=== PATIENT | male | born 1940 | race Caucasian/White ===

== ENCOUNTER 2016-10-20 23:23 | Inpatient (IN) | payer OTHER ==
[2016-10-20] MEDS ORDERED: SODIUM CHLORIDE 1,000 ML IV STA (23:54)
[2016-10-20] MEDS ORDERED: PANTOPRAZOLE SODIUM 40 MG in SODIUM CHLORIDE 100 ML IVPB ONE (23:54)
--- NOTE | 2016-10-21 00:16 | PDOC ---
History of Present Illness - General History Source: EMS, Family, Alf Records Exam Limitations: Clinical Condition, Dementia - History of Present Illness Initial Comments: 10/21/16 01:06 The patient is a 76 year old male, with a significant past medical history of anemia (requiring prior blood transfusions), diabetes, coronary artery disease s /p CABG/stent, Parkinsons disease and dementia, who presents to the emergency department via EMS from [facility] for evaluation. jail records report that the patient had one episode of bright red bloody hematemesis just prior to presentation. The patients family is at the bedside. The patients reports that she visits the patient daily. She reports that the patient was at his baseline state of health yesterday. History is provided entirely by the patients family and skilled nursing records due to the patients baseline dementia. As per family, the patient was recently admitted to a hospital in [place], where he received blood transfusions. While the patient was recently admitted, an endoscopy was attempted but was deferred given the patient 's general clinical condition. Currently in the ED, the patient is endorsing some abdominal discomfort but is unable to provide specifics secondary to the dementia. Allergies: None reported. Past Surgical History: CABG, Stent. Social History: Non smoker. Denies alcohol or drug use. PCP: Dr. Flood <Ashley Harris - Last Filed: 10/21/16 01:57> - General History Source: EMS, Family Exam Limitations: Clinical Condition <Figueroa Tamez - Last Filed: 10/25/16 08:29> - General Chief Complaint: Coffee Ground Emesis Stated Complaint: GI BLEED Time Seen by Provider: 10/20/16 23:37 Past History <Ashley Harris - Last Filed: 10/21/16 01:57> <Figueroa Tamez - Last Filed: 10/25/16 08:29> - Past Medical History Allergies/Adverse Reactions: Allergies Allergy/AdvReac Type Severity Reaction Status Date / Time No Known Allergies Allergy Verified 10/20/16 23:54 Review of Systems - Review of Systems Able to Perform ROS?: No Comments:: 10/21/16 00:46 Unable to perform ROS secondary to the patients baseline dementia. <Ashley Harris - Last Filed: 10/21/16 01:57> *Physical Exam - Vital Signs Last Vital Signs Temp Pulse Resp BP Pulse Ox 92 H 16 79/62 100 10/20/16 23:54 10/20/16 23:54 10/20/16 23:54 10/20/16 23:54 - Physical Exam Comments: 10/21/16 01:57 GENERAL: Awake, alert, ill appearing. HEAD: No signs of trauma. EYES: PERRLA, EOMI, sclera anicteric, conjunctiva clear. ENT: Auricles normal inspection, hearing grossly normal, nares patent, oropharynx clear without exudates. Moist mucosa. NECK: Normal ROM, supple, no lymphadenopathy, JVD, or masses. LUNGS: Tachypneic. Breath sounds equal, clear to auscultation bilaterally. No wheezes, and no crackles. HEART: Regular rate and rhythm, normal S1 and S2, no murmurs, rubs or gallops. ABDOMEN: Epigastric tenderness, diffuse abdominal discomfort. Soft, normoactive bowel sounds. No guarding, no rebound. No masses. EXTREMITIES: Normal range of motion, no edema. No clubbing or cyanosis. No cords , erythema, or tenderness. NEUROLOGICAL: Cranial nerves II through XII intact. Normal speech, gait deferred. SKIN: Pallor appearance. Dry, normal turgor, no rashes or lesions noted. <Ashley Harris - Last Filed: 10/21/16 01:57> ED Treatment Course - LABORATORY CBC & Chemistry Diagram: 10/21/16 00:25 10/21/16 00:25 <Ashley Harris - Last Filed: 10/21/16 01:57> - LABORATORY CBC & Chemistry Diagram: 10/25/16 05:30 10/25/16 05:30 - RADIOLOGY Radiology Studies Ordered: Category Date Time Status CHEST X-RAY PORTABLE* [RAD] Stat Radiology 10/20/16 23:54 Ordered <Figueroa Tamez - Last Filed: 10/25/16 08:29> Medical Decision Making - Critical Care Time Total Critical Care Time (minutes): 35 Critical Care Statement: The care of this patient involved high complexity decision making to prevent further life threatening deterioration of the patient 's condition and/or to evalute & treat vital organ system(s) failure or risk of failure. - Medical Decision Making 10/21/16 01:57 Connected and case discussed with Dr. Adan at 01:30. <Ashley Harris - Last Filed: 10/21/16 01:57> - Medical Decision Making 10/21/16 00:24 A portion of this note was documented by scribe services under my direction. I have reviewed the details of the note, within reason, and agree with the documentation with the following case summary and management plan written by me. Patient treated in the ED. Nursing notes are reviewed and incorporated into the medical decision-making. Vital signs reviewed. Peripheral IV access obtained by the nurse, laboratory studies are drawn and sent, reviewed and interpreted by myself. Vital Signs Temp Pulse Resp BP Pulse Ox 92 H 16 79/62 100 10/20/16 23:54 10/20/16 23:54 10/20/16 23:54 10/20/16 23:54 76-year-old male with past medical history of dementia, Parkinson's disease, coronary disease status post stents and quadruple bypass, anemia, prior blood transfusions, diabetes presents from [facility] for hematemesis. According to the family, the patient was in his usual state of health yesterday. Patient's was visiting the patient. However, patient was noted to have 1 episode of bloody hematemesis. He's been complaining about abdominal discomfort pain. However, given his dementia, patient's unable to further characterize. His blood pressure was approximately 80 systolic by EMS. Was given IV fluids which to blood pressure improved. Patient was recently admitted one week ago at the hospital for 3 units of blood transfusions. They had attempted to perform an endoscopy but was deferred given the patient's general condition. I had spoken to the patient regarding patient circumstances. They confirm that the patient is DNR and DNI. They state that they are okay with blood transfusions and IV fluids. At this time, there leaning against heroic measures at this time. Protonix bolus and drip was ordered. There are concerns for upper GI bleed. Patient's condition is guarded. 10/21/16 01:52 CBC, BMP 10/21/16 00:25 10/21/16 00:25 CMP Sodium 141 mmol/L (136-145) 10/21/16 00:25 Potassium 4.8 mmol/L (3.5-5.1) 10/21/16 00:25 Chloride 101 mmol/L (98-107) 10/21/16 00:25 Carbon Dioxide 27 mmol/L (21-32) 10/21/16 00:25 Anion Gap 13 (8-16) 10/21/16 00:25 BUN 29 mg/dL (7-18) H 10/21/16 00:25 Creatinine 1.0 mg/dL (0.7-1.3) 10/21/16 00:25 Creat Clearance w eGFR > 60 (>60) 10/21/16 00:25 Random Glucose 185 mg/dL (74-106) H 10/21/16 00:25 Lactic Acid 7.387 mmol/L (0.4-2.0) H* 10/21/16 00:25 Calcium 8.1 mg/dL (8.5-10.1) L 10/21/16 00:25 Phosphorus 4.2 mg/dL (2.5-4.9) 10/21/16 00:25 Magnesium 1.8 mg/dL (1.8-2.4) 10/21/16 00:25 Total Bilirubin 0.5 mg/dL (0.2-1.0) 10/21/16 00:25 AST 18 U/L (15-37) 10/21/16 00:25 ALT 17 U/L (12-78) 10/21/16 00:25 Alkaline Phosphatase 91 U/L (45-117) 10/21/16 00:25 Creatine Kinase 47 IU/L (39-308) 10/21/16 00:25 Troponin I < 0.02 ng/ml (0.00-0.05) 10/21/16 00:25 Total Protein 5.6 g/dl (6.4-8.2) L 10/21/16 00:25 Albumin 2.4 g/dl (3.4-5.0) L 10/21/16 00:25 Patient alcohol was 5.8. Lactic acid 7.4 which is likely secondary to anemia. However, antibiotics initiated for lactic acidosis. 2 units of PRBCs ordered. Protonix has been ordered. I spoke with the family with the patient's poor prognosis. There where that the patient has a possibility of . The meantime , they reconfirmed that he is DNR/DNI. At this time, they are considering potentially allowing endoscopy for the patient's father but is aware that this may not be the best option for him. They state that they will discuss this with epigastric. The patient had seen Dr. Munoz in the past. CAT scan the abdomen pelvis is ordered and pending. Case discussed with ICU CENTRIFUGAL SEPARATOR Jimy who accepts the patient to the ICU. Case discussed with Dr. Adan who accepts the patient to his service. Case discussed in detail with admitting physician including history, physical exam and ancillary studies. Admitting physician has assumed care for the patient, will follow all pending diagnostics and will complete the evaluation and treatment. <Figueroa Tamez - Last Filed: 10/25/16 08:29> *DC/Admit/Observation/Transfer - Attestations Scribe Attestion: 10/21/16 00:44 Documentation prepared by Ashley Harris, acting as medical concierge for Figueroa Tamez MD. <Ashley Harris - Last Filed: 10/21/16 01:57> - Discharge Dispostion Admit: Yes <Figueroa Tamez - Last Filed: 10/25/16 08:29> Diagnosis at time of Disposition: UGIB (upper gastrointestinal bleed) Anemia Qualifiers: Anemia type: unspecified type Qualified Code(s): D64.9 - Anemia, unspecified - Referrals
[2016-10-21 00:35] LABS: BASOPHIL 0.7 % (0-2.0); EOSINOPHIL 0.3 % (0-4.5); MCH 23.8 pg (25.7-33.7); MCHC 28.8 g/dl (32.0-35.9); MEAN CELL VOLUME 82.7 fl (80-96); MEAN PLT VOLUME 7.4 fl (7.5-11.1); NEUTROPHILS 78.2 % (42.8-82.8); PLATELET COUNT 394 K/MM3 (134-434); WHITE BLOOD COUNT 14.1 K/mm3 (4.0-10.0)
[2016-10-21] MEDS ORDERED: PANTOPRAZOLE SODIUM 40 MG VIAL ONE (00:52)
[2016-10-21 00:56] LABS: INR 1.3 (0.82-1.09); PROTHROMBIN TIME (PATIENT) 14.4 SEC (9.98-11.88)
[2016-10-21 00:59] LABS: ACTIVATED PTT 26.2 SECONDS (26.9-34.4)
[2016-10-21 01:07] LABS: ALBUMIN 2.4 g/dl (3.4-5.0); ANION GAP 13 (8-16); BILIRUBIN,TOTAL 0.5 mg/dL (0.2-1.0); CALCIUM 8.1 mg/dL (8.5-10.1); CO2 27 mmol/L (21-32); GLUCOSE,RANDOM 185 mg/dL (74-106); MAGNESIUM 1.8 mg/dL (1.8-2.4); PHOSPHOROUS 4.2 mg/dL (2.5-4.9); SGOT/AST 18 U/L (15-37); SGPT/ALT 17 U/L (12-78); TOT PROT 5.6 g/dl (6.4-8.2)
[2016-10-21 01:09] LABS: ALK PHOS 91 U/L (45-117); TROPONIN I < 0.02 ng/ml (0.00-0.05)
[2016-10-21] MEDS ORDERED: PIPERACILLIN/TAZOB 3.375 GM/50 ML PRE-DOCKED IVPB ONE ×2 (01:18→02:45)
[2016-10-21] MEDS: PANTOPRAZOLE SODIUM 80 MG in SODIUM CHLORIDE 100 ML IVPB SCH ×3 (01:18→20:15)
[2016-10-21] MEDS ORDERED: VANCOMYCIN 1,000 MG in DEXTROSE 5%-WATER - 250 ML IVPB ONE (01:18)
[2016-10-21] MEDS ORDERED: morphine CARPU-JECT 2 MG/1 ML DISP.SYRIN IVPUSH ONE (01:42)
[2016-10-21] MEDS ORDERED: ONDANSETRON 4 MG/2 ML VIAL IVPB PRN ×2 (01:48→23:05)
[2016-10-21] MEDS ORDERED: morphine CARPU-JECT 2 MG/1 ML DISP.SYRIN IVPUSH PRN ×2 (01:48→23:05)
[2016-10-21] MEDS ORDERED: VANCOMYCIN 1 GRAM (PRE-DOCKED) 250 ML IVPB ONE (01:54)
[2016-10-21] MEDS ORDERED: PIPERACILLIN/TAZOB 3.375 GM 3.375 GM in DEXTROSE 5%-WATER - 50 ML IVPB SCH (02:00)
[2016-10-21] MEDS: SODIUM CHLORIDE 1,000 ML IV SCH ×2 (03:19→08:56)
[2016-10-21 04:00] VITALS: BMI 22.6
--- NOTE | 2016-10-21 04:02 | CONSULT ---
Consult Consult Specialty:: Pulm/CCM Reason for Consultation:: hematemesis - History of Present Illness Chief Complaint: hematemesis History of Present Illness: Hx obtained from Family Member/daughter Mr Mireles is a 76 y/o man with dementia, parkinsons, HTN, HL, CAD s/p CABG, stents (years ago) currently only on asa and anemia who presents from [facility] with hematemesis and anemia. Pt was previously living at home and cared for by family. Approximately 1 week ago he became less responsive and was pale prompting admission to [facility] where he was treated for pneumonia and anemia. He was given a few units of blood and Upper endoscopy was considered as there was no source of bleeding but deferred due to overall condition/dementia as well as DNR/DNI status (form in chart). He spent a few days in hospital and was discharged to [facility]. His Hgb was checked on 10/18 and was 8.9. Today at [place] he had an episode of dark red hematemesis and EMS was called. In ER pt was afebrile, hemodynamically stable. Hgb was 5.8. Pt was pale but without distress. Lactate was 7. Protonix bolus and gtt was started. Broad spectrum abx were started as well. There was no sick prodrome and family relates pt had been having a good day prior to vomiting. Pt transferred to ICU for further care. - History Source History Provided By: Family Member, Medical Record Limitations to Obtaining History: Dementia - Past Medical History DIRECTOR OF MEDICAL REVIEW: Yes: Dementia, Parkinson's Cardio/Vascular: Yes: CAD, HTN, Hyperlipdemia - Past Surgical History Past Surgical History: Yes: Bypass, CABG - Alcohol/Substance Use Hx Alcohol Use: Yes Number of Drinks Daily: 3 History of Substance Use: reports: None Date of Last Use: 06/20/11 - Smoking History Smoking history: Former smoker Have you smoked in the past 12 months: No If you are a former smoker, when did you quit?: > 20 yrs ago - Social History Usual Living Arrangement: [facility] ADL: Family Assistance Place of : Other ([place]) History of Recent Travel: No Home Medications - Allergies Allergies/Adverse Reactions: Allergies Allergy/AdvReac Type Severity Reaction Status Date / Time No Known Allergies Allergy Verified 10/20/16 23:54 - Home Medications Home Medications (free text): amlodipine. asa. carbidopa-levodopa. colace. lasix. glipizid. lisinopril. metformin. pantoprazole. ploglitazone. simvastatin. toprol xl Family Disease History - Family Disease History Family History: Unremarkable Review of Systems Unable to obtain ROS, reason: dementia Physical Exam Vital Signs: Vital Signs Temperature Pulse Rate 86 10/21/16 01:27 Respiratory Rate 20 10/21/16 01:27 Blood Pressure 103/51 10/21/16 01:27 O2 Sat by Pulse Oximetry (%) 100 10/21/16 01:27 Constitutional: Yes: Well Nourished, No Distress Eyes: Yes: Conjunctiva Clear, Cataracts HENT: Yes: Atraumatic, Normocephalic Neck: Yes: Supple, Trachea Midline. No: Lymphadenopathy Cardiovascular: Yes: Regular Rate and Rhythm, S1, S2 Respiratory: Yes: CTA Bilaterally. No: Accessory Muscle Use Gastrointestinal: Yes: Normal Bowel Sounds, Soft, Tenderness, Epigastrium. No: Pulsatile Mass ...Rectal Exam: Yes: Deferred Renal/: Yes: WNL Breast(s): Yes: WNL Musculoskeletal: Yes: WNL Extremities: Yes: WNL Edema: No Peripheral Pulses WNL: Yes Integumentary: Yes: WNL Neurological: Yes: Alert, Confusion, Cran Nerves II-XII Intact. No: Facial Droop Imaging - Results EKG: Image Reviewed (Sinus with PAC, TWI V1,V2, normal axis, intervals) Problem List - Problems (1) Anemia Code(s): D64.9 - ANEMIA, UNSPECIFIED Qualifiers: Anemia type: unspecified type Qualified Code(s): D64.9 - Anemia, unspecified (2) UGIB (upper gastrointestinal bleed) Code(s): K92.2 - GASTROINTESTINAL HEMORRHAGE, UNSPECIFIED Assessment/Plan Pulm/CCM Pt seen and examined in ICU A/ 76 y/o man with anemia and hematemesis. He is on ASA but not on any other NSAID, anti-plt therapy, or anti coagulation. GI source of bleeding was already presumed but investigation was deferred due to debility and dementia. He now has hematemesis, is on a protonix gtt and getting PRBC P/ -GI consulted -cont protonix gtt -hold asa, BB and anti-htn -2 PRBC and repeat CBC -maintain 2 peripheral IV at min, 18ga preferred -blood cxl done, sent UA and get cxr -would hold broadly treating for infection as there is no localizing symptoms or prodrome -SCD, protonix gtt -DNR/DNI -ok for floor if holding on to prbc and no further bleeding Briefly discussed options with family regarding EGD. They are weighing options and would like to discuss with GI in am Jimy Schwartz ACNP [id number] 35min CCT Critical Care Total Critical Care Time (in minutes): 35 Critical Care Statement: The care of this patient involved high complexity decision making to prevent further life threatening deterioration of the patient 's condition and/or to evalute & treat vital organ system(s) failure or risk of failure.
[2016-10-21 08:53] LABS: URINE APPEARANCE CLEAR; URINE BILIRUBIN NEGATIVE (NEGATIVE); URINE BLOOD NEGATIVE (NEGATIVE); URINE COLOR YELLOW; URINE GLUCOSE (UA) NEGATIVE (NEGATIVE); URINE KETONE TRACE (NEGATIVE); URINE LEUK ESTERASE TRACE (NEGATIVE); URINE NITRITE NEGATIVE (NEGATIVE); URINE PROTEIN NEGATIVE (NEGATIVE); URINE UROBILINOGEN 2.0 E.U/dl E.U./dl (0.2-1.0)
[2016-10-21] MEDS: MUPIROCIN 2% TOPICAL OINTMENT FOR DECOLONIZATION NS SCH ×2 (09:03→22:00)
[2016-10-21 09:14] LABS: URINE HYALINE CAST 20 /lpf; URINE MUCUS RARE; URINE RBC 1 /hpf (0-3); URINE WBC 4 /hpf (3-5)
[2016-10-21 09:52] LABS: ANISOCYTOSIS 4+; HYPOCHROMIA 3+; MICROCYTOSIS 1+; OVALOCYTES 1+; POIKILOCYTOSIS 1+; POLYCHROMASIA 1+; TEAR DROP CELLS 1+
[2016-10-21 10:19] LABS: EOSINOPHIL 0.2 % (0-4.5); MCH 27.4 pg (25.7-33.7); MCHC 33.4 g/dl (32.0-35.9); MEAN CELL VOLUME 81.9 fl (80-96); NEUTROPHILS 67.1 % (42.8-82.8); PLATELET COUNT 227 K/MM3 (134-434); RDW 21.3 % (11.9-15.9); WHITE BLOOD COUNT 8.4 K/mm3 (4.0-10.0)
[2016-10-21 10:49] LABS: ALBUMIN 2.2 g/dl (3.4-5.0); ANION GAP 7 (8-16); CALCIUM 7.3 mg/dL (8.5-10.1); CO2 29 mmol/L (21-32); COCKROFT - GAULT 89; CREATININE 0.7 mg/dL (0.7-1.3); GLUCOSE,RANDOM 112 mg/dL (74-106); MAGNESIUM 1.7 mg/dL (1.8-2.4); SGOT/AST 16 U/L (15-37); SGPT/ALT 15 U/L (12-78)
[2016-10-21 10:50] LABS: ALK PHOS 72 U/L (45-117); BILIRUBIN,TOTAL 0.7 mg/dL (0.2-1.0); TOT PROT 5.1 g/dl (6.4-8.2)
--- NOTE | 2016-10-21 12:35 | PN ---
Physical Exam: SUBJECTIVE: Patient seen and examined. 76 y/o man with anemia and hematemesis. He is on ASA but not on any other NSAID , anti-plt therapy, or anti coagulation. GI source of bleeding was already presumed but investigation was deferred due to debility and dementia. He now has hematemesis, is on a protonix gtt and getting PRBC Patient lying comfortably in bed. got 2 units blood over night, Hb 7.4 no over nigh haemtmasis. lactic acid decreased to normal afebrile. OBJECTIVE: Vital Signs Period Temp Pulse Resp BP Sys/Albert Pulse Ox Last 24 Hr 97 F-98.4 F 78-82 15-20 79-129/52-63 98 GENERAL: The patient is awake, EYES: PERRL, extraocular movements intact, ENT: Ears normal, moist mucous membranes. NECK: Trachea midline, full range of motion, supple. LUNGS: Breath sounds equal, clear to auscultation bilaterally, no accessory muscle use. HEART: s1s2 normal ABDOMEN: Soft, nontender, nondistended, normoactive bowel sounds, no guarding, no rebound, EXTREMITIES: no edema. SKIN: Warm, dry, Laboratory Results - last 24 hr 10/21/16 10/21/16 10/21/16 08:00 09:45 09:45 WBC 8.4 D RBC 2.69 L Hgb 7.4 L D Hct 22.0 L MCV 81.9 MCHC 33.4 RDW 21.3 H D Plt Count 227 D MPV 7.0 L Neutrophils % 67.1 Lymphocytes % 24.4 D Monocytes % 7.3 Eosinophils % 0.2 Basophils % 1.0 Sodium 143 Potassium 4.2 Chloride 107 Carbon Dioxide 29 Anion Gap 7 L BUN 38 H D Creatinine 0.7 D Creat Clearance w eGFR > 60 Random Glucose 112 H D Lactic Acid Calcium 7.3 L Magnesium 1.7 L Total Bilirubin 0.7 D AST 16 ALT 15 Alkaline Phosphatase 72 D Total Protein 5.1 L Albumin 2.2 L Urine Color Yellow Urine Appearance Clear Urine pH 5.0 Urine Protein Negative Urine Glucose (UA) Negative Urine Ketones Trace H Urine Blood Negative Urine Nitrite Negative Urine Bilirubin Negative Urine Urobilinogen 2.0 e.u/dl Ur Leukocyte Esterase Trace H Urine RBC 1 Urine WBC 4 Ur Epithelial Cells Rare Hyaline Casts 20 Urine Mucus Rare 10/21/16 09:45 WBC RBC Hgb Hct MCV MCHC RDW Plt Count MPV Neutrophils % Lymphocytes % Monocytes % Eosinophils % Basophils % Sodium Potassium Chloride Carbon Dioxide Anion Gap BUN Creatinine Creat Clearance w eGFR Random Glucose Lactic Acid 1.703 Calcium Magnesium Total Bilirubin AST ALT Alkaline Phosphatase Total Protein Albumin Urine Color Urine Appearance Urine pH Urine Protein Urine Glucose (UA) Urine Ketones Urine Blood Urine Nitrite Urine Bilirubin Urine Urobilinogen Ur Leukocyte Esterase Urine RBC Urine WBC Ur Epithelial Cells Hyaline Casts Urine Mucus Active Medications Generic Name Dose Route Start Last Admin Trade Name Freq PRN Reason Stop Dose Admin Chlorhexidine Gluconate 1 applic 10/21/16 22:00 Hibiclens For Decolonization - TP HS JOSE Pantoprazole Sodium 80 mg/ 100 mls @ 10 mls/hr 10/20/16 23:45 10/21/16 10:44 Sodium Chloride IVPB 10 mls/hr Q10H JOSE Administration 8 MG/HR Sodium Chloride 1,000 mls @ 75 mls/hr 10/21/16 02:00 10/21/16 08:56 Normal Saline - IV 75 mls/hr ASDIR JOSE Administration Piperacillin Sod/Tazobactam 50 mls @ 100 mls/hr 10/21/16 02:00 Sod 3.375 gm/ Dextrose IVPB Q8H-IV JOSE Protocol Magnesium Sulfate 1 gm 10/21/16 12:30 Magnesium Sulfate IVPB 10/21/16 12:31 ONCE ONE Morphine Sulfate 2 mg 10/21/16 01:48 Morphine Injection - IVPUSH Q4H PRN PAIN Mupirocin 1 applic 10/21/16 10:00 10/21/16 09:03 Bactroban Ointment (For Decolonization) - NS 10/26/16 09:59 1 applic BID JOSE Administration Ondansetron HCl 4 mg 10/21/16 01:48 Zofran Injection IVPB Q6H PRN NAUSEA ASSESSMENT/PLAN: 76 y/o man with anemia and hematemesis. He is on ASA but not on any other NSAID , anti-plt therapy, or anti coagulation. GI source of bleeding was already presumed but investigation was deferred due to debility and dementia. He now has hematemesis, is on a protonix gtt and getting PRBC Hematemesis -GI consult -cont with protonix gtt -continue to hold hold asa, BB and anti-htn -hb 7.4, will give him one more pc, keep hb> 8 -continue with IV fluid - NPO hypomagnesemia 1gm magnesium given h/o HTN hold htn meds h/o CAD, stent and CABG hold aspirin in view of hematmesis fluid NS 75 ml/hr electrolyte: repeat in am nutrition; npo dvt pro; scd gi pro; protonix dispo: transfer to [facility] surg Visit type - Emergency Visit Emergency Visit: Yes ED Registration Date: 10/21/16 Care time: The patient presented to the Emergency Department on the above date and was hospitalized for further evaluation of their emergent condition. - New Patient This patient is new to me today: Yes Date on this admission: 10/21/16 - Critical Care Critical Care patient: Yes Total Critical Care Time (in minutes): 45 Critical Care Statement: The care of this patient involved high complexity decision making to prevent further life threatening deterioration of the patient 's condition and/or to evalute & treat vital organ system(s) failure or risk of failure.
[2016-10-21] MEDS ORDERED: MAGNESIUM SULF 50% (8.12 MEQ/2 ML-1 GM VIAL) IVPB ONE (13:30)
--- NOTE | 2016-10-21 16:42 | CONSULT ---
Consult Consult Specialty:: infectious diseases Reason for Consultation:: leukocytosis - History of Present Illness Chief Complaint: hemoptysis History of Present Illness: 76 year old male, with a significant past medical history of anemia , diabetes, coronary artery disease s/p CABG/stent, Parkinsons disease and dementia, who was admitted from [facility] for evaluation. jail records report that the patient had one episode of bright red bloody hematemesis just prior to presentation. The patients family is at the bedside. 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 Cardio/Vascular: Yes: CAD, HTN, Hyperlipdemia - Past Surgical History Past Surgical History: Yes: Bypass, CABG - Alcohol/Substance Use Hx Alcohol Use: Yes Number of Drinks Daily: 3 History of Substance Use: reports: None Date of Last Use: 06/20/11 - Smoking History Smoking history: Former smoker Have you smoked in the past 12 months: No If you are a former smoker, when did you quit?: > 20 yrs ago - Social History Usual Living Arrangement: Longterm ADL: Family Assistance History of Recent Travel: No Home Medications - Allergies Allergies/Adverse Reactions: Allergies Allergy/AdvReac Type Severity Reaction Status Date / Time No Known Allergies Allergy Verified 10/20/16 23:54 Review of Systems Unable to obtain ROS, reason: unable to obtain Physical Exam Vital Signs: Vital Signs Temperature 97.8 F 10/21/16 16:00 Pulse Rate 88 10/21/16 16:00 Respiratory Rate 18 10/21/16 16:00 Blood Pressure 120/55 10/21/16 16:00 O2 Sat by Pulse Oximetry (%) 98 10/21/16 10:35 Constitutional: Yes: Mild Distress, Other Eyes: Yes: Conjunctiva Clear Cardiovascular: Yes: Pulse Irregular, Other Respiratory: Yes: Regular, On Nasal O2, Rhonchi, Other Gastrointestinal: Yes: Normal Bowel Sounds, Soft Musculoskeletal: Yes: WNL Extremities: Yes: WNL Neurological: Yes: Alert, Other Psychiatric: Yes: Alert, Other Labs: CBC, BMP 10/21/16 09:45 05/04/17 09:45 Assessment/Plan - Problems (1) Anemia Code(s): D64.9 - ANEMIA, UNSPECIFIED Qualifiers: Anemia type: unspecified type Qualified Code(s): D64.9 - Anemia, unspecified (2) UGIB (upper gastrointestinal bleed) Code(s): K92.2 - GASTROINTESTINAL HEMORRHAGE, UNSPECIFIED leukocytosis after evaluating the patient i think patients leukocytosis is probably form his condition,but he has a very high chance of aspiration I agree with keeping him prophylactically on zosyn for the time being and during the procedure--egd is planned plan continue current mgmt continue zosyn transfusion icu mgmt rest as per the primary team cc time 45 min
--- NOTE | 2016-10-21 17:25 | EKG ---
Test Reason : Blood Pressure : / mmHG Vent. Rate : 086 BPM Atrial Rate : 086 BPM P-R Int : 170 ms QRS Dur : 076 ms QT Int : 410 ms P-R-T Axes : 044 067 062 degrees QTc Int : 490 ms POOR DATA QUALITY, INTERPRETATION MAY BE ADVERSELY AFFECTED SINUS RHYTHM WITH PREMATURE ATRIAL COMPLEXES POSSIBLE ANTERIOR INFARCT , AGE UNDETERMINED ABNORMAL ECG NO PREVIOUS ECGS AVAILABLE Confirmed by RTOY WELSH, REYNA ([id number]) on 10/21/2016 5:25:07 PM Referred By: Confirmed By:REYNA SIMMONS MD
[2016-10-21] MEDS: PIPERACILLIN/TAZOB 3.375 GM 50 ML IVPB SCH (18:15)
[2016-10-21] MEDS ORDERED: PHYTONADIONE 10 MG/1 ML AMP IVPB ONE (18:52)
--- NOTE | 2016-10-21 19:00 | CON.GI ---
Consult Consult Specialty:: GASTROENTEROLOGY Reason for Consultation:: POSSIBLE GI BLEEDING - History of Present Illness Chief Complaint: ANEMIA, "COUGHING UP BLOOD" History of Present Illness: 76 YEAR OLD MALE WITH HISTORY OF PARKINSON'S/ DEMENTIA WHO IS A DNR/DNI ADMITTED FROM INTERMEDI[facility] DUE TO [facility]AG[facility] STATES "COUGHING UP" BLOOD. UPON ARRIVAL TO ED HIS HGB WAS IN THE5.0'SAND DURING THE NIGHT HE HAD BLACK STOOLS. HE WAS PLACE ON PROTNICX AND MADE NPO. HE GOT TWO UNITS BLOOD AND THE COUNTS WENT UP APPROPRIATELY TO THE 7'S. HE HAD A BROWN BOWEL MOVEMENT THIS AM. ABOUT TWO WEEKS AGO HE WAS AT HOME WITH CHANGE IN MENTAL STATUS AND COUGH/SOB AND WAS ADMITTED TO [facility]. HE WAS TREATED FOR PNEUMONIA AND WAS ALSO FOUND TO BE ANEMIA AND RECEIVED 4 UNITS OF PRBC'S. ACCORDING TO THE DAUGTHER HIS STOOLS WERE NEGATIVE FOR OCCULT BLOOD. 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 Cardio/Vascular: Yes: CAD, HTN, Hyperlipdemia Heme/Onc: Yes: Anemia - Past Surgical History Past Surgical History: Yes: Bypass, CABG, Cataract Removal - Alcohol/Substance Use Hx Alcohol Use: Yes Number of Drinks Daily: 3 (DAUGHTER STATES HE DRANK HEAVY IN THE PAST, SINCE PARKINSON DX HE HAS STOPPED) History of Substance Use: reports: None Date of Last Use: 06/20/11 - Smoking History Smoking history: Former smoker Have you smoked in the past 12 months: No If you are a former smoker, when did you quit?: > 20 yrs ago - Social History Usual Living Arrangement: [facility] ADL: Family Assistance History of Recent Travel: No Home Medications - Allergies Allergies/Adverse Reactions: Allergies Allergy/AdvReac Type Severity Reaction Status Date / Time No Known Allergies Allergy Verified 10/20/16 23:54 Family Disease History - Family Disease History Family Disease History: Other: Father (CIRRHOSIS), Mother (TUMOR UNKNOWN), Brother (STROKE) Review of Systems - Review of Systems Constitutional: reports: No Symptoms Eyes: reports: No Symptoms HENT: reports: No Symptoms Neck: reports: No Symptoms Cardiovascular: reports: No Symptoms Respiratory: reports: No Symptoms Gastrointestinal: reports: Abdominal Pain, Dysphagia, Other (RARE HEART BURN) Genitourinary: reports: No Symptoms Musculoskeletal: reports: No Symptoms Integumentary: reports: No Symptoms Neurological: reports: Incoordination, Tremors, Other (BEDRIDDEN,DEMENTIA, DYSPHAGIA) Endocrine: reports: No Symptoms Hematology/Lymphatic: reports: No Symptoms Physical Exam-GI Vital Signs: Vital Signs Temperature 98.9 F 10/21/16 18:00 Pulse Rate 82 10/21/16 18:00 Respiratory Rate 20 10/21/16 18:00 Blood Pressure 117/70 10/21/16 18:00 O2 Sat by Pulse Oximetry (%) 98 10/21/16 10:35 Constitutional: Yes: Well Nourished, No Distress Eyes: Yes: Conjunctiva Clear HENT: Yes: Atraumatic Cardiovascular: Yes: Regular Rate and Rhythm, Murmur, S1, S2, Other (MIDLINE SCAR) Respiratory: Yes: CTA Bilaterally Gastrointestinal Inspection: Yes: Distention ...Auscultate: Yes: Normoactive Bowel Sounds ...Palpate: Yes: Soft, Tenderness, Epigastium Edema: Yes Edema: LLE: 2+, RLE: 2+ Neurological: Yes: Alert Labs: CBC, BMP 10/21/16 09:45 10/21/16 09:45 INR, PTT INR 1.30 (0.82-1.09) H 10/21/16 00:25 Laboratory Tests 10/21/16 10/21/16 10/21/16 00:25 00:25 00:25 WBC 14.1 H RBC 2.45 L Hgb 5.8 L* Hct 20.3 L MCV 82.7 MCHC 28.8 L RDW 29.0 H Plt Count 394 MPV INR 1.30 H Sodium 141 Potassium 4.8 Chloride 101 Carbon Dioxide 27 Anion Gap 13 BUN 29 H Creatinine 1.0 Creat Clearance w eGFR > 60 Random Glucose 185 H Lactic Acid Total Bilirubin 0.5 AST 18 ALT 17 Alkaline Phosphatase 91 Total Protein 5.6 L Albumin 2.4 L 10/21/16 10/21/16 10/21/16 00:25 09:45 09:45 WBC 8.4 D RBC 2.69 L Hgb 7.4 L D Hct 22.0 L MCV 81.9 MCHC 33.4 RDW 21.3 H D Plt Count 227 D MPV 7.0 L INR Sodium 143 Potassium 4.2 Chloride 107 Carbon Dioxide 29 Anion Gap 7 L BUN 38 H D Creatinine 0.7 D Creat Clearance w eGFR > 60 Random Glucose 112 H D Lactic Acid 7.387 H* Total Bilirubin 0.7 D AST 16 ALT 15 Alkaline Phosphatase 72 D Total Protein 5.1 L Albumin 2.2 L 10/21/16 09:45 WBC RBC Hgb Hct MCV MCHC RDW Plt Count MPV INR Sodium Potassium Chloride Carbon Dioxide Anion Gap BUN Creatinine Creat Clearance w eGFR Random Glucose Lactic Acid 1.703 Total Bilirubin AST ALT Alkaline Phosphatase Total Protein Albumin Problem List - Problems (1) UGIB (upper gastrointestinal bleed) Code(s): K92.2 - GASTROINTESTINAL HEMORRHAGE, UNSPECIFIED (2) Acute blood loss anemia Code(s): D62 - ACUTE POSTHEMORRHAGIC ANEMIA (3) Dementia Code(s): F03.90 - UNSPECIFIED DEMENTIA WITHOUT BEHAVIORAL DISTURBANCE (4) Parkinson disease Code(s): G20 - PARKINSON'S DISEASE (5) CAD (coronary artery disease) Code(s): I25.10 - ATHSCL HEART DISEASE OF [place] CORONARY ARTERY W/O ANG PCTRS (6) S/P CABG x 3 Assessment/Plan: KEEP NPO CONTINUE IV PROTONIX CBC AT 11 O'CLOCK POST THIRD UNIT PRBC VIT K 10 MG IVPB SINCE ON ABX AND CURRENT INR IS 1.3 BLEEDING MORE THAN LIKELY UPPER, SMALL BOWEL OR RIGHT COLON. MALIGNANCY IS ON THE DIFFERENTIAL LIST PLUS ESOPHAGITIS, PUD, AVMS,EROSIVE GASTRITIS, PORTAL GASTROPATHY AND/OR VARICES. I HAVE SPOKEN WITH HEALTH CARE PROXY AND FAMILY IN DETAIL. I HAVE EXPLAINED TO THEM THAT TO PROCEED TO ENDOSCOPY WOULD BE A HIGH RISK PROCEDURE AND THE RISKS WOULD BE: OVER SEDATION, POSSIBLE INTUBATION, FURTHER UNCONTROLLED BLEEDING , PERFORATION, ASPIRATION AND EVEN . I HAVE ALSO EXPLAINED THAT THE PROCEDURE MAY FIND HE SOURCE OF BLEEDING AND MAY BE ABLE TO TREAT THAT BLEEDING. THEY WILL CONSIDER THIS AND LET ME KNOW IN THE AM IF THEY WOULD LIKE TO PROCEED WITH THE EXAM. MALCOLM HAM MD Code(s): Z95.1 - PRESENCE OF AORTOCORONARY BYPASS GRAFT
--- NOTE | 2016-10-21 20:05 | HP ---
Admitting History and Physical - Primary Care Physician PCP: Saturnino Flood - Admission Chief Complaint: Unable to obtain History of Present Illness: Mr Mireles is a 76 year old male who was admitted for anemia. I spoke with patient's daughter over the phone. She says Mr Mireles was in his normal state of health and was doing well at the SNF. However yesterday he had an episode of hematemesis and was brought in. She states that he had this in the past and was admitted at another hospital. He was transfused there and EGD was attempted but unsuccessful. He was sent here and admitted for further treatment. 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 Cardiovascular: Yes: CAD, HTN, Hyperlipdemia Heme/Onc: Yes: Anemia - Past Surgical History Past Surgical History: Yes: Bypass, CABG, Cataract Removal - Advance Directives Advance Directives: Yes: DNR - Smoking History Smoking history: Former smoker Have you smoked in the past 12 months: No If you are a former smoker, when did you quit?: > 20 yrs ago - Alcohol/Substance Use Hx Alcohol Use: Yes Number of Drinks Daily: 3 (DAUGHTER STATES HE DRANK HEAVY IN THE PAST, SINCE PARKINSON DX HE HAS STOPPED) History of Substance Use: reports: None Date of Last Use: 06/20/11 - Social History Usual Living Arrangement: Yes: [facility] ADL: Family Assistance History of Recent Travel: No Home Medications - Allergies Allergies/Adverse Reactions: Allergies Allergy/AdvReac Type Severity Reaction Status Date / Time No Known Allergies Allergy Verified 10/20/16 23:54 Family Disease History - Family Disease History Family Disease History: Other: Father (CIRRHOSIS), Mother (TUMOR UNKNOWN), Brother (STROKE) Review of Systems Unable to obtain ROS, reason: dementia Physical Examination Vital Signs: Vital Signs Temperature 98.9 F 10/21/16 18:00 Pulse Rate 82 10/21/16 18:00 Respiratory Rate 20 10/21/16 18:00 Blood Pressure 117/70 10/21/16 18:00 O2 Sat by Pulse Oximetry (%) 98 10/21/16 10:35 Constitutional: Yes: Well Nourished, No Distress, Calm Eyes: Yes: Conjunctiva Clear, PERRL HENT: Yes: Atraumatic, Normocephalic Cardiovascular: Yes: Regular Rate and Rhythm. No: Gallop, Murmur, Rub Respiratory: Yes: Regular, CTA Bilaterally. No: Rales, Rhonchi, Wheezes Gastrointestinal: Yes: Normal Bowel Sounds, Soft. No: Distention, Tenderness Extremities: Yes: WNL Edema: No Labs: CBC, BMP 10/21/16 09:45 10/21/16 09:45 Imaging - Results Chest X-ray: Report Reviewed, Image Reviewed Cat Scan: Report Reviewed Problem List - Problems (1) Acute blood loss anemia Assessment/Plan: -secondary to GIB -receiving transfusion -monitor in the ICU Code(s): D62 - ACUTE POSTHEMORRHAGIC ANEMIA (2) UGIB (upper gastrointestinal bleed) Assessment/Plan: -GI consulted -on protonix gtt -defer EGD to GI Code(s): K92.2 - GASTROINTESTINAL HEMORRHAGE, UNSPECIFIED (3) CAD (coronary artery disease) Assessment/Plan: -no complaints of chest pain -monitor -no anticoagulation or antiplatelet agents Code(s): I25.10 - ATHSCL HEART DISEASE OF [place] CORONARY ARTERY W/O ANG PCTRS (4) Dementia Assessment/Plan: -at baseline per family Code(s): F03.90 - UNSPECIFIED DEMENTIA WITHOUT BEHAVIORAL DISTURBANCE (5) Parkinson disease Assessment/Plan: -monitor Code(s): G20 - PARKINSON'S DISEASE (6) Leukocytosis Assessment/Plan: -ID consulted -on zosyn Code(s): D72.829 - ELEVATED WHITE BLOOD CELL COUNT, UNSPECIFIED Assessment/Plan 48 minutes critical care time spent in care of this patient
[2016-10-21] MEDS ORDERED: CHLORHEXIDINE GLUCONATE 4% CLEANSER FOR DECOLONIZATION TP SCH (22:00)
[2016-10-21 22:08] LABS: MCH 27.5 pg (25.7-33.7); MCHC 32.2 g/dl (32.0-35.9); MEAN CELL VOLUME 85.4 fl (80-96); MEAN PLT VOLUME 7.2 fl (7.5-11.1); PLATELET COUNT 264 K/MM3 (134-434); RDW 20.9 % (11.9-15.9); WHITE BLOOD COUNT 10.2 K/mm3 (4.0-10.0)
[2016-10-21] MEDS ORDERED: SODIUM CHLORIDE 1,000 ML IV SCH (23:05)
[2016-10-22] MEDS: PIPERACILLIN/TAZOB 3.375 GM 50 ML IVPB SCH ×2 (02:45→10:25)
[2016-10-22 06:32] LABS: BASOPHIL 0.9 % (0-2.0); EOSINOPHIL 1.7 % (0-4.5); MCH 28.1 pg (25.7-33.7); MCHC 33.2 g/dl (32.0-35.9); MEAN CELL VOLUME 84.8 fl (80-96); MEAN PLT VOLUME 7.2 fl (7.5-11.1); NEUTROPHILS 64.2 % (42.8-82.8); PLATELET COUNT 269 K/MM3 (134-434); RDW 19.3 % (11.9-15.9)
[2016-10-22 06:39] LABS: INR 1.08 (0.82-1.09); PROTHROMBIN TIME (PATIENT) 11.9 SEC (9.98-11.88)
[2016-10-22 06:54] LABS: ALBUMIN 2.4 g/dl (3.4-5.0); ANION GAP 4 (8-16); BILIRUBIN,TOTAL 0.7 mg/dL (0.2-1.0); CALCIUM 7.6 mg/dL (8.5-10.1); CO2 30 mmol/L (21-32); COCKROFT - GAULT 124.58; CREATININE 0.5 mg/dL (0.7-1.3); GLUCOSE,RANDOM 67 mg/dL (74-106); SGOT/AST 17 U/L (15-37); SGPT/ALT 16 U/L (12-78); TOT PROT 5.6 g/dl (6.4-8.2)
[2016-10-22 06:56] LABS: ALK PHOS 74 U/L (45-117)
[2016-10-22] MEDS: PANTOPRAZOLE SODIUM 80 MG in SODIUM CHLORIDE 100 ML IVPB SCH ×2 (07:00→18:30)
[2016-10-22] MEDS: MUPIROCIN 2% TOPICAL OINTMENT FOR DECOLONIZATION NS SCH ×2 (10:25→22:00)
--- NOTE | 2016-10-22 10:26 | PN ---
Progress Note, Physician Chief Complaint: Mr Mireles says he feels fine and is not hurting. Cannot obtain further subjective. - Current Medication List Current Medications: Active Medications Chlorhexidine Gluconate (Hibiclens For Decolonization -) 1 applic TP HS JOSE Piperacillin Sod/Tazobactam Sod (Zosyn 3.375gm Ivpb (Pre-Docked)) 50 mls @ 100 mls/hr IVPB Q8H-IV JOSE PRN Reason: Protocol Last Admin: 10/22/16 10:25 Dose: 100 mls/hr Pantoprazole Sodium 80 mg/ (Sodium Chloride) 100 mls @ 10 mls/hr IVPB Q10H OJSE PRN Reason: 8 MG/HR Last Admin: 10/22/16 07:00 Dose: Not Given Sodium Chloride (Normal Saline -) 1,000 mls @ 75 mls/hr IV ASDIR JOSE Last Admin: 10/22/16 02:45 Dose: 75 mls/hr Morphine Sulfate (Morphine Injection -) 2 mg IVPUSH Q4H PRN PRN Reason: PAIN Mupirocin (Bactroban Ointment (For Decolonization) -) 1 applic NS BID JOSE Stop: 10/26/16 09:59 Last Admin: 10/22/16 10:25 Dose: 1 applic Ondansetron HCl (Zofran Injection) 4 mg IVPB Q6H PRN PRN Reason: NAUSEA - Objective Vital Signs: Vital Signs Temperature 98.1 F 10/22/16 06:00 Pulse Rate 77 10/22/16 08:00 Respiratory Rate 21 10/22/16 08:13 Blood Pressure 128/75 10/22/16 08:00 O2 Sat by Pulse Oximetry (%) 100 10/22/16 08:13 Constitutional: Yes: Well Nourished, No Distress, Calm Cardiovascular: Yes: Regular Rate and Rhythm. No: Gallop, Murmur, Rub Respiratory: Yes: Regular, CTA Bilaterally. No: Rales, Rhonchi, Wheezes Gastrointestinal: Yes: Normal Bowel Sounds, Soft. No: Distention, Tenderness Extremities: Yes: WNL Edema: No Labs: CBC, BMP 10/22/16 05:10 10/22/16 05:10 INR, PTT INR 1.08 (0.82-1.09) 05/05/17 05:10 Problem List - Problems (1) Acute blood loss anemia Code(s): D62 - ACUTE POSTHEMORRHAGIC ANEMIA (2) UGIB (upper gastrointestinal bleed) Code(s): K92.2 - GASTROINTESTINAL HEMORRHAGE, UNSPECIFIED (3) CAD (coronary artery disease) Code(s): I25.10 - ATHSCL HEART DISEASE OF [place] CORONARY ARTERY W/O ANG PCTRS (4) Dementia Code(s): F03.90 - UNSPECIFIED DEMENTIA WITHOUT BEHAVIORAL DISTURBANCE (5) Parkinson disease Code(s): G20 - PARKINSON'S DISEASE (6) Leukocytosis Code(s): D72.829 - ELEVATED WHITE BLOOD CELL COUNT, UNSPECIFIED Assessment/Plan (1) Acute blood loss anemia Assessment/Plan: -secondary to GIB -s/p transfusion with good result -monitor Code(s): D62 - ACUTE POSTHEMORRHAGIC ANEMIA (2) UGIB (upper gastrointestinal bleed) Assessment/Plan: -GI consulted and following -on protonix gtt -EGD planned for today Code(s): K92.2 - GASTROINTESTINAL HEMORRHAGE, UNSPECIFIED (3) CAD (coronary artery disease) Assessment/Plan: -no complaints of chest pain -monitor -no anticoagulation or antiplatelet agents Code(s): I25.10 - ATHSCL HEART DISEASE OF [place] CORONARY ARTERY W/O ANG PCTRS (4) Dementia Assessment/Plan: -at baseline per family Code(s): F03.90 - UNSPECIFIED DEMENTIA WITHOUT BEHAVIORAL DISTURBANCE (5) Parkinson disease Assessment/Plan: -monitor Code(s): G20 - PARKINSON'S DISEASE (6) Leukocytosis Assessment/Plan: -resolved -antibiotics per ID Code(s): D72.829 - ELEVATED WHITE BLOOD CELL COUNT, UNSPECIFIED 31 minutes critical care time spent in care of this patient
[2016-10-22] MEDS ORDERED: SODIUM CHLORIDE 1,000 ML IV SCH (11:50)
--- NOTE | 2016-10-22 12:45 | PN ---
Teaching Attending Note Name of Resident: Simon Roldan ATTENDING PHYSICIAN STATEMENT I saw and evaluated the patient. I reviewed the resident's note and discussed the case with the resident. I agree with the resident's findings and plan as documented. SUBJECTIVE: Pt seen and examined in the ICU. No further bleeding. Received 4 units PRBC in total so far. Family agreeable to endoscopy. OBJECTIVE: Last Vital Signs Temp Pulse Resp BP Pulse Ox 98.1 F 86 17 132/78 100 10/22/16 06:00 10/22/16 12:00 10/22/16 12:00 10/22/16 12:00 10/22/16 08:13 Intake & Output 10/19/16 10/20/16 10/21/16 10/22/16 23:59 23:59 23:59 23:59 Intake Total 2345 750 Output Total 1100 600 Balance 1245 150 Weight 180 lb 153 lb 3.54 oz 152 lb 2 oz Gen: NAD at rest Heart: RRR Lung: scattered rhonchi Abd: soft, nontender Ext: no edema CBC, BMP 10/22/16 05:10 10/22/16 05:10 Active Medications Chlorhexidine Gluconate (Hibiclens For Decolonization -) 1 applic TP HS JOSE Piperacillin Sod/Tazobactam Sod (Zosyn 3.375gm Ivpb (Pre-Docked)) 50 mls @ 100 mls/hr IVPB Q8H-IV JOSE PRN Reason: Protocol Last Admin: 10/22/16 10:25 Dose: 100 mls/hr Pantoprazole Sodium 80 mg/ (Sodium Chloride) 100 mls @ 10 mls/hr IVPB Q10H JOSE PRN Reason: 8 MG/HR Last Admin: 10/22/16 07:00 Dose: Not Given Sodium Chloride (Normal Saline -) 1,000 mls @ 42 mls/hr IV ASDIR JOSE Morphine Sulfate (Morphine Injection -) 2 mg IVPUSH Q4H PRN PRN Reason: PAIN Mupirocin (Bactroban Ointment (For Decolonization) -) 1 applic NS BID JOSE Stop: 10/26/16 09:59 Last Admin: 10/22/16 10:25 Dose: 1 applic Ondansetron HCl (Zofran Injection) 4 mg IVPB Q6H PRN PRN Reason: NAUSEA ASSESSMENT AND PLAN: GI Bleed Acute Blood Loss Anemia s/p PRBC transfusions Lactic Acidosis from above HTN CAD s/p CABG Parkinsons Disease Dementia - monitor H/H - transfuse as needed - protonix gtt - decrease IVF rate - can d/c antibiotics as pt afebrile with negative cultures, initial leukocytosis likely leukamoid reaction - for endoscopy - DVT prophylaxis - can monitor on floor
[2016-10-22] MEDS ORDERED: PROPOFOL 20 ML ONE ×3 (15:49)
[2016-10-22] MEDS ORDERED: TETRACAINE/BENZOCAINE/BUTAMBEN 20 GM SPR TP ONE (15:49)
--- NOTE | 2016-10-22 16:19 | PN ---
Physical Exam: SUBJECTIVE: Patient seen post-endoscopy. Lethargic, easily arousable, NAD. portoguese speaking, following commands. OBJECTIVE: Vital Signs Period Temp Pulse Resp BP Sys/Albert Pulse Ox Last 24 Hr 97.6 F-98.9 F 76-94 9-21 97-132/50-83 100-100 GENERAL: in no acute distress. HEAD: Normal with no signs of trauma. EYES: PERRL, extraocular movements intact, sclera anicteric, conjunctiva clear. opacities in b/l iris. No ptosis. ENT: nares patent, oropharynx clear without exudates/erythema, dry mucous membranes. missing dentition NECK: Trachea midline, supple. LUNGS: diffuse rhonchi HEART: Regular rate and rhythm, S1, S2 without murmur, rub or gallop. ABDOMEN: Soft, nontender, nondistended, normoactive bowel sounds, no guarding EXTREMITIES: 2+ pulses, warm, well-perfused, no edema. Laboratory Results - last 24 hr 10/21/16 10/22/16 10/22/16 21:45 05:10 05:10 WBC 10.2 H 8.0 RBC 3.21 L 3.63 L Hgb 8.8 L D 10.2 L D Hct 27.4 L D 30.8 L MCV 85.4 84.8 MCHC 32.2 33.2 RDW 20.9 H 19.3 H Plt Count 264 269 MPV 7.2 L 7.2 L Neutrophils % 64.2 Lymphocytes % 25.9 Monocytes % 7.3 Eosinophils % 1.7 D Basophils % 0.9 INR Sodium 146 H Potassium 3.7 Chloride 112 H Carbon Dioxide 30 Anion Gap 4 L BUN 31 H Creatinine 0.5 L D Creat Clearance w eGFR > 60 Random Glucose 67 L D Calcium 7.6 L Total Bilirubin 0.7 AST 17 ALT 16 Alkaline Phosphatase 74 B-Natriuretic Peptide 710.79 H Total Protein 5.6 L Albumin 2.4 L 10/22/16 05:10 WBC RBC Hgb Hct MCV MCHC RDW Plt Count MPV Neutrophils % Lymphocytes % Monocytes % Eosinophils % Basophils % INR 1.08 Sodium Potassium Chloride Carbon Dioxide Anion Gap BUN Creatinine Creat Clearance w eGFR Random Glucose Calcium Total Bilirubin AST ALT Alkaline Phosphatase B-Natriuretic Peptide Total Protein Albumin Active Medications Generic Name Dose Route Start Last Admin Trade Name Freq PRN Reason Stop Dose Admin Chlorhexidine Gluconate 1 applic 10/22/16 22:00 Hibiclens For Decolonization - TP HS JOSE Pantoprazole Sodium 80 mg/ 100 mls @ 10 mls/hr 10/22/16 06:15 10/22/16 07:00 Sodium Chloride IVPB Not Given Q10H JOSE 8 MG/HR Sodium Chloride 1,000 mls @ 42 mls/hr 10/22/16 11:50 Normal Saline - IV ASDIR JOSE Morphine Sulfate 2 mg 10/21/16 23:05 Morphine Injection - IVPUSH Q4H PRN PAIN Mupirocin 1 applic 10/22/16 10:00 10/22/16 10:25 Bactroban Ointment (For Decolonization) - NS 10/26/16 09:59 1 applic BID JOSE Administration Ondansetron HCl 4 mg 10/21/16 23:05 Zofran Injection IVPB Q6H PRN NAUSEA ASSESSMENT/PLAN: 76 yr old man with HTN, parkinson's disease, dementia presented with hematemesis admitted for GI bleed and anemia. - Maintain in unit, pt is high risk for repeat GI bleed GI - s/p endoscopy with Dr. Munoz, found to have large ulcer in the angularis - CBC q8hr to trend h/h, transfuse to maintain hgb>8, IV protonix drip, zofran 4mg q6hr prn, NPO - Dr. Avina covering this weekend - avoid nsaids - Clinimix and intralipids IV due to prolonged NPO status - plan for repeat endoscopy for biopsy, ulcer appearance was suspicious for malignancy - abd/ct with cholelithiasis and fecal retention, no cholecystitis, no abdominal masses/pneumoperitoneum - family in agreement of plan #Neurological - parkinson's disease/Dementia - pt currently calm/cooperative - hold oral meds #Hematological - leucocytosis trended down, pt afebrile - monitor off antibiotics - normocytic anemia secondary to active bleed - s/p 4 units of prbc's with improved h/h Pulmonary - chest xray without infiltrate/effusion - not in respiratory distress - maintain on nasal cannula prn Code status: DNR DVT: SCD's, avoid pharmacological anticoags due to active bleed Diet: npo Visit type - Emergency Visit Emergency Visit: No - New Patient This patient is new to me today: Yes Date on this admission: 10/22/16 - Critical Care Critical Care patient: Yes Total Critical Care Time (in minutes): 40 Critical Care Statement: The care of this patient involved high complexity decision making to prevent further life threatening deterioration of the patient 's condition and/or to evalute & treat vital organ system(s) failure or risk of failure.
--- NOTE | 2016-10-22 17:19 | PN ---
Progress Note (short form) - Note Progress Note: GASTROENTEROLOGY SEE ENDO REPORT: LARGE ULCER WITH BLEEDING VESSEL UNDER CLOT, THERAPY GIVEN STOPPED BLEEDING BUT HARD ULCER BED AND SURROUNDING MUCOSA COULD NOT HOLD CLIPS KEEP NPO IV PROTONIX CBC Q 8 RELOOK NEXT WEEK FOR BIOPSY MALIGNANCY SUSPECTED CLINIMIX AND INTRALIPID IF BLEEDS AGAIN SHOULD HAVE ANOTHER ENDOSCOPY OVER WEEKEND FAMILY AND STAFF INFORMED MALCOLM HAM MD Problem List - Problems (1) UGIB (upper gastrointestinal bleed) Code(s): K92.2 - GASTROINTESTINAL HEMORRHAGE, UNSPECIFIED (2) Acute blood loss anemia Code(s): D62 - ACUTE POSTHEMORRHAGIC ANEMIA (3) Dementia Code(s): F03.90 - UNSPECIFIED DEMENTIA WITHOUT BEHAVIORAL DISTURBANCE (4) Parkinson disease Code(s): G20 - PARKINSON'S DISEASE (5) CAD (coronary artery disease) Code(s): I25.10 - ATHSCL HEART DISEASE OF [place] CORONARY ARTERY W/O ANG PCTRS (6) S/P CABG x 3 Code(s): Z95.1 - PRESENCE OF AORTOCORONARY BYPASS GRAFT
[2016-10-22] MEDS ORDERED: MULTIVIT INJECTION ADULT 10 ML in AMINO ACIDS 4.25%/D5W 1,000 ML IV SCH (17:30)
[2016-10-22] MEDS: AMINO ACIDS 4.25%/D5W 1,000 ML IV SCH (18:43)
[2016-10-22] MEDS: MULTIVIT INJ. ADULT COMBO WITH VIT K 1 COMBO 10 ML VIAL IV SCH (18:44)
[2016-10-22] MEDS: CHLORHEXIDINE GLUCONATE 4% CLEANSER FOR DECOLONIZATION TP SCH (22:00)
[2016-10-23 01:00] LABS: BASOPHIL 1.1 % (0-2.0); EOSINOPHIL 2.8 % (0-4.5); MCH 28.4 pg (25.7-33.7); MCHC 32.9 g/dl (32.0-35.9); MEAN CELL VOLUME 86.2 fl (80-96); MEAN PLT VOLUME 7.3 fl (7.5-11.1); NEUTROPHILS 64.7 % (42.8-82.8); PLATELET COUNT 257 K/MM3 (134-434); RDW 19.7 % (11.9-15.9); WHITE BLOOD COUNT 6.8 K/mm3 (4.0-10.0)
[2016-10-23] MEDS: FAT EMULSIONS 20% 500 ML PREMIX INFUS.BAG IV SCH ×2 (02:46→22:55)
[2016-10-23] MEDS: PANTOPRAZOLE SODIUM 80 MG in SODIUM CHLORIDE 100 ML IVPB SCH ×2 (07:49→15:02)
--- NOTE | 2016-10-23 08:22 | PN ---
Progress Note (short form) - Note Progress Note: PULM / CRITICAL CARE PROGRESS NOTE: Pt seen and examined in the ICU. 24 HOUR EVETNS: -EGD done - hard ulcer, no active bleeding - suspicious for malignancy -No more transfusions, Hgb stable -Had 1 bloody BM, but probably old blood -Asking for coffee Current Medications Chlorhexidine Gluconate (Hibiclens For Decolonization -) 1 applic TP HS COUNTS INCLUDE 234 BEDS AT THE [facility] Last Admin: 10/22/16 22:00 Dose: 1 applic Fat Emulsion Intravenous (Intralipid -) 500 ml IV DAILY@2200 COUNTS INCLUDE 234 BEDS AT THE [facility] Last Admin: 10/23/16 02:46 Dose: 500 ml Pantoprazole Sodium 80 mg/ (Sodium Chloride) 100 mls @ 10 mls/hr IVPB Q10H COUNTS INCLUDE 234 BEDS AT THE [facility] PRN Reason: 8 MG/HR Last Admin: 10/23/16 07:49 Dose: 10 mls/hr Amino Acids (Clinimix -) 1,000 mls @ 84 mls/hr IV Q12H COUNTS INCLUDE 234 BEDS AT THE [facility] Last Admin: 10/22/16 18:43 Dose: 84 mls/hr Morphine Sulfate (Morphine Injection -) 2 mg IVPUSH Q4H PRN PRN Reason: PAIN Multivitamins/Minerals (Infuvite Adult -) 10 ml IV DAILY COUNTS INCLUDE 234 BEDS AT THE [facility] Last Admin: 10/22/16 18:44 Dose: Not Given Mupirocin (Bactroban Ointment (For Decolonization) -) 1 applic NS BID COUNTS INCLUDE 234 BEDS AT THE [facility] Stop: 10/26/16 09:59 Last Admin: 10/22/16 22:00 Dose: 1 applic Ondansetron HCl (Zofran Injection) 4 mg IVPB Q6H PRN PRN Reason: NAUSEA Last Vital Signs Temp Pulse Resp BP Pulse Ox 98.1 F 86 17 132/78 100 10/22/16 06:00 10/22/16 12:00 10/22/16 12:00 10/22/16 12:00 10/22/16 08:13 Intake & Output 10/19/16 10/20/16 10/21/16 10/22/16 23:59 23:59 23:59 23:59 Intake Total 2345 750 Output Total 1100 600 Balance 1245 150 Weight 180 lb 153 lb 3.54 oz 152 lb 2 oz Gen: NAD at rest Heart: RRR Lung: scattered rhonchi Abd: soft, nontender Ext: no edema CBC, BMP 10/23/16 00:00 10/22/16 05:10 ASSESSMENT AND PLAN: GI Bleed Acute Blood Loss Anemia s/p PRBC transfusions Lactic Acidosis from above HTN CAD s/p CABG Parkinsons Disease Dementia -NPO -PPI -CBCs -Repeat EGD if re-bleeds -GI follow up -DVT prophylaxis with venodynes Transfer to floor [facility] Gal[facility] Pulm/Critical Care [employer]
[2016-10-23] MEDS: AMINO ACIDS 4.25%/D5W 1,000 ML IV SCH ×2 (08:30→22:54)
[2016-10-23] MEDS: MULTIVIT INJ. ADULT COMBO WITH VIT K 1 COMBO 10 ML VIAL IV SCH ×2 (08:31→15:01)
[2016-10-23] MEDS: MUPIROCIN 2% TOPICAL OINTMENT FOR DECOLONIZATION NS SCH ×2 (09:07→22:54)
--- NOTE | 2016-10-23 09:44 | PN ---
Progress Note, Physician History of Present Illness: Pt resting comfortably, no anesthesia complaints. - Current Medication List Current Medications: Active Medications Chlorhexidine Gluconate (Hibiclens For Decolonization -) 1 applic TP HS [facility] Last Admin: 10/22/16 22:00 Dose: 1 applic Fat Emulsion Intravenous (Intralipid -) 500 ml IV DAILY@2200 JOSE Last Admin: 10/23/16 02:46 Dose: 500 ml Pantoprazole Sodium 80 mg/ (Sodium Chloride) 100 mls @ 10 mls/hr IVPB Q10H JOSE PRN Reason: 8 MG/HR Last Admin: 10/23/16 07:49 Dose: 10 mls/hr Amino Acids (Clinimix -) 1,000 mls @ 84 mls/hr IV Q12H [facility] Last Admin: 10/23/16 08:30 Dose: 84 mls/hr Morphine Sulfate (Morphine Injection -) 2 mg IVPUSH Q4H PRN PRN Reason: PAIN Multivitamins/Minerals (Infuvite Adult -) 10 ml IV DAILY [facility] Last Admin: 10/23/16 08:31 Dose: 10 ml Mupirocin (Bactroban Ointment (For Decolonization) -) 1 applic NS BID [facility] Stop: 10/26/16 09:59 Last Admin: 10/23/16 09:07 Dose: 1 applic Ondansetron HCl (Zofran Injection) 4 mg IVPB Q6H PRN PRN Reason: NAUSEA - Objective Vital Signs: Vital Signs Temperature 98 F 10/23/16 02:00 Pulse Rate 80 10/23/16 08:00 Respiratory Rate 22 10/23/16 08:00 Blood Pressure 161/81 10/23/16 08:00 O2 Sat by Pulse Oximetry (%) 96 10/23/16 08:59 Constitutional: Yes: Well Nourished, No Distress, Calm Musculoskeletal: Yes: WNL Labs: CBC, BMP 10/23/16 00:00 10/22/16 05:10 INR, PTT INR 1.08 (0.82-1.09) 10/22/16 05:10 Assessment/Plan POD#1 s/p EGD with clip for coagulation. Doing well. D/C from anesthesia care.
--- NOTE | 2016-10-23 14:01 | PN ---
Progress Note, Physician History of Present Illness: patient looking better no new issues patient for endoscopy today calm - Current Medication List Current Medications: Active Medications Chlorhexidine Gluconate (Hibiclens For Decolonization -) 1 applic TP HS [facility] Last Admin: 10/22/16 22:00 Dose: 1 applic Fat Emulsion Intravenous (Intralipid -) 500 ml IV DAILY@2200 JOSE Last Admin: 10/23/16 02:46 Dose: 500 ml Pantoprazole Sodium 80 mg/ (Sodium Chloride) 100 mls @ 10 mls/hr IVPB Q10H JOSE PRN Reason: 8 MG/HR Last Admin: 10/23/16 07:49 Dose: 10 mls/hr Amino Acids (Clinimix -) 1,000 mls @ 84 mls/hr IV Q12H [facility] Last Admin: 10/23/16 08:30 Dose: 84 mls/hr Morphine Sulfate (Morphine Injection -) 2 mg IVPUSH Q4H PRN PRN Reason: PAIN Multivitamins/Minerals (Infuvite Adult -) 10 ml IV DAILY [facility] Last Admin: 10/23/16 08:31 Dose: 10 ml Mupirocin (Bactroban Ointment (For Decolonization) -) 1 applic NS BID [facility] Stop: 10/26/16 09:59 Last Admin: 10/23/16 09:07 Dose: 1 applic Ondansetron HCl (Zofran Injection) 4 mg IVPB Q6H PRN PRN Reason: NAUSEA - Objective Vital Signs: Vital Signs Temperature 98 F 10/23/16 02:00 Pulse Rate 97 H 10/23/16 10:42 Respiratory Rate 22 10/23/16 08:00 Blood Pressure 161/81 10/23/16 08:00 O2 Sat by Pulse Oximetry (%) 95 10/23/16 10:42 Constitutional: Yes: No Distress, Calm Cardiovascular: Yes: Regular Rate and Rhythm, S1, S2 Respiratory: Yes: Regular, CTA Bilaterally Gastrointestinal: Yes: Normal Bowel Sounds, Soft Genitourinary: Yes: Other (condom) Musculoskeletal: Yes: WNL Extremities: Yes: WNL Integumentary: Yes: Other Neurological: Yes: Alert, Other Psychiatric: Yes: Alert Labs: CBC, BMP 10/23/16 00:00 10/22/16 05:10 INR, PTT INR 1.08 (0.82-1.09) 10/22/16 05:10 Assessment/Plan - Problems (1) Anemia Code(s): D64.9 - ANEMIA, UNSPECIFIED Qualifiers: Anemia type: unspecified type Qualified Code(s): D64.9 - Anemia, unspecified (2) UGIB (upper gastrointestinal bleed) Code(s): K92.2 - GASTROINTESTINAL HEMORRHAGE, UNSPECIFIED leukocytosis after evaluating the patient i think patients leukocytosis is probably form his condition,but he has a very high chance of aspiration I agree with keeping him prophylactically on zosyn for the time being and during the procedure--egd is planned plan continue current mgmt continue zosyn transfusion icu mgmt rest as per the primary team patient for endoscopy today cc time 45 min
--- NOTE | 2016-10-23 14:03 | PN ---
Progress Note, Physician History of Present Illness: patient looking better no new issues post endoscopy findings noted of endoscopy - Current Medication List Current Medications: Active Medications Chlorhexidine Gluconate (Hibiclens For Decolonization -) 1 applic TP HS [facility] Last Admin: 10/22/16 22:00 Dose: 1 applic Fat Emulsion Intravenous (Intralipid -) 500 ml IV DAILY@2200 JO[facility] Last Admin: 10/23/16 02:46 Dose: 500 ml Pantoprazole Sodium 80 mg/ (Sodium Chloride) 100 mls @ 10 mls/hr IVPB Q10H [facility] PRN Reason: 8 MG/HR Last Admin: 10/23/16 07:49 Dose: 10 mls/hr Amino Acids (Clinimix -) 1,000 mls @ 84 mls/hr IV Q12H [facility] Last Admin: 10/23/16 08:30 Dose: 84 mls/hr Morphine Sulfate (Morphine Injection -) 2 mg IVPUSH Q4H PRN PRN Reason: PAIN Multivitamins/Minerals (Infuvite Adult -) 10 ml IV DAILY [facility] Last Admin: 10/23/16 08:31 Dose: 10 ml Mupirocin (Bactroban Ointment (For Decolonization) -) 1 applic NS BID [facility] Stop: 10/26/16 09:59 Last Admin: 10/23/16 09:07 Dose: 1 applic Ondansetron HCl (Zofran Injection) 4 mg IVPB Q6H PRN PRN Reason: NAUSEA - Objective Vital Signs: Vital Signs Temperature 98 F 10/23/16 02:00 Pulse Rate 97 H 10/23/16 10:42 Respiratory Rate 22 10/23/16 08:00 Blood Pressure 161/81 10/23/16 08:00 O2 Sat by Pulse Oximetry (%) 95 10/23/16 10:42 Constitutional: Yes: No Distress, Calm Cardiovascular: Yes: Regular Rate and Rhythm Respiratory: Yes: Regular, Poor Air Entry, Other Gastrointestinal: Yes: Normal Bowel Sounds, Soft Musculoskeletal: Yes: WNL Extremities: Yes: WNL Neurological: Yes: Alert, Other Psychiatric: Yes: Alert Labs: CBC, BMP 10/23/16 00:00 10/22/16 05:10 INR, PTT INR 1.08 (0.82-1.09) 10/22/16 05:10 Assessment/Plan - Problems (1) Anemia Code(s): D64.9 - ANEMIA, UNSPECIFIED Qualifiers: Anemia type: unspecified type Qualified Code(s): D64.9 - Anemia, unspecified (2) UGIB (upper gastrointestinal bleed) Code(s): K92.2 - GASTROINTESTINAL HEMORRHAGE, UNSPECIFIED leukocytosis after evaluating the patient i think patients leukocytosis is probably form his condition,but he has a very high chance of aspiration I agree with keeping him prophylactically on zosyn for the time being and during the procedure--egd is planned plan continue current mgmt stopped abx transfusion icu mgmt rest as per the primary team patient for endoscopy today cc time 40 min
--- NOTE | 2016-10-23 15:33 | PN ---
GI Progress Note Subjective: GI F/U FOR DR HAM NO CLIN CHANGES POOR HISTORIAN NO C/O NO BM TODAY NO FURTHER RECTAL BLEEDING NO PAIN - Objective Vital Signs: Vital Signs Temperature 98.6 F 10/23/16 14:00 Pulse Rate 85 10/23/16 14:00 Respiratory Rate 14 10/23/16 14:00 Blood Pressure 156/73 10/23/16 14:00 O2 Sat by Pulse Oximetry (%) 95 10/23/16 10:42 Constitutional: Calm Eyes: Yes: WNL (+BS/ NON TENDER) Labs: CBC, BMP 10/23/16 00:00 10/22/16 05:10 INR, PTT INR 1.08 (0.82-1.09) 10/22/16 05:10 Assessment/Plan 76M WITH GI BLEEDING HARD GASTRIC ULCER/ANGULARIS PER DR HAM S/P RX WITH [facility] CURRENTLY APPEARS STABLE P<100 BP STABLE HGB REL. STABLE--SUSPECT EQUILIBRATION ON PPI DRIP CANNOT R/O MALIGNANT ULCER--AWAIT PATHOLOGY DR HAM TO ARRANGE A RE-LOOK EGD IF BX NON-DIAGNOSTIC NEXT WEEK IF STABLE TOMORROW, START NIDHI HERNANDEZ MD
[2016-10-23 15:54] LABS: MCH 28.5 pg (25.7-33.7); MCHC 33.1 g/dl (32.0-35.9); MEAN PLT VOLUME 6.9 fl (7.5-11.1); PLATELET COUNT 245 K/MM3 (134-434); RDW 19.7 % (11.9-15.9); WHITE BLOOD COUNT 6.1 K/mm3 (4.0-10.0)
[2016-10-23 17:04] LABS: ANISOCYTOSIS 1+; HYPOCHROMIA 1+; MICROCYTOSIS 1+; PLATELET ESTIMATE ADEQUATE (NORMAL); POLYCHROMASIA FEW
--- NOTE | 2016-10-23 20:45 | PN ---
Progress Note (short form) - Note Progress Note: No abd pain No SOB O/E Vital Signs Period Temp Pulse Resp BP Sys/Albert Pulse Ox Last 24 Hr 98 F-99 F 80-97 14-22 117-161/55-81 95-96 Laboratory Results - last 24 hr 10/23/16 10/23/16 00:00 15:30 WBC 6.8 6.1 RBC 3.19 L 3.26 L Hgb 9.1 L D 9.3 L Hct 27.5 L 28.1 L MCV 86.2 86.0 MCHC 32.9 33.1 RDW 19.7 H 19.7 H Plt Count 257 245 MPV 7.3 L 6.9 L Neutrophils % 64.7 Lymphocytes % 24.8 Monocytes % 6.6 Eosinophils % 2.8 Basophils % 1.1 Platelet Estimate Adequate Platelet Comment No clumping noted Polychromasia Few Hypochromic-Microcytic 1+ Anisocytosis 1+ Microcytosis 1+ Current Medications Chlorhexidine Gluconate (Hibiclens For Decolonization -) 1 applic TP HS [facility] Last Admin: 10/22/16 22:00 Dose: 1 applic Fat Emulsion Intravenous (Intralipid -) 500 ml IV DAILY@2200 [facility] Last Admin: 10/23/16 02:46 Dose: 500 ml Pantoprazole Sodium 80 mg/ (Sodium Chloride) 100 mls @ 10 mls/hr IVPB Q10H [facility] PRN Reason: 8 MG/HR Last Admin: 10/23/16 15:02 Dose: 10 mls/hr Amino Acids (Clinimix -) 1,000 mls @ 84 mls/hr IV Q12H [facility] Last Admin: 10/23/16 08:30 Dose: 84 mls/hr Morphine Sulfate (Morphine Injection -) 2 mg IVPUSH Q4H PRN PRN Reason: PAIN Multivitamins/Minerals (Infuvite Adult -) 10 ml IV DAILY [facility] Last Admin: 10/23/16 15:01 Dose: Not Given Mupirocin (Bactroban Ointment (For Decolonization) -) 1 applic NS BID [facility] Stop: 10/26/16 09:59 Last Admin: 10/23/16 09:07 Dose: 1 applic Ondansetron HCl (Zofran Injection) 4 mg IVPB Q6H PRN PRN Reason: NAUSEA ssessment/Plan (1) Acute blood loss anemia Assessment/Plan: -secondary to GIB -s/p transfusion and doing OK, f/u CBC Code(s): D62 - ACUTE POSTHEMORRHAGIC ANEMIA (2) UGIB (upper gastrointestinal bleed) Assessment/Plan: -EGD noted, await pathoology Code(s): K92.2 - GASTROINTESTINAL HEMORRHAGE, UNSPECIFIED (3) CAD (coronary artery disease) Assessment/Plan: -stable -no anticoagulation or antiplatelet agents Code(s): I25.10 - ATHSCL HEART DISEASE OF [place] CORONARY ARTERY W/O ANG PCTRS (4) Dementia Assessment/Plan: -at baseline per family Code(s): F03.90 - UNSPECIFIED DEMENTIA WITHOUT BEHAVIORAL DISTURBANCE (5) Parkinson disease Assessment/Plan: -monitor Code(s): G20 - PARKINSON'S DISEASE (6) Leukocytosis Assessment/Plan: -resolved likely due to the GI bleed Code(s): D72.829 - ELEVATED WHITE BLOOD CELL COUNT, UNSPECIFIED
[2016-10-23] MEDS: CHLORHEXIDINE GLUCONATE 4% CLEANSER FOR DECOLONIZATION TP SCH (22:54)
[2016-10-24 06:39] LABS: MCH 31.5 pg (25.7-33.7); MCHC 36.8 g/dl (32.0-35.9); MEAN CELL VOLUME 85.7 fl (80-96); MEAN PLT VOLUME 7.4 fl (7.5-11.1); PLATELET COUNT 344 K/MM3 (134-434); RDW 20.3 % (11.9-15.9); WHITE BLOOD COUNT 6.4 K/mm3 (4.0-10.0)
[2016-10-24 06:41] LABS: CREATININE 0.4 mg/dL (0.7-1.3); MAGNESIUM 1.5 mg/dL (1.8-2.4); PHOSPHOROUS 2.1 mg/dL (2.5-4.9)
[2016-10-24] MEDS: AMINO ACIDS 4.25%/D5W 1,000 ML IV SCH ×3 (06:44→22:32)
[2016-10-24] MEDS: KCL 10 MEQ IVPB 100 ML IVPB SCH ×3 (09:56→12:00)
[2016-10-24] MEDS: MUPIROCIN 2% TOPICAL OINTMENT FOR DECOLONIZATION NS SCH ×2 (10:31→22:32)
[2016-10-24] MEDS: MULTIVIT INJ. ADULT COMBO WITH VIT K 1 COMBO 10 ML VIAL IV SCH (10:36)
[2016-10-24] MEDS: PANTOPRAZOLE SODIUM 80 MG in SODIUM CHLORIDE 100 ML IVPB SCH ×3 (11:00→20:00)
--- NOTE | 2016-10-24 11:10 | PN ---
Progress Note (short form) - Note Progress Note: seen and examined in the ICU EGD clipped ulcer no signs of bleeding Hgb stable Current Medications Chlorhexidine Gluconate (Hibiclens For Decolonization -) 1 applic TP HS [facility] Last Admin: 10/23/16 22:54 Dose: 1 applic Fat Emulsion Intravenous (Intralipid -) 500 ml IV DAILY@2200 [facility] Last Admin: 10/23/16 22:55 Dose: 500 ml Pantoprazole Sodium 80 mg/ (Sodium Chloride) 100 mls @ 10 mls/hr IVPB Q10H [facility] PRN Reason: 8 MG/HR Last Admin: 10/24/16 11:00 Dose: 10 mls/hr Amino Acids (Clinimix -) 1,000 mls @ 84 mls/hr IV Q12H [facility] Last Admin: 10/24/16 10:36 Dose: 84 mls/hr Potassium Chloride (Potassium Chloride 10 Meq Premix Ivpb -) 100 mls @ 100 mls/ hr IVPB Q60M [facility] Stop: 10/24/16 12:59 Last Admin: 10/24/16 10:59 Dose: 100 mls/hr Morphine Sulfate (Morphine Injection -) 2 mg IVPUSH Q4H PRN PRN Reason: PAIN Multivitamins/Minerals (Infuvite Adult -) 10 ml IV DAILY [facility] Last Admin: 10/24/16 10:36 Dose: 10 ml Mupirocin (Bactroban Ointment (For Decolonization) -) 1 applic NS BID [facility] Stop: 10/26/16 09:59 Last Admin: 10/24/16 10:31 Dose: 1 applic Ondansetron HCl (Zofran Injection) 4 mg IVPB Q6H PRN PRN Reason: NAUSEA Vital Signs Period Temp Pulse Resp BP Sys/Albert Pulse Ox Last 24 Hr 98 F-98.9 F 80-97 14-22 118-156/58-85 97-98 Intake & Output 10/21/16 10/22/16 10/23/16 10/24/16 23:59 23:59 23:59 23:59 Intake Total 2345 2470 2486 1158 Output Total 1100 1100 3800 Balance 1245 1370 -1314 1158 Weight 69.5 kg 69.003 kg 69.4 kg 69.9 kg General: awake, alert and cooperative w/o dostress CV: irr, irr Pulm: CTA Abd: SNTND Ext: WWP Neuro: grossly intact CBCD WBC 6.4 K/mm3 (4.0-10.0) 10/24/16 05:15 RBC 3.97 M/mm3 (4.00-5.60) L D 10/24/16 05:15 Hgb 12.5 GM/dL (11.7-16.9) D 10/24/16 05:15 Hct 34.0 % (35.4-49) L D 10/24/16 05:15 MCV 85.7 fl (80-96) 10/24/16 05:15 MCHC 36.8 g/dl (32.0-35.9) H 10/24/16 05:15 RDW 20.3 % (11.9-15.9) H 10/24/16 05:15 Plt Count 344 K/MM3 (134-434) D 10/24/16 05:15 MPV 7.4 fl (7.5-11.1) L 10/24/16 05:15 CMP Sodium 138 mmol/L (136-145) 10/24/16 05:15 Potassium 3.0 mmol/L (3.5-5.1) L 10/24/16 05:15 Chloride 98 mmol/L (98-107) D 10/24/16 05:15 Carbon Dioxide 27 mmol/L (21-32) 10/24/16 05:15 Anion Gap 13 (8-16) 10/24/16 05:15 BUN 10 mg/dL (7-18) D 10/24/16 05:15 Creatinine 0.4 mg/dL (0.7-1.3) L 10/24/16 05:15 Creat Clearance w eGFR > 60 (>60) 10/22/16 05:10 Random Glucose 165 mg/dL (74-106) H D 10/24/16 05:15 Calcium 8.0 mg/dL (8.5-10.1) L 10/24/16 05:15 Total Bilirubin 0.7 mg/dL (0.2-1.0) 10/22/16 05:10 AST 17 U/L (15-37) 10/22/16 05:10 ALT 16 U/L (12-78) 10/22/16 05:10 Alkaline Phosphatase 74 U/L (45-117) 10/22/16 05:10 Total Protein 5.6 g/dl (6.4-8.2) L 10/22/16 05:10 Albumin 2.4 g/dl (3.4-5.0) L 10/22/16 05:10 CARDIAC ENZYMES Creatine Kinase 47 IU/L (39-308) 10/21/16 00:25 Troponin I < 0.02 ng/ml (0.00-0.05) 10/21/16 00:25 ASSESSMENT AND PLAN: GI Bleed Acute Blood Loss Anemia s/p PRBC transfusions Lactic Acidosis from above HTN CAD s/p CABG Parkinsons Disease Dementia -NPO, plan for repeat scope on 5/8 AM -PPI -CBC [id number] -GI follow up -DVT prophylaxis with venodynes stable for floor transfer Catarina POWELL Pulm/CCM CCT: 35
--- NOTE | 2016-10-24 15:06 | PN ---
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
[2016-10-24] MEDS ORDERED: risperiDONE 0.25 MG TABLET (FP) PO PRN (16:26)
--- NOTE | 2016-10-24 16:26 | PN ---
Progress Note (short form) - Note Progress Note: No pain No SOB O/E Vital Signs Period Temp Pulse Resp BP Sys/Albert Pulse Ox Last 24 Hr 98 F-98.9 F 80-97 16-22 118-150/58-85 97-98 Very confused Not pale Not icteric Heart regular Lungs clear Abd soft Ext no edema Current Medications Chlorhexidine Gluconate (Hibiclens For Decolonization -) 1 applic TP HS [facility] Last Admin: 10/23/16 22:54 Dose: 1 applic Fat Emulsion Intravenous (Intralipid -) 500 ml IV DAILY@2200 [facility] Last Admin: 10/23/16 22:55 Dose: 500 ml Pantoprazole Sodium 80 mg/ (Sodium Chloride) 100 mls @ 10 mls/hr IVPB Q10H [facility] PRN Reason: 8 MG/HR Last Admin: 10/24/16 11:16 Dose: 10 mls/hr Amino Acids (Clinimix -) 1,000 mls @ 84 mls/hr IV Q12H [facility] Last Admin: 10/24/16 10:36 Dose: 84 mls/hr Morphine Sulfate (Morphine Injection -) 2 mg IVPUSH Q4H PRN PRN Reason: PAIN Multivitamins/Minerals (Infuvite Adult -) 10 ml IV DAILY [facility] Last Admin: 10/24/16 10:36 Dose: 10 ml Mupirocin (Bactroban Ointment (For Decolonization) -) 1 applic NS BID [facility] Stop: 10/26/16 09:59 Last Admin: 10/24/16 10:31 Dose: 1 applic Ondansetron HCl (Zofran Injection) 4 mg IVPB Q6H PRN PRN Reason: NAUSEA Laboratory Results - last 24 hr 10/21/16 10/23/16 10/24/16 00:35 15:30 05:15 WBC 6.4 RBC 3.97 L D Hgb 12.5 D Hct 34.0 L D MCV 85.7 MCHC 36.8 H RDW 20.3 H Plt Count 344 D MPV 7.4 L Platelet Estimate Adequate Platelet Comment No clumping noted Polychromasia Few Hypochromic-Microcytic 1+ Anisocytosis 1+ Microcytosis 1+ Sodium Potassium Chloride Carbon Dioxide Anion Gap BUN Creatinine Random Glucose Calcium Phosphorus Magnesium Blood Type A POSITIVE Crossmatch See Detail 10/24/16 05:15 WBC RBC Hgb Hct MCV MCHC RDW Plt Count MPV Platelet Estimate Platelet Comment Polychromasia Hypochromic-Microcytic Anisocytosis Microcytosis Sodium 138 Potassium 3.0 L Chloride 98 D Carbon Dioxide 27 Anion Gap 13 BUN 10 D Creatinine 0.4 L Random Glucose 165 H D Calcium 8.0 L Phosphorus 2.1 L D Magnesium 1.5 L Blood Type Crossmatch ssessment/Plan (1) Acute blood loss anemia Assessment/Plan: -secondary to GIB -s/p transfusion and doing OK, f/u CBC Code(s): D62 - ACUTE POSTHEMORRHAGIC ANEMIA (2) UGIB (upper gastrointestinal bleed) Assessment/Plan: -EGD noted, await pathoology Code(s): K92.2 - GASTROINTESTINAL HEMORRHAGE, UNSPECIFIED (3) CAD (coronary artery disease) Assessment/Plan: -stable -no anticoagulation or antiplatelet agents Code(s): I25.10 - ATHSCL HEART DISEASE OF [place] CORONARY ARTERY W/O ANG PCTRS (4) Dementia Assessment/Plan: Code(s): F03.90 - UNSPECIFIED DEMENTIA WITHOUT BEHAVIORAL DISTURBANCE (5) Parkinson disease Assessment/Plan: -monitor Code(s): G20 - PARKINSON'S DISEASE (6) Leukocytosis Assessment/Plan: -resolved likely due to the GI bleed Code(s): D72.829 - ELEVATED WHITE BLOOD CELL COUNT, UNSPECIFIED 7. Change in MS Is likely due to dementia and the recent change in place prn Respirdal
[2016-10-24] MEDS: FAT EMULSIONS 20% 500 ML PREMIX INFUS.BAG IV SCH (22:31)
[2016-10-24] MEDS: CHLORHEXIDINE GLUCONATE 4% CLEANSER FOR DECOLONIZATION TP SCH (22:32)
[2016-10-25] MEDS: PANTOPRAZOLE SODIUM 80 MG in SODIUM CHLORIDE 100 ML IVPB SCH ×3 (05:00→14:22)
[2016-10-25] MEDS: AMINO ACIDS 4.25%/D5W 1,000 ML IV SCH ×3 (06:03→17:39)
[2016-10-25 06:57] LABS: MCH 32.6 pg (25.7-33.7); MCHC 37.8 g/dl (32.0-35.9); MEAN CELL VOLUME 86.4 fl (80-96); MEAN PLT VOLUME 7.4 fl (7.5-11.1); PLATELET COUNT 308 K/MM3 (134-434); RDW 19.8 % (11.9-15.9); WHITE BLOOD COUNT 6.5 K/mm3 (4.0-10.0)
[2016-10-25 07:08] LABS: INR 1.16 (0.82-1.09); PROTHROMBIN TIME (PATIENT) 12.8 SEC (9.98-11.88)
[2016-10-25 07:10] LABS: ACTIVATED PTT 32.9 SECONDS (26.9-34.4); MAGNESIUM 1.4 mg/dL (1.8-2.4)
[2016-10-25 07:12] LABS: COCKROFT - GAULT 156.01; CREATININE 0.4 mg/dL (0.7-1.3)
[2016-10-25 07:28] LABS: CALCIUM 7.3 mg/dL (8.5-10.1)
--- NOTE | 2016-10-25 09:00 | PN ---
Physical Exam: SUBJECTIVE: Patient seen and examined. resting comfortably in bed. family at bedside, follows commands in Serbian. OBJECTIVE: Vital Signs Period Temp Pulse Resp BP Sys/Albert Pulse Ox Last 24 Hr 97.3 F-98.2 F 77-108 13-19 113-141/60-93 98 GENERAL: The patient is awake, alert, in no acute distress. EYES: PERRL, extraocular movements intact, sclera anicteric, conjunctiva clear. No ptosis. ENT: oropharynx clear without exudates, poor dentition, dry mucous membranes. NECK: Trachea midline, full range of motion, supple. LUNGS: Breath sounds equal, clear to auscultation bilaterally, no wheezes, no crackles, no accessory muscle use. HEART: Regular rate and rhythm, S1, S2 without murmur, rub or gallop. ABDOMEN: Soft, nontender, nondistended, normoactive bowel sounds, no guarding EXTREMITIES: 2+ pulses, warm, well-perfused, no edema. NEUROLOGICAL: dementia, calm coopertive Laboratory Results - last 24 hr 10/25/16 10/25/16 10/25/16 05:30 05:30 05:30 WBC 6.5 RBC 3.64 L Hgb 11.9 Hct 31.5 L MCV 86.4 MCHC 37.8 H RDW 19.8 H Plt Count 308 MPV 7.4 L INR 1.16 H PTT (Actin FS) 32.9 Sodium 138 Potassium 3.4 L Chloride 101 Carbon Dioxide 31 Anion Gap 6 L BUN 11 Creatinine 0.4 L Random Glucose 199 H D Calcium 7.3 L Phosphorus 2.0 L Magnesium 1.4 L Blood Type Antibody Screen 10/25/16 05:55 WBC RBC Hgb Hct MCV MCHC RDW Plt Count MPV INR PTT (Actin FS) Sodium Potassium Chloride Carbon Dioxide Anion Gap BUN Creatinine Random Glucose Calcium Phosphorus Magnesium Blood Type A POSITIVE Antibody Screen Negative Active Medications Generic Name Dose Route Start Last Admin Trade Name Freq PRN Reason Stop Dose Admin Chlorhexidine Gluconate 1 applic 10/22/16 22:00 10/24/16 22:32 Hibiclens For Decolonization - TP 1 applic HS JOSE Administration Fat Emulsion Intravenous 500 ml 10/22/16 22:00 10/24/16 22:31 Intralipid - IV 500 ml DAILY@2200 JOSE Administration Pantoprazole Sodium 80 mg/ 100 mls @ 10 mls/hr 10/22/16 06:15 10/25/16 05:00 Sodium Chloride IVPB Not Given Q10H JOSE 8 MG/HR Amino Acids 1,000 mls @ 84 mls/hr 10/22/16 18:30 10/25/16 06:03 Clinimix - IV Not Given Q12H JOSE Multivitamins/Minerals 10 ml 10/22/16 18:30 10/24/16 10:36 Infuvite Adult - IV 10 ml DAILY [facility] Administration Mupirocin 1 applic 10/22/16 10:00 10/24/16 22:32 Bactroban Ointment (For Decolonization) - NS 10/26/16 09:59 1 applic BID [facility] Administration Ondansetron HCl 4 mg 10/21/16 23:05 Zofran Injection IVPB Q6H PRN NAUSEA Risperidone 0.25 mg 10/24/16 16:26 Risperdal - PO TID PRN AGITATION ASSESSMENT/PLAN: 76 yr old man with dementia requiring total care, Parkinson's, CAD, HTN, HLD, brought in from [facility] for hemetemesis. 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 carlson NPO, zofran 4mf IVPB q6hr prn for nausea/vomiting Clinimix + intralipids IVPB daily due to prolong NPO status replete electrolytes IV, Mag sulf 1g, K+ rider Neurological Risperidone 0.25mg TID prn for agitation mental status baseline as per family Cardiovascular CAD - hold antiplats and anticoagulation due to acute bleed ID pt afebrile, leucocytosis trended down, bld urine cx negative, monitor off abx Consult Dr. Xander Browning; NPO for procedure tomorrow DVT; scd's Code status: DNR/DNI Dispo hemorrhage stable, can be monitored on Med-Surg floor Visit type - Emergency Visit Emergency Visit: No - New Patient This patient is new to me today: No - Critical Care Critical Care patient: Yes Total Critical Care Time (in minutes): 39 Critical Care Statement: The care of this patient involved high complexity decision making to prevent further life threatening deterioration of the patient 's condition and/or to evalute & treat vital organ system(s) failure or risk of failure.
--- NOTE | 2016-10-25 09:08 | EKG ---
Test Reason : Blood Pressure : / mmHG Vent. Rate : 090 BPM Atrial Rate : 127 BPM P-R Int : 000 ms QRS Dur : 098 ms QT Int : 398 ms P-R-T Axes : 000 036 044 degrees QTc Int : 486 ms ATRIAL FIBRILLATION WITH PREMATURE VENTRICULAR OR ABERRANTLY CONDUCTED COMPLEXES CANNOT RULE OUT ANTERIOR INFARCT (CITED ON OR BEFORE 21-OCT-2016) ABNORMAL ECG WHEN COMPARED WITH ECG OF 21-OCT-2016 00:54, ATRIAL FIBRILLATION HAS REPLACED SINUS RHYTHM Confirmed by TRIPP OLIVERA MD ([id number]) on 10/25/2016 9:07:37 AM Referred By: Confirmed By:TRIPP OLIVERA MD
[2016-10-25] MEDS: MUPIROCIN 2% TOPICAL OINTMENT FOR DECOLONIZATION NS SCH ×2 (10:27→21:31)
--- NOTE | 2016-10-25 10:30 | PN ---
Progress Note, Physician Chief Complaint: Mr Mireles says he feels fine - Current Medication List Current Medications: Active Medications Chlorhexidine Gluconate (Hibiclens For Decolonization -) 1 applic TP HS [facility] Last Admin: 10/24/16 22:32 Dose: 1 applic Fat Emulsion Intravenous (Intralipid -) 500 ml IV DAILY@2200 [facility] Last Admin: 10/24/16 22:31 Dose: 500 ml Pantoprazole Sodium 80 mg/ (Sodium Chloride) 100 mls @ 10 mls/hr IVPB Q10H [facility] PRN Reason: 8 MG/HR Last Admin: 10/25/16 10:26 Dose: 10 mls/hr Amino Acids (Clinimix -) 1,000 mls @ 84 mls/hr IV Q12H [facility] Last Admin: 10/25/16 06:03 Dose: Not Given Multivitamins/Minerals (Infuvite Adult -) 10 ml IV DAILY [facility] Last Admin: 10/24/16 10:36 Dose: 10 ml Mupirocin (Bactroban Ointment (For Decolonization) -) 1 applic NS BID [facility] Stop: 10/26/16 09:59 Last Admin: 10/24/16 22:32 Dose: 1 applic Ondansetron HCl (Zofran Injection) 4 mg IVPB Q6H PRN PRN Reason: NAUSEA Risperidone (Risperdal -) 0.25 mg PO TID PRN PRN Reason: AGITATION - Objective Vital Signs: Vital Signs Temperature 97.3 F L 10/25/16 08:00 Pulse Rate 83 10/25/16 10:20 Respiratory Rate 14 10/25/16 08:56 Blood Pressure 118/71 10/25/16 08:00 O2 Sat by Pulse Oximetry (%) 97 10/25/16 10:20 Constitutional: Yes: Well Nourished, No Distress, Calm Cardiovascular: Yes: Regular Rate and Rhythm. No: Gallop, Murmur, Rub Respiratory: Yes: Regular, CTA Bilaterally. No: Rales, Rhonchi, Wheezes Gastrointestinal: Yes: Normal Bowel Sounds, Soft. No: Distention, Tenderness Extremities: Yes: WNL Edema: No Labs: CBC, BMP 10/25/16 05:30 10/25/16 05:30 INR, PTT INR 1.16 (0.82-1.09) H 10/25/16 05:30 Problem List - Problems (1) Acute blood loss anemia Code(s): D62 - ACUTE POSTHEMORRHAGIC ANEMIA (2) UGIB (upper gastrointestinal bleed) Code(s): K92.2 - GASTROINTESTINAL HEMORRHAGE, UNSPECIFIED (3) CAD (coronary artery disease) Code(s): I25.10 - ATHSCL HEART DISEASE OF [place] CORONARY ARTERY W/O ANG PCTRS (4) Dementia Code(s): F03.90 - UNSPECIFIED DEMENTIA WITHOUT BEHAVIORAL DISTURBANCE (5) Parkinson disease Code(s): G20 - PARKINSON'S DISEASE (6) Leukocytosis Code(s): D72.829 - ELEVATED WHITE BLOOD CELL COUNT, UNSPECIFIED Assessment/Plan (1) Acute blood loss anemia Assessment/Plan: -secondary to GIB -s/p transfusion with good result -monitor -stab;e Code(s): D62 - ACUTE POSTHEMORRHAGIC ANEMIA (2) UGIB (upper gastrointestinal bleed) Assessment/Plan: -GI consulted and following -EGD report and weekend notes reviewed -ulcer found, high risk of bleeding so continue ICU monitoring -planning for EGD this week per GI Code(s): K92.2 - GASTROINTESTINAL HEMORRHAGE, UNSPECIFIED (3) CAD (coronary artery disease) Assessment/Plan: -no complaints of chest pain -monitor -no anticoagulation or antiplatelet agents Code(s): I25.10 - ATHSCL HEART DISEASE OF [place] CORONARY ARTERY W/O ANG PCTRS (4) Dementia Assessment/Plan: -at baseline per family Code(s): F03.90 - UNSPECIFIED DEMENTIA WITHOUT BEHAVIORAL DISTURBANCE (5) Parkinson disease Assessment/Plan: -monitor Code(s): G20 - PARKINSON'S DISEASE (6) Leukocytosis Assessment/Plan: -resolved -antibiotics discontinued -cultures negative Code(s): D72.829 - ELEVATED WHITE BLOOD CELL COUNT, UNSPECIFIED 32 minutes critical care time spent in care of this patient
[2016-10-25] MEDS: MULTIVIT INJ. ADULT COMBO WITH VIT K 1 COMBO 10 ML VIAL IV SCH (11:45)
[2016-10-25] MEDS ORDERED: MAGNESIUM SULF 50% (8.12 MEQ/2 ML-1 GM VIAL) IVPB ONE (15:21)
--- NOTE | 2016-10-25 15:29 | PN ---
Teaching Attending Note Name of Resident: Simon Roldan ATTENDING PHYSICIAN STATEMENT I saw and evaluated the patient. I reviewed the resident's note and discussed the case with the resident. I agree with the resident's findings and plan as documented. SUBJECTIVE: Patient seen and examined in the ICU. Awake and responsive. Mildly confused. Denies CP or SOB. H&H stable. No occult bleeding noted. Intake & Output 10/22/16 10/23/16 10/24/16 10/25/16 23:59 23:59 23:59 23:59 Intake Total 2470 2486 3012 1202 Output Total 1100 3800 950 1200 Balance 1370 -1314 2062 2 Weight 152 lb 2 oz 153 lb 0.013 oz 154 lb 1.65 oz 152 lb 6.4 oz Last Vital Signs Temp Pulse Resp BP Pulse Ox 97.3 F L 77 17 127/74 97 10/25/16 08:00 10/25/16 14:00 10/25/16 14:00 10/25/16 14:00 10/25/16 10:20 Active Medications Chlorhexidine Gluconate (Hibiclens For Decolonization -) 1 applic TP HS [facility] Last Admin: 10/24/16 22:32 Dose: 1 applic Fat Emulsion Intravenous (Intralipid -) 500 ml IV DAILY@2200 [facility] Last Admin: 10/24/16 22:31 Dose: 500 ml Pantoprazole Sodium 80 mg/ (Sodium Chloride) 100 mls @ 10 mls/hr IVPB Q10H [facility] PRN Reason: 8 MG/HR Last Admin: 10/25/16 14:22 Dose: Not Given Amino Acids (Clinimix -) 1,000 mls @ 84 mls/hr IV Q12H [facility] Last Admin: 10/25/16 11:46 Dose: 84 mls/hr Potassium Chloride (Potassium Chloride 10 Meq Premix Ivpb -) 100 mls @ 100 mls/ hr IVPB Q60M [facility] Stop: 10/25/16 16:29 Magnesium Sulfate (Magnesium Sulfate) 1 gm IVPB ONCE ONE Stop: 10/25/16 15:22 Multivitamins/Minerals (Infuvite Adult -) 10 ml IV DAILY [facility] Last Admin: 10/25/16 11:45 Dose: 10 ml Mupirocin (Bactroban Ointment (For Decolonization) -) 1 applic NS BID [facility] Stop: 10/26/16 09:59 Last Admin: 10/25/16 10:27 Dose: 1 applic Ondansetron HCl (Zofran Injection) 4 mg IVPB Q6H PRN PRN Reason: NAUSEA Risperidone (Risperdal -) 0.25 mg PO TID PRN PRN Reason: AGITATION General: awake, alert responsive CV: S1S2, irr Pulm: diminished at the bases Abd: Soft, NT, ND, (+) BS Ext: WWP Neuro: grossly intact Laboratory Results - last 24 hr 10/21/16 10/25/16 10/25/16 00:35 05:30 05:30 WBC 6.5 RBC 3.64 L Hgb 11.9 Hct 31.5 L MCV 86.4 MCHC 37.8 H RDW 19.8 H Plt Count 308 MPV 7.4 L INR 1.16 H PTT (Actin FS) 32.9 Sodium Potassium Chloride Carbon Dioxide Anion Gap BUN Creatinine Random Glucose Calcium Phosphorus Magnesium Blood Type A POSITIVE Antibody Screen Crossmatch See Detail 10/25/16 10/25/16 05:30 05:55 WBC RBC Hgb Hct MCV MCHC RDW Plt Count MPV INR PTT (Actin FS) Sodium 138 Potassium 3.4 L Chloride 101 Carbon Dioxide 31 Anion Gap 6 L BUN 11 Creatinine 0.4 L Random Glucose 199 H D Calcium 7.3 L Phosphorus 2.0 L Magnesium 1.4 L Blood Type A POSITIVE Antibody Screen Negative Crossmatch ASSESSMENT AND PLAN: GI Bleed Acute Blood Loss Anemia s/p PRBC transfusions Lactic Acidosis from above HTN CAD s/p CABG Parkinsons Disease Dementia Will D/W GI about whether the patient requires repeat endoscopy at this point O2 as needed PPI Follow CBC Normal transfusion thresholds Has been NPO -> clinimix Dr Adams critical care time spent in reviewing chart, evaluating patient and formulating plan 38 min
[2016-10-25] MEDS ORDERED: KCL 10 MEQ IVPB 100 ML IVPB SCH (15:30)
--- NOTE | 2016-10-25 20:14 | PN ---
Progress Note, Physician History of Present Illness: says he is doing well no complaints - Current Medication List Current Medications: Active Medications Chlorhexidine Gluconate (Hibiclens For Decolonization -) 1 applic TP HS [facility] Last Admin: 10/24/16 22:32 Dose: 1 applic Fat Emulsion Intravenous (Intralipid -) 500 ml IV DAILY@2200 [facility] Last Admin: 10/24/16 22:31 Dose: 500 ml Pantoprazole Sodium 80 mg/ (Sodium Chloride) 100 mls @ 10 mls/hr IVPB Q10H [facility] PRN Reason: 8 MG/HR Last Admin: 10/25/16 14:22 Dose: Not Given Amino Acids (Clinimix -) 1,000 mls @ 84 mls/hr IV Q12H [facility] Last Admin: 10/25/16 17:39 Dose: Not Given Multivitamins/Minerals (Infuvite Adult -) 10 ml IV DAILY [facility] Last Admin: 10/25/16 11:45 Dose: 10 ml Mupirocin (Bactroban Ointment (For Decolonization) -) 1 applic NS BID [facility] Stop: 10/26/16 09:59 Last Admin: 10/25/16 10:27 Dose: 1 applic Ondansetron HCl (Zofran Injection) 4 mg IVPB Q6H PRN PRN Reason: NAUSEA Risperidone (Risperdal -) 0.25 mg PO TID PRN PRN Reason: AGITATION - Objective Vital Signs: Vital Signs Temperature 98 F 10/25/16 16:00 Pulse Rate 79 10/25/16 20:00 Respiratory Rate 18 10/25/16 18:00 Blood Pressure 95/70 10/25/16 20:00 O2 Sat by Pulse Oximetry (%) 97 10/25/16 10:20 Constitutional: Yes: No Distress, Calm Neck: Yes: Supple Cardiovascular: Yes: S1, S2 Respiratory: Yes: Regular, CTA Bilaterally Gastrointestinal: Yes: Normal Bowel Sounds, Soft Musculoskeletal: Yes: WNL Extremities: Yes: WNL Neurological: Yes: Alert, Oriented Psychiatric: Yes: Alert, Oriented Labs: CBC, BMP 10/25/16 05:30 10/25/16 05:30 INR, PTT INR 1.16 (0.82-1.09) H 10/25/16 05:30 Assessment/Plan Problem List - Problems (1) Acute blood loss anemia Code(s): D62 - ACUTE POSTHEMORRHAGIC ANEMIA (2) UGIB (upper gastrointestinal bleed) Code(s): K92.2 - GASTROINTESTINAL HEMORRHAGE, UNSPECIFIED (3) CAD (coronary artery disease) Code(s): I25.10 - ATHSCL HEART DISEASE OF [place] CORONARY ARTERY W/O ANG PCTRS (4) Dementia Code(s): F03.90 - UNSPECIFIED DEMENTIA WITHOUT BEHAVIORAL DISTURBANCE (5) Parkinson disease Code(s): G20 - PARKINSON'S DISEASE (6) Leukocytosis Code(s): D72.829 - ELEVATED WHITE BLOOD CELL COUNT, UNSPECIFIED plan continue to monitor patient patient for egd tomorrow wbc now normal no more bleeding patient stabilizing rest as per icu and gi cc time 40 min
[2016-10-25] MEDS ORDERED: PT OWN MED DRAWER 7, Y5N ONE ×2 (20:23→20:29)
[2016-10-25] MEDS: FAT EMULSIONS 20% 500 ML PREMIX INFUS.BAG IV SCH (21:31)
[2016-10-25] MEDS: CHLORHEXIDINE GLUCONATE 4% CLEANSER FOR DECOLONIZATION TP SCH (21:31)
[2016-10-26] MEDS: PANTOPRAZOLE SODIUM 80 MG in SODIUM CHLORIDE 100 ML IVPB SCH ×2 (02:33→06:02)
[2016-10-26] MEDS: AMINO ACIDS 4.25%/D5W 1,000 ML IV SCH ×3 (04:01→18:30)
[2016-10-26] MEDS ORDERED: ONDANSETRON 4 MG/2 ML VIAL IVPB PRN (07:56)
[2016-10-26] MEDS ORDERED: risperiDONE 0.25 MG TABLET (FP) PO PRN (07:56)
[2016-10-26] MEDS ORDERED: MUPIROCIN 2% TOPICAL OINTMENT FOR DECOLONIZATION NS SCH (10:00)
[2016-10-26] MEDS ORDERED: PANTOPRAZOLE SODIUM 80 MG in SODIUM CHLORIDE 100 ML IVPB SCH (10:15)
[2016-10-26] MEDS: MULTIVIT INJ. ADULT COMBO WITH VIT K 1 COMBO 10 ML VIAL IV SCH (11:48)
--- NOTE | 2016-10-26 12:49 | PN ---
Progress Note, Physician History of Present Illness: says he is doing well no complaints patient post endoscopy daughter in room had discussion wiht her - Current Medication List Current Medications: Active Medications Fat Emulsion Intravenous (Intralipid -) 500 ml IV DAILY@2200 [facility] Amino Acids (Clinimix -) 1,000 mls @ 84 mls/hr IV Q12H [facility] Last Admin: 10/26/16 11:51 Dose: 84 mls/hr Pantoprazole Sodium 80 mg/ (Sodium Chloride) 100 mls @ 10 mls/hr IVPB Q10H [facility] PRN Reason: 8 MG/HR Last Admin: 10/26/16 10:15 Dose: Not Given Multivitamins/Minerals (Infuvite Adult -) 10 ml IV DAILY [facility] Last Admin: 10/26/16 11:48 Dose: 10 ml Ondansetron HCl (Zofran Injection) 4 mg IVPB Q6H PRN PRN Reason: NAUSEA Risperidone (Risperdal -) 0.25 mg PO TID PRN PRN Reason: AGITATION - Objective Vital Signs: Vital Signs Temperature 98.1 F 10/26/16 10:00 Pulse Rate 84 10/26/16 10:00 Respiratory Rate 18 10/26/16 10:00 Blood Pressure 143/69 10/26/16 10:00 O2 Sat by Pulse Oximetry (%) 97 10/25/16 10:20 Constitutional: Yes: No Distress, Calm HENT: Yes: Atraumatic Neck: Yes: Supple, Trachea Midline Cardiovascular: Yes: S1, S2 Respiratory: Yes: Regular, CTA Bilaterally Gastrointestinal: Yes: Normal Bowel Sounds, Soft Musculoskeletal: Yes: WNL Extremities: Yes: WNL Neurological: Yes: Alert, Oriented Psychiatric: Yes: Alert, Oriented Labs: CBC, BMP 10/25/16 05:30 10/25/16 05:30 INR, PTT INR 1.16 (0.82-1.09) H 10/25/16 05:30 Assessment/Plan Problem List - Problems (1) Acute blood loss anemia Code(s): D62 - ACUTE POSTHEMORRHAGIC ANEMIA (2) UGIB (upper gastrointestinal bleed) Code(s): K92.2 - GASTROINTESTINAL HEMORRHAGE, UNSPECIFIED (3) CAD (coronary artery disease) Code(s): I25.10 - ATHSCL HEART DISEASE OF [place] CORONARY ARTERY W/O ANG PCTRS (4) Dementia Code(s): F03.90 - UNSPECIFIED DEMENTIA WITHOUT BEHAVIORAL DISTURBANCE (5) Parkinson disease Code(s): G20 - PARKINSON'S DISEASE (6) Leukocytosis Code(s): D72.829 - ELEVATED WHITE BLOOD CELL COUNT, UNSPECIFIED plan continue to monitor patient await for biopsy reports rest as per primary
--- NOTE | 2016-10-26 14:14 | PN ---
Progress Note, Physician Chief Complaint: Mr Mireles is without complaint. Says he feels good. - Current Medication List Current Medications: Active Medications Fat Emulsion Intravenous (Intralipid -) 500 ml IV DAILY@2200 [facility] Amino Acids (Clinimix -) 1,000 mls @ 84 mls/hr IV Q12H [facility] Last Admin: 10/26/16 11:51 Dose: 84 mls/hr Pantoprazole Sodium 80 mg/ (Sodium Chloride) 100 mls @ 10 mls/hr IVPB Q10H [facility] PRN Reason: 8 MG/HR Last Admin: 10/26/16 10:15 Dose: Not Given Multivitamins/Minerals (Infuvite Adult -) 10 ml IV DAILY [facility] Last Admin: 10/26/16 11:48 Dose: 10 ml Ondansetron HCl (Zofran Injection) 4 mg IVPB Q6H PRN PRN Reason: NAUSEA Risperidone (Risperdal -) 0.25 mg PO TID PRN PRN Reason: AGITATION - Objective Vital Signs: Vital Signs Temperature 98.1 F 10/26/16 10:00 Pulse Rate 84 10/26/16 10:00 Respiratory Rate 18 10/26/16 10:00 Blood Pressure 143/69 10/26/16 10:00 O2 Sat by Pulse Oximetry (%) 97 10/25/16 10:20 Constitutional: Yes: Well Nourished, No Distress, Calm Cardiovascular: Yes: Regular Rate and Rhythm. No: Gallop, Murmur, Rub Respiratory: Yes: Regular, CTA Bilaterally. No: Rales, Rhonchi, Wheezes Gastrointestinal: Yes: Normal Bowel Sounds, Soft. No: Distention, Tenderness Extremities: Yes: WNL Edema: No Labs: CBC, BMP 10/25/16 05:30 10/25/16 05:30 INR, PTT INR 1.16 (0.82-1.09) H 10/25/16 05:30 Problem List - Problems (1) Acute blood loss anemia Code(s): D62 - ACUTE POSTHEMORRHAGIC ANEMIA (2) UGIB (upper gastrointestinal bleed) Code(s): K92.2 - GASTROINTESTINAL HEMORRHAGE, UNSPECIFIED (3) CAD (coronary artery disease) Code(s): I25.10 - ATHSCL HEART DISEASE OF [place] CORONARY ARTERY W/O ANG PCTRS (4) Dementia Code(s): F03.90 - UNSPECIFIED DEMENTIA WITHOUT BEHAVIORAL DISTURBANCE (5) Parkinson disease Code(s): G20 - PARKINSON'S DISEASE (6) Leukocytosis Code(s): D72.829 - ELEVATED WHITE BLOOD CELL COUNT, UNSPECIFIED Assessment/Plan (1) Acute blood loss anemia Assessment/Plan: -secondary to GIB -s/p transfusion with good result -monitor -currently stable Code(s): D62 - ACUTE POSTHEMORRHAGIC ANEMIA (2) UGIB (upper gastrointestinal bleed) Assessment/Plan: -GI consulted and following -s/p second EGD -artery cauterized -advance diet tonight Code(s): K92.2 - GASTROINTESTINAL HEMORRHAGE, UNSPECIFIED (3) CAD (coronary artery disease) Assessment/Plan: -no complaints of chest pain -monitor -no anticoagulation or antiplatelet agents Code(s): I25.10 - ATHSCL HEART DISEASE OF [place] CORONARY ARTERY W/O ANG PCTRS (4) Dementia Assessment/Plan: -at baseline per family Code(s): F03.90 - UNSPECIFIED DEMENTIA WITHOUT BEHAVIORAL DISTURBANCE (5) Parkinson disease Assessment/Plan: -monitor Code(s): G20 - PARKINSON'S DISEASE (6) Leukocytosis Assessment/Plan: -resolved -antibiotics discontinued -cultures negative Code(s): D72.829 - ELEVATED WHITE BLOOD CELL COUNT, UNSPECIFIED
[2016-10-26] MEDS ORDERED: PROPOFOL 20 ML ONE (15:20)
[2016-10-26] MEDS: SUCRALFATE 1 GM/10 ML UNIT DOSE CUPS PO SCH ×2 (18:24→22:12)
[2016-10-26] MEDS ORDERED: PT OWN MED DRAWER 7, Y5N ONE (21:43)
[2016-10-26] MEDS ORDERED: CHLORHEXIDINE GLUCONATE 4% CLEANSER FOR DECOLONIZATION TP SCH (22:00)
[2016-10-26] MEDS: PANTOPRAZOLE SOD 40 MG SUSPENSION PACKET PO SCH (22:12)
[2016-10-26] MEDS: FAT EMULSIONS 20% 500 ML PREMIX INFUS.BAG IV SCH (22:18)
[2016-10-27] MEDS: AMINO ACIDS 4.25%/D5W 1,000 ML IV SCH ×4 (02:01→18:30)
[2016-10-27 09:22] LABS: ANION GAP 8 (8-16); CO2 28 mmol/L (21-32); COCKROFT - GAULT 155.63; CREATININE 0.4 mg/dL (0.7-1.3); GLUCOSE,RANDOM 228 mg/dL (74-106)
[2016-10-27 09:30] LABS: MAGNESIUM 1.7 mg/dL (1.8-2.4); PHOSPHOROUS 2.1 mg/dL (2.5-4.9)
[2016-10-27 09:59] LABS: MCH 30.3 pg (25.7-33.7); MCHC 34.3 g/dl (32.0-35.9); MEAN CELL VOLUME 88.3 fl (80-96); MEAN PLT VOLUME 7.6 fl (7.5-11.1); PLATELET COUNT 309 K/MM3 (134-434); RDW 20.2 % (11.9-15.9)
[2016-10-27] MEDS: PANTOPRAZOLE SOD 40 MG SUSPENSION PACKET PO SCH ×2 (10:36→21:58)
[2016-10-27] MEDS: SUCRALFATE 1 GM/10 ML UNIT DOSE CUPS PO SCH ×4 (10:36→21:58)
--- NOTE | 2016-10-27 12:39 | PN ---
Progress Note, Physician History of Present Illness: post endoscopy patient stable no new issues - Current Medication List Current Medications: Active Medications Fat Emulsion Intravenous (Intralipid -) 500 ml IV DAILY@2200 [facility] Last Admin: 10/26/16 22:18 Dose: 500 ml Amino Acids (Clinimix -) 1,000 mls @ 84 mls/hr IV Q12H [facility] Last Admin: 10/27/16 06:39 Dose: Not Given Multivitamins/Minerals (Infuvite Adult -) 10 ml IV DAILY [facility] Last Admin: 10/26/16 11:48 Dose: 10 ml Ondansetron HCl (Zofran Injection) 4 mg IVPB Q6H PRN PRN Reason: NAUSEA Pantoprazole Sodium (Protonix Packets For Oral Suspension -) 40 mg PO BID [facility] Last Admin: 10/27/16 10:36 Dose: 40 mg Risperidone (Risperdal -) 0.25 mg PO TID PRN PRN Reason: AGITATION Sucralfate (Carafate Oral Suspension -) 1 gm PO QID [facility] Last Admin: 10/27/16 10:36 Dose: 1 gm - Objective Vital Signs: Vital Signs Temperature 98.2 F 10/27/16 10:04 Pulse Rate 84 10/27/16 10:04 Respiratory Rate 20 10/27/16 10:04 Blood Pressure 148/82 10/27/16 10:04 O2 Sat by Pulse Oximetry (%) 95 10/27/16 09:00 Constitutional: Yes: No Distress, Calm Eyes: Yes: Conjunctiva Clear, EOM Intact Cardiovascular: Yes: S1, S2 Respiratory: Yes: Regular, CTA Bilaterally Gastrointestinal: Yes: Normal Bowel Sounds, Soft Neurological: Yes: Alert, Oriented Psychiatric: Yes: Alert, Oriented Labs: CBC, BMP 10/27/16 07:30 10/27/16 07:30 INR, PTT INR 1.16 (0.82-1.09) H 10/25/16 05:30 Assessment/Plan Problem List - Problems (1) Acute blood loss anemia Code(s): D62 - ACUTE POSTHEMORRHAGIC ANEMIA (2) UGIB (upper gastrointestinal bleed) Code(s): K92.2 - GASTROINTESTINAL HEMORRHAGE, UNSPECIFIED (3) CAD (coronary artery disease) Code(s): I25.10 - ATHSCL HEART DISEASE OF [place] CORONARY ARTERY W/O ANG PCTRS (4) Dementia Code(s): F03.90 - UNSPECIFIED DEMENTIA WITHOUT BEHAVIORAL DISTURBANCE (5) Parkinson disease Code(s): G20 - PARKINSON'S DISEASE (6) Leukocytosis Code(s): D72.829 - ELEVATED WHITE BLOOD CELL COUNT, UNSPECIFIED plan continue to monitor patient await for biopsy reports rest as per primary
[2016-10-27] MEDS: MULTIVIT INJ. ADULT COMBO WITH VIT K 1 COMBO 10 ML VIAL IV SCH (13:26)
--- NOTE | 2016-10-27 13:27 | EKG ---
Test Reason : Blood Pressure : / mmHG Vent. Rate : 077 BPM Atrial Rate : 077 BPM P-R Int : 208 ms QRS Dur : 092 ms QT Int : 402 ms P-R-T Axes : 078 059 062 degrees QTc Int : 454 ms SINUS RHYTHM WITH PREMATURE ATRIAL COMPLEXES OTHERWISE NORMAL ECG WITH 1ST DEGREE A-V BLOCK WHEN COMPARED WITH ECG OF 24-OCT-2016 07:18, SINUS RHYTHM HAS REPLACED ATRIAL FIBRILLATION Confirmed by PATRICK WELSH, BERTHA ([id number]) on 10/27/2016 1:26:52 PM Referred By: Confirmed By:BERTHA NGUYEN MD
[2016-10-27] MEDS ORDERED: MAGNESIUM SULF 50% (8.12 MEQ/2 ML-1 GM VIAL) IVPB ONE ×2 (14:57→16:15)
[2016-10-27] MEDS ORDERED: POTASSIUM PHOSPHATE 16 MM in SODIUM CHLORIDE 250 ML IVPB ONE (15:15)
--- NOTE | 2016-10-27 15:31 | PN ---
Progress Note, Physician Chief Complaint: Mr Mireles is without complaint. Says he feels fine. - Current Medication List Current Medications: Active Medications Fat Emulsion Intravenous (Intralipid -) 500 ml IV DAILY@2200 [facility] Last Admin: 10/26/16 22:18 Dose: 500 ml Amino Acids (Clinimix -) 1,000 mls @ 84 mls/hr IV Q12H [facility] Last Admin: 10/27/16 13:27 Dose: 84 mls/hr Potassium Chloride (Potassium Chloride 10 Meq Premix Ivpb -) 100 mls @ 100 mls/ hr IVPB Q60M [facility] Stop: 10/27/16 16:59 Potassium Phosphate 16 mm/ (Sodium Chloride) 255.3333 mls @ 62.5 mls/hr IVPB ONCE ONE Stop: 10/27/16 19:20 Multivitamins/Minerals (Infuvite Adult -) 10 ml IV DAILY [facility] Last Admin: 10/27/16 13:26 Dose: 10 ml Nystatin (Nystop Powder -) 1 applic TP BID [facility] Ondansetron HCl (Zofran Injection) 4 mg IVPB Q6H PRN PRN Reason: NAUSEA Pantoprazole Sodium (Protonix Packets For Oral Suspension -) 40 mg PO BID [facility] Last Admin: 10/27/16 10:36 Dose: 40 mg Risperidone (Risperdal -) 0.25 mg PO TID PRN PRN Reason: AGITATION Sucralfate (Carafate Oral Suspension -) 1 gm PO QID [facility] Last Admin: 10/27/16 13:26 Dose: 1 gm - Objective Vital Signs: Vital Signs Temperature 98.5 F 10/27/16 14:42 Pulse Rate 92 H 10/27/16 14:42 Respiratory Rate 22 10/27/16 14:42 Blood Pressure 136/79 10/27/16 14:42 O2 Sat by Pulse Oximetry (%) 95 10/27/16 09:00 Constitutional: Yes: Well Nourished, No Distress, Calm Cardiovascular: Yes: Regular Rate and Rhythm. No: Gallop, Murmur, Rub Respiratory: Yes: Regular, CTA Bilaterally. No: Rales, Rhonchi, Wheezes Gastrointestinal: Yes: Normal Bowel Sounds, Soft. No: Distention, Tenderness Extremities: Yes: WNL Edema: No Labs: CBC, BMP 10/27/16 07:30 10/27/16 07:30 INR, PTT INR 1.16 (0.82-1.09) H 10/25/16 05:30 Problem List - Problems (1) Acute blood loss anemia Code(s): D62 - ACUTE POSTHEMORRHAGIC ANEMIA (2) UGIB (upper gastrointestinal bleed) Code(s): K92.2 - GASTROINTESTINAL HEMORRHAGE, UNSPECIFIED (3) CAD (coronary artery disease) Code(s): I25.10 - ATHSCL HEART DISEASE OF [place] CORONARY ARTERY W/O ANG PCTRS (4) Dementia Code(s): F03.90 - UNSPECIFIED DEMENTIA WITHOUT BEHAVIORAL DISTURBANCE (5) Parkinson disease Code(s): G20 - PARKINSON'S DISEASE (6) Leukocytosis Code(s): D72.829 - ELEVATED WHITE BLOOD CELL COUNT, UNSPECIFIED Assessment/Plan (1) Acute blood loss anemia Assessment/Plan: -secondary to GIB -s/p transfusion with good result -monitor -currently stable Code(s): D62 - ACUTE POSTHEMORRHAGIC ANEMIA (2) UGIB (upper gastrointestinal bleed) Assessment/Plan: -case d/w GI -awaiting biopsy results -once resulted, can begin disposition planning Code(s): K92.2 - GASTROINTESTINAL HEMORRHAGE, UNSPECIFIED (3) CAD (coronary artery disease) Assessment/Plan: -no complaints of chest pain -monitor -no anticoagulation or antiplatelet agents Code(s): I25.10 - ATHSCL HEART DISEASE OF [place] CORONARY ARTERY W/O ANG PCTRS (4) Dementia Assessment/Plan: -at baseline per family Code(s): F03.90 - UNSPECIFIED DEMENTIA WITHOUT BEHAVIORAL DISTURBANCE (5) Parkinson disease Assessment/Plan: -monitor Code(s): G20 - PARKINSON'S DISEASE (6) Leukocytosis Assessment/Plan: -resolved -antibiotics discontinued -cultures negative Code(s): D72.829 - ELEVATED WHITE BLOOD CELL COUNT, UNSPECIFIED
[2016-10-27] MEDS: KCL 10 MEQ IVPB 100 ML IVPB SCH ×2 (15:40→16:43)
[2016-10-27 16:12] LABS: SMUDGE CELLS MANY
[2016-10-27 16:13] LABS: PLATELET ESTIMATE ADEQUATE (NORMAL)
[2016-10-27] MEDS: NYSTATIN POWDER 100,000 UNITS/GM - 15 GM TOPICAL POWDER TP SCH (21:58)
[2016-10-27] MEDS: FAT EMULSIONS 20% 500 ML PREMIX INFUS.BAG IV SCH (21:58)
[2016-10-28] MEDS: AMINO ACIDS 4.25%/D5W 1,000 ML IV SCH ×3 (06:26→17:41)
[2016-10-28 07:44] LABS: CALCIUM 7.6 mg/dL (8.5-10.1); COCKROFT - GAULT 157.91; CREATININE 0.4 mg/dL (0.7-1.3); PHOSPHOROUS 2.6 mg/dL (2.5-4.9)
[2016-10-28 08:02] LABS: MCH 29.4 pg (25.7-33.7); MCHC 33.3 g/dl (32.0-35.9); MEAN CELL VOLUME 88.2 fl (80-96); MEAN PLT VOLUME 7.9 fl (7.5-11.1); PLATELET COUNT 258 K/MM3 (134-434); RDW 20.6 % (11.9-15.9); WHITE BLOOD COUNT 5.8 K/mm3 (4.0-10.0)
[2016-10-28] MEDS ORDERED: PT OWN MED DRAWER 7, Y5N ONE (09:39)
[2016-10-28] MEDS: PANTOPRAZOLE SOD 40 MG SUSPENSION PACKET PO SCH ×2 (09:47→22:53)
[2016-10-28] MEDS: SUCRALFATE 1 GM/10 ML UNIT DOSE CUPS PO SCH ×4 (09:47→22:53)
[2016-10-28] MEDS: NYSTATIN POWDER 100,000 UNITS/GM - 15 GM TOPICAL POWDER TP SCH ×2 (09:47→22:53)
[2016-10-28] MEDS: MULTIVIT INJ. ADULT COMBO WITH VIT K 1 COMBO 10 ML VIAL IV SCH (10:03)
[2016-10-28 11:05] LABS: PLATELET ESTIMATE ADEQUATE (NORMAL)
[2016-10-28] MEDS: KCL 10 MEQ IVPB 100 ML IVPB SCH ×3 (11:46→14:10)
--- NOTE | 2016-10-28 14:37 | PN ---
Progress Note, Physician Chief Complaint: Mr Mireles is without complaint. Says he feels fine. - Current Medication List Current Medications: Active Medications Fat Emulsion Intravenous (Intralipid -) 500 ml IV DAILY@2200 [facility] Last Admin: 10/27/16 21:58 Dose: 500 ml Amino Acids (Clinimix -) 1,000 mls @ 84 mls/hr IV Q12H [facility] Last Admin: 10/28/16 10:03 Dose: 84 mls/hr Potassium Chloride (Potassium Chloride 10 Meq Premix Ivpb -) 100 mls @ 100 mls/ hr IVPB Q60M [facility] Stop: 10/28/16 14:29 Last Admin: 10/28/16 14:10 Dose: 100 mls/hr Multivitamins/Minerals (Infuvite Adult -) 10 ml IV DAILY [facility] Last Admin: 10/28/16 10:03 Dose: 10 ml Nystatin (Nystop Powder -) 1 applic TP BID [facility] Last Admin: 10/28/16 09:47 Dose: 1 applic Ondansetron HCl (Zofran Injection) 4 mg IVPB Q6H PRN PRN Reason: NAUSEA Pantoprazole Sodium (Protonix Packets For Oral Suspension -) 40 mg PO BID [facility] Last Admin: 10/28/16 09:47 Dose: 40 mg Risperidone (Risperdal -) 0.25 mg PO TID PRN PRN Reason: AGITATION Sucralfate (Carafate Oral Suspension -) 1 gm PO QID [facility] Last Admin: 10/28/16 09:47 Dose: 1 gm - Objective Vital Signs: Vital Signs Temperature 97 F L 10/28/16 07:00 Pulse Rate 83 10/28/16 07:00 Respiratory Rate 18 10/28/16 07:00 Blood Pressure 156/79 10/28/16 07:00 O2 Sat by Pulse Oximetry (%) 95 10/27/16 22:00 Constitutional: Yes: Well Nourished, No Distress, Calm Cardiovascular: Yes: Regular Rate and Rhythm. No: Gallop, Murmur, Rub Respiratory: Yes: Regular, CTA Bilaterally. No: Rales, Rhonchi, Wheezes Gastrointestinal: Yes: Normal Bowel Sounds, Soft. No: Distention, Tenderness Extremities: Yes: WNL Edema: No Labs: CBC, BMP 10/28/16 06:20 10/28/16 06:20 INR, PTT INR 1.16 (0.82-1.09) H 10/25/16 05:30 Problem List - Problems (1) Acute blood loss anemia Code(s): D62 - ACUTE POSTHEMORRHAGIC ANEMIA (2) UGIB (upper gastrointestinal bleed) Code(s): K92.2 - GASTROINTESTINAL HEMORRHAGE, UNSPECIFIED (3) CAD (coronary artery disease) Code(s): I25.10 - ATHSCL HEART DISEASE OF [place] CORONARY ARTERY W/O ANG PCTRS (4) Dementia Code(s): F03.90 - UNSPECIFIED DEMENTIA WITHOUT BEHAVIORAL DISTURBANCE (5) Parkinson disease Code(s): G20 - PARKINSON'S DISEASE (6) Leukocytosis Code(s): D72.829 - ELEVATED WHITE BLOOD CELL COUNT, UNSPECIFIED Assessment/Plan (1) Acute blood loss anemia Assessment/Plan: -secondary to GIB -s/p transfusion with good result -monitor -currently stable Code(s): D62 - ACUTE POSTHEMORRHAGIC ANEMIA (2) UGIB (upper gastrointestinal bleed) Assessment/Plan: -case d/w GI, biopsy results positive for adenocarcinoma -high risk of re-bleed -continue PPI -advance diet as tolerated per GI -consult oncology for options -case d/w daughter Code(s): K92.2 - GASTROINTESTINAL HEMORRHAGE, UNSPECIFIED (3) CAD (coronary artery disease) Assessment/Plan: -no complaints of chest pain -monitor -no anticoagulation or antiplatelet agents Code(s): I25.10 - ATHSCL HEART DISEASE OF [place] CORONARY ARTERY W/O ANG PCTRS (4) Dementia Assessment/Plan: -at baseline per family Code(s): F03.90 - UNSPECIFIED DEMENTIA WITHOUT BEHAVIORAL DISTURBANCE (5) Parkinson disease Assessment/Plan: -monitor Code(s): G20 - PARKINSON'S DISEASE (6) Leukocytosis Assessment/Plan: -resolved -antibiotics discontinued -cultures negative Code(s): D72.829 - ELEVATED WHITE BLOOD CELL COUNT, UNSPECIFIED
--- NOTE | 2016-10-28 16:15 | PATH ---
Surgical Pathology Report Patient Name: LINDSAY MORA [facility]. Rec. #: [id number] /Age/Gender: 1940 (Age: 76) / M Account: [id number] Location: [address] [place] [address] Taken: 10/26/2016 Received: 10/26/2016 Reported: 10/28/2016 Physicians: Joselyn Chaidez M.D. Specimen(s) Received A: BX EDGE OF GASTRIC ULCER B: BX GASTRIC BODY Clinical History GI bleed Gastric ulcer with eschar Final Diagnosis A. GASTRIC BODY, BIOPSY: MODERATE CHRONIC GASTRITIS WITH INTESTINAL METAPLASIA. IMMUNOSTAIN IS NEGATIVE FOR H. PYLORI ORGANISMS. B. EDGE OF GASTRIC ULCER, BIOPSY: ADENOCARCINOMA, INTESTINAL TYPE, POORLY DIFFERENTIATED. Comment: Her2 studies are being performed and the results will be reported separately in an addendum. Case discussed with Dr. Munoz on 10/28/16. Electronically Signed Sonia Doan M.D. Addendum Reported: 10/29/2016 Addendum Diagnosis Results of Her2 (IHC) studies performed and interpreted at [place], [place] ([id number]) are as follows: Her2 IHC (EP3 from [employer], formerly known as [id number], using [employer] Polymer Refine detection kit): 0 (Negative). Sonia Doan M.D. Gross Description A. Received in formalin, labeled "biopsy gastric body" is a tristan, irregular portion of soft tissue measuring 0.5 cm. in greatest dimension. The specimen is submitted in toto in one cassette. B. Received in formalin, labeled "biopsy edge of gastric ulcer" are 4 tristan, irregular portions of soft tissue averaging 0.3 cm. in greatest dimension. The specimens are submitted in toto in one cassette. saudi/10/27/2016
--- NOTE | 2016-10-28 18:01 | PN ---
Progress Note, Physician History of Present Illness: post endoscopy biopsy now returning with adeno ca patient clinically stable - Current Medication List Current Medications: Active Medications Fat Emulsion Intravenous (Intralipid -) 500 ml IV DAILY@2200 [facility] Last Admin: 10/27/16 21:58 Dose: 500 ml Amino Acids (Clinimix -) 1,000 mls @ 84 mls/hr IV Q12H [facility] Last Admin: 10/28/16 17:41 Dose: Not Given Multivitamins/Minerals (Infuvite Adult -) 10 ml IV DAILY [facility] Last Admin: 10/28/16 10:03 Dose: 10 ml Nystatin (Nystop Powder -) 1 applic TP BID [facility] Last Admin: 10/28/16 09:47 Dose: 1 applic Ondansetron HCl (Zofran Injection) 4 mg IVPB Q6H PRN PRN Reason: NAUSEA Pantoprazole Sodium (Protonix Packets For Oral Suspension -) 40 mg PO BID [facility] Last Admin: 10/28/16 09:47 Dose: 40 mg Risperidone (Risperdal -) 0.25 mg PO TID PRN PRN Reason: AGITATION Sucralfate (Carafate Oral Suspension -) 1 gm PO QID [facility] Last Admin: 10/28/16 17:51 Dose: 1 gm - Objective Vital Signs: Vital Signs Temperature 98.2 F 10/28/16 14:32 Pulse Rate 88 10/28/16 14:32 Respiratory Rate 20 10/28/16 14:32 Blood Pressure 139/86 10/28/16 14:32 O2 Sat by Pulse Oximetry (%) 95 10/27/16 22:00 Constitutional: Yes: No Distress, Calm Cardiovascular: Yes: S1, S2 Respiratory: Yes: Regular, CTA Bilaterally Gastrointestinal: Yes: Normal Bowel Sounds, Soft Musculoskeletal: Yes: WNL Extremities: Yes: Other Neurological: Yes: Alert, Oriented Psychiatric: Yes: Alert, Oriented Labs: CBC, BMP 10/28/16 06:20 10/28/16 06:20 INR, PTT INR 1.16 (0.82-1.09) H 10/25/16 05:30 Assessment/Plan Problem List - Problems (1) Acute blood loss anemia Code(s): D62 - ACUTE POSTHEMORRHAGIC ANEMIA (2) UGIB (upper gastrointestinal bleed) Code(s): K92.2 - GASTROINTESTINAL HEMORRHAGE, UNSPECIFIED (3) CAD (coronary artery disease) Code(s): I25.10 - ATHSCL HEART DISEASE OF [place] CORONARY ARTERY W/O ANG PCTRS (4) Dementia Code(s): F03.90 - UNSPECIFIED DEMENTIA WITHOUT BEHAVIORAL DISTURBANCE (5) Parkinson disease Code(s): G20 - PARKINSON'S DISEASE (6) Leukocytosis Code(s): D72.829 - ELEVATED WHITE BLOOD CELL COUNT, UNSPECIFIED plan continue to monitor patient await for biopsy reports rest as per primary
--- NOTE | 2016-10-28 21:21 | PN ---
Progress Note (short form) - Note Progress Note: GASTROENTEROLOGY BIOPSIES HAVE RETRUN POORLY DIFFERENTIATED ADENOCARCINOMA, HER STUDIES ARE PENDING SPOKE WITH PMD TODAY WILL SPEAK WITH FAMILY MALCOLM HAM MD Problem List - Problems (1) UGIB (upper gastrointestinal bleed) Code(s): K92.2 - GASTROINTESTINAL HEMORRHAGE, UNSPECIFIED (2) Acute blood loss anemia Code(s): D62 - ACUTE POSTHEMORRHAGIC ANEMIA (3) Dementia Code(s): F03.90 - UNSPECIFIED DEMENTIA WITHOUT BEHAVIORAL DISTURBANCE (4) Parkinson disease Code(s): G20 - PARKINSON'S DISEASE (5) CAD (coronary artery disease) Code(s): I25.10 - ATHSCL HEART DISEASE OF [place] CORONARY ARTERY W/O ANG PCTRS (6) S/P CABG x 3 Code(s): Z95.1 - PRESENCE OF AORTOCORONARY BYPASS GRAFT
[2016-10-28] MEDS: FAT EMULSIONS 20% 500 ML PREMIX INFUS.BAG IV SCH (22:53)
--- NOTE | 2016-10-28 22:53 | CONSULT ---
Consult - text type - Consultation Consultation Note: Patient seen and examined Mr Mireles is a 76 y/o man with dementia, parkinsons, HTN, HL, CAD s/p CABG, stents , was on asa and presents from skilled nursing with hematemesis and anemia. 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 asa. carbidopa-levodopa. colace. lasix. glipizid. lisinopril. metformin. pantoprazole. ploglitazone. simvastatin. toprol xl Family Disease History - Family Disease History Family History: Unremarkable Physical Exam Vital Signs: Last Vital Signs Temp Pulse Resp BP Pulse Ox 98.7 F 90 20 132/59 96 10/29/16 14:20 10/29/16 15:31 10/29/16 15:31 10/29/16 15:31 10/29/16 11:00 Cor: RSR, No murmurs, No gallops Lungs: Clear to P&A Abd: Soft, Normal bowel sounds, No organomegaly Ext:rigidity, cogwheel Labs reviewed A/P 76 y/o with multiple comorbidities, bed bound , comes in with gi bleed, hematemesis, anemia and gastric cancer Discussed with GI team -- Dr. Munoz who felt the ulcer was invasive through the wall Awaiting Her2 studies Surgical candidacy ??? given comorbidities consider rad-onc consult?
[2016-10-29] MEDS: AMINO ACIDS 4.25%/D5W 1,000 ML IV SCH ×4 (00:08→18:29)
[2016-10-29 09:18] LABS: BASOPHIL 0.2 % (0-2.0); EOSINOPHIL 2.3 % (0-4.5); MCH 29.4 pg (25.7-33.7); MCHC 33.2 g/dl (32.0-35.9); MEAN CELL VOLUME 88.5 fl (80-96); MEAN PLT VOLUME 7.7 fl (7.5-11.1); NEUTROPHILS 61.3 % (42.8-82.8); PLATELET COUNT 263 K/MM3 (134-434); RDW 20.1 % (11.9-15.9); WHITE BLOOD COUNT 6.3 K/mm3 (4.0-10.0)
[2016-10-29 09:24] LABS: ANION GAP 9 (8-16); CO2 28 mmol/L (21-32); COCKROFT - GAULT 156.22; CREATININE 0.4 mg/dL (0.7-1.3); GLUCOSE,RANDOM 271 mg/dL (74-106); MAGNESIUM 1.8 mg/dL (1.8-2.4); PHOSPHOROUS 1.9 mg/dL (2.5-4.9)
[2016-10-29] MEDS: NYSTATIN POWDER 100,000 UNITS/GM - 15 GM TOPICAL POWDER TP SCH ×3 (10:00→22:55)
[2016-10-29] MEDS: PANTOPRAZOLE SOD 40 MG SUSPENSION PACKET PO SCH ×2 (10:42→22:43)
[2016-10-29] MEDS: SUCRALFATE 1 GM/10 ML UNIT DOSE CUPS PO SCH ×4 (10:42→22:43)
--- NOTE | 2016-10-29 10:43 | PN ---
Progress Note, Physician History of Present Illness: stable no new issues - Current Medication List Current Medications: Active Medications Fat Emulsion Intravenous (Intralipid -) 500 ml IV DAILY@2200 [facility] Last Admin: 10/28/16 22:53 Dose: 500 ml Amino Acids (Clinimix -) 1,000 mls @ 84 mls/hr IV Q12H [facility] Last Admin: 10/29/16 05:46 Dose: Not Given Multivitamins/Minerals (Infuvite Adult -) 10 ml IV DAILY [facility] Last Admin: 10/28/16 10:03 Dose: 10 ml Nystatin (Nystop Powder -) 1 applic TP BID [facility] Last Admin: 10/28/16 22:53 Dose: 1 applic Ondansetron HCl (Zofran Injection) 4 mg IVPB Q6H PRN PRN Reason: NAUSEA Pantoprazole Sodium (Protonix Packets For Oral Suspension -) 40 mg PO BID [facility] Last Admin: 10/28/16 22:53 Dose: 40 mg Risperidone (Risperdal -) 0.25 mg PO TID PRN PRN Reason: AGITATION Sucralfate (Carafate Oral Suspension -) 1 gm PO QID [facility] Last Admin: 10/28/16 22:53 Dose: 1 gm - Objective Vital Signs: Vital Signs Temperature 98.1 F 10/29/16 10:38 Pulse Rate 84 10/29/16 10:38 Respiratory Rate 20 10/29/16 10:38 Blood Pressure 136/72 10/29/16 10:38 O2 Sat by Pulse Oximetry (%) 95 10/28/16 22:00 Constitutional: Yes: No Distress, Calm Cardiovascular: Yes: S1, S2 Respiratory: Yes: Regular, CTA Bilaterally Gastrointestinal: Yes: Normal Bowel Sounds, Soft Musculoskeletal: Yes: WNL Extremities: Yes: WNL Neurological: Yes: Alert, Oriented Labs: CBC, BMP 10/29/16 07:30 10/29/16 07:30 INR, PTT INR 1.16 (0.82-1.09) H 10/25/16 05:30 Assessment/Plan Problem List - Problems (1) Acute blood loss anemia Code(s): D62 - ACUTE POSTHEMORRHAGIC ANEMIA (2) UGIB (upper gastrointestinal bleed) Code(s): K92.2 - GASTROINTESTINAL HEMORRHAGE, UNSPECIFIED (3) CAD (coronary artery disease) Code(s): I25.10 - ATHSCL HEART DISEASE OF [place] CORONARY ARTERY W/O ANG PCTRS (4) Dementia Code(s): F03.90 - UNSPECIFIED DEMENTIA WITHOUT BEHAVIORAL DISTURBANCE (5) Parkinson disease Code(s): G20 - PARKINSON'S DISEASE (6) Leukocytosis Code(s): D72.829 - ELEVATED WHITE BLOOD CELL COUNT, UNSPECIFIED plan continue to monitor patient biopsy results noted ct as per gi' rest as per primary
[2016-10-29] MEDS ORDERED: PT OWN MED DRAWER 7, Y5N ONE ×2 (11:58→22:06)
[2016-10-29] MEDS: MULTIVIT INJ. ADULT COMBO WITH VIT K 1 COMBO 10 ML VIAL IV SCH (13:38)
--- NOTE | 2016-10-29 14:01 | PN ---
Progress Note, Physician Chief Complaint: Mr Mireles is without complaint. Says he feels fine. Son at bedside and confirms Mr Mireles says he is feeling fine. - Current Medication List Current Medications: Active Medications Fat Emulsion Intravenous (Intralipid -) 500 ml IV DAILY@2200 [facility] Last Admin: 10/28/16 22:53 Dose: 500 ml Amino Acids (Clinimix -) 1,000 mls @ 84 mls/hr IV Q12H [facility] Last Admin: 10/29/16 13:37 Dose: 84 mls/hr Potassium Chloride (Potassium Chloride 10 Meq Premix Ivpb -) 100 mls @ 100 mls/ hr IVPB Q60M [facility] Stop: 10/29/16 16:59 Potassium Phosphate 16 mm/ (Sodium Chloride) 255.3333 mls @ 62.5 mls/hr IVPB ONCE ONE Stop: 10/29/16 17:57 Multivitamins/Minerals (Infuvite Adult -) 10 ml IV DAILY [facility] Last Admin: 10/29/16 13:38 Dose: 10 ml Nystatin (Nystop Powder -) 1 applic TP BID [facility] Last Admin: 10/28/16 22:53 Dose: 1 applic Ondansetron HCl (Zofran Injection) 4 mg IVPB Q6H PRN PRN Reason: NAUSEA Pantoprazole Sodium (Protonix Packets For Oral Suspension -) 40 mg PO BID [facility] Last Admin: 10/29/16 10:42 Dose: 40 mg Risperidone (Risperdal -) 0.25 mg PO TID PRN PRN Reason: AGITATION Sucralfate (Carafate Oral Suspension -) 1 gm PO QID [facility] Last Admin: 10/29/16 10:42 Dose: 1 gm - Objective Vital Signs: Vital Signs Temperature 98.1 F 10/29/16 10:38 Pulse Rate 84 10/29/16 10:38 Respiratory Rate 20 10/29/16 10:38 Blood Pressure 136/72 10/29/16 10:38 O2 Sat by Pulse Oximetry (%) 96 10/29/16 11:00 Constitutional: Yes: Well Nourished, No Distress, Calm Cardiovascular: Yes: Regular Rate and Rhythm. No: Gallop, Murmur, Rub Respiratory: Yes: Regular, CTA Bilaterally. No: Rales, Rhonchi, Wheezes Gastrointestinal: Yes: Normal Bowel Sounds, Soft. No: Distention, Tenderness Extremities: Yes: WNL Edema: No Labs: CBC, BMP 10/29/16 07:30 10/29/16 07:30 INR, PTT INR 1.16 (0.82-1.09) H 10/25/16 05:30 Problem List - Problems (1) Adenocarcinoma of stomach Code(s): C16.9 - MALIGNANT NEOPLASM OF STOMACH, UNSPECIFIED (2) Acute blood loss anemia Code(s): D62 - ACUTE POSTHEMORRHAGIC ANEMIA (3) UGIB (upper gastrointestinal bleed) Code(s): K92.2 - GASTROINTESTINAL HEMORRHAGE, UNSPECIFIED (4) CAD (coronary artery disease) Code(s): I25.10 - ATHSCL HEART DISEASE OF [place] CORONARY ARTERY W/O ANG PCTRS (5) Dementia Code(s): F03.90 - UNSPECIFIED DEMENTIA WITHOUT BEHAVIORAL DISTURBANCE (6) Parkinson disease Code(s): G20 - PARKINSON'S DISEASE (7) Leukocytosis Code(s): D72.829 - ELEVATED WHITE BLOOD CELL COUNT, UNSPECIFIED Assessment/Plan (1) Adenocarcinoma of the stomach -cause of ABLA -high risk for rebleeding -oncology consulted -? palliative care consult (2) Acute blood loss anemia Assessment/Plan: -secondary to GIB -s/p transfusion with good result -H/H slow decreasing -GI and heme/onc following Code(s): D62 - ACUTE POSTHEMORRHAGIC ANEMIA (3) UGIB (upper gastrointestinal bleed) Assessment/Plan: -case d/w GI, biopsy results positive for adenocarcinoma -high risk of re-bleed -continue PPI -advance diet as tolerated per GI -oncology consulted Code(s): K92.2 - GASTROINTESTINAL HEMORRHAGE, UNSPECIFIED (4) CAD (coronary artery disease) Assessment/Plan: -no complaints of chest pain -monitor -no anticoagulation or antiplatelet agents Code(s): I25.10 - ATHSCL HEART DISEASE OF [place] CORONARY ARTERY W/O ANG PCTRS (5) Dementia Assessment/Plan: -at baseline per family Code(s): F03.90 - UNSPECIFIED DEMENTIA WITHOUT BEHAVIORAL DISTURBANCE (6) Parkinson disease Assessment/Plan: -monitor Code(s): G20 - PARKINSON'S DISEASE (7) Leukocytosis Assessment/Plan: -resolved -antibiotics discontinued -cultures negative Code(s): D72.829 - ELEVATED WHITE BLOOD CELL COUNT, UNSPECIFIED
[2016-10-29] MEDS: KCL 10 MEQ IVPB 100 ML IVPB SCH ×3 (14:40→17:18)
--- NOTE | 2016-10-29 16:52 | PN ---
Progress Note (short form) - Note Progress Note: Patient seen and examined Positive biopsy for gastric ca Reviewed case with daughter -Raysa. Currently the family would like to find out if disease is local or spread. I discussed CT scanning with her. She agrees to proceed . Last Vital Signs Temp Pulse Resp BP Pulse Ox 98.7 F 90 20 132/59 96 10/29/16 14:20 10/29/16 15:31 10/29/16 15:31 10/29/16 15:31 10/29/16 11:00 HEENT: NAYE, EOM Intact Oropharynx: No thrush, No mucositis Cor: RSR, No murmurs, No gallops Lungs: diminished breath sounds Abd: Soft, Normal bowel sounds, No organomegaly Ext:No significant edema,SCD Skin: No rashes, Integument intact CBC, BMP 10/29/16 07:30 10/29/16 07:30 Current Medications Generic Name Dose Route Start Last Admin Trade Name Freq PRN Reason Stop Dose Admin Fat Emulsion Intravenous 500 ml 10/26/16 22:00 10/28/16 22:53 Intralipid - IV 500 ml DAILY@2200 JO[facility] Administration Amino Acids 1,000 mls @ 84 mls/hr 10/26/16 18:30 10/29/16 13:37 Clinimix - IV 84 mls/hr Q12H [facility] Administration Potassium Chloride 100 mls @ 100 mls/hr 10/29/16 14:00 10/29/16 16:17 Potassium Chloride 10 Meq Premix Ivpb - IVPB 10/29/16 16:59 100 mls/hr Q60M [facility]SE Administration Potassium Phosphate 16 mm/ 255.3333 mls @ 63.833 mls/hr 10/29/16 17:00 Sodium Chloride IVPB 10/29/16 20:59 ONCE ONE Multivitamins/Minerals 10 ml 10/26/16 10:00 10/29/16 13:38 Infuvite Adult - IV 10 ml DAILY [facility] Administration Nystatin 1 applic 10/27/16 22:00 10/28/16 22:53 Nystop Powder - TP 1 applic BID [facility] Administration Ondansetron HCl 4 mg 10/26/16 07:56 Zofran Injection IVPB Q6H PRN NAUSEA Pantoprazole Sodium 40 mg 10/26/16 22:00 10/29/16 10:42 Protonix Packets For Oral Suspension - PO 40 mg BID [facility] Administration Risperidone 0.25 mg 10/26/16 07:56 Risperdal - PO TID PRN AGITATION Sucralfate 1 gm 10/26/16 18:00 10/29/16 14:40 Carafate Oral Suspension - PO 1 gm QID [facility] Administration Impression: Parkinsons Bed bound Gastric Ca GI bleeding. Plan: CT scans Await Her -2-jeannette studies.
[2016-10-29] MEDS ORDERED: POTASSIUM PHOSPHATE 16 MM in SODIUM CHLORIDE 250 ML IVPB ONE (17:00)
[2016-10-29] MEDS: FAT EMULSIONS 20% 500 ML PREMIX INFUS.BAG IV SCH (22:42)
[2016-10-30] MEDS: AMINO ACIDS 4.25%/D5W 1,000 ML IV SCH ×3 (06:49→21:39)
[2016-10-30 08:11] LABS: EOSINOPHIL 4.5 % (0-4.5); MCH 30.1 pg (25.7-33.7); MCHC 34.6 g/dl (32.0-35.9); MEAN CELL VOLUME 86.8 fl (80-96); MEAN PLT VOLUME 7.7 fl (7.5-11.1); NEUTROPHILS 56.1 % (42.8-82.8); PLATELET COUNT 244 K/MM3 (134-434); RDW 19.3 % (11.9-15.9); WHITE BLOOD COUNT 5.2 K/mm3 (4.0-10.0)
[2016-10-30 09:01] LABS: COCKROFT - GAULT 126.45; CREATININE 0.5 mg/dL (0.7-1.3); MAGNESIUM 1.8 mg/dL (1.8-2.4); PHOSPHOROUS 2.6 mg/dL (2.5-4.9)
[2016-10-30] MEDS: MULTIVIT INJ. ADULT COMBO WITH VIT K 1 COMBO 10 ML VIAL IV SCH (09:49)
[2016-10-30] MEDS: PANTOPRAZOLE SOD 40 MG SUSPENSION PACKET PO SCH ×2 (10:25→21:38)
[2016-10-30] MEDS: SUCRALFATE 1 GM/10 ML UNIT DOSE CUPS PO SCH ×5 (10:25→21:38)
[2016-10-30] MEDS: NYSTATIN POWDER 100,000 UNITS/GM - 15 GM TOPICAL POWDER TP SCH ×3 (10:27→21:38)
--- NOTE | 2016-10-30 16:51 | PN ---
Progress Note (short form) - Note Progress Note: Patient scheduled for CT scan today. No acute event overnight. Discussed with daughter over the phone. - Current Medication List Current Medications: Active Medications Fat Emulsion Intravenous (Intralipid -) 500 ml IV DAILY@2200 [facility] Last Admin: 10/28/16 22:53 Dose: 500 ml Amino Acids (Clinimix -) 1,000 mls @ 84 mls/hr IV Q12H [facility] Last Admin: 10/29/16 13:37 Dose: 84 mls/hr Potassium Chloride (Potassium Chloride 10 Meq Premix Ivpb -) 100 mls @ 100 mls/ hr IVPB Q60M [facility] Stop: 10/29/16 16:59 Potassium Phosphate 16 mm/ (Sodium Chloride) 255.3333 mls @ 62.5 mls/hr IVPB ONCE ONE Stop: 10/29/16 17:57 Multivitamins/Minerals (Infuvite Adult -) 10 ml IV DAILY [facility] Last Admin: 10/29/16 13:38 Dose: 10 ml Nystatin (Nystop Powder -) 1 applic TP BID [facility] Last Admin: 10/28/16 22:53 Dose: 1 applic Ondansetron HCl (Zofran Injection) 4 mg IVPB Q6H PRN PRN Reason: NAUSEA Pantoprazole Sodium (Protonix Packets For Oral Suspension -) 40 mg PO BID [facility] Last Admin: 10/29/16 10:42 Dose: 40 mg Risperidone (Risperdal -) 0.25 mg PO TID PRN PRN Reason: AGITATION Sucralfate (Carafate Oral Suspension -) 1 gm PO QID [facility] Last Admin: 10/29/16 10:42 Dose: 1 gm - Objective Vital Signs: Vital Signs Period Temp Pulse Resp BP Sys/Albert Pulse Ox Last 24 Hr 97.4 F-98.7 F 82-90 20-20 133-152/72-79 96-97 Constitutional: Yes: Well Nourished, No Distress, Calm Cardiovascular: Yes: Regular Rate and Rhythm. No: Gallop, Murmur, Rub Respiratory: Yes: Regular, CTA Bilaterally. No: Rales, Rhonchi, Wheezes Gastrointestinal: Yes: Normal Bowel Sounds, Soft. No: Distention, Tenderness Extremities: Yes: WNL Edema: No Labs: CBC, BMP 10/30/16 07:04 10/30/16 07:04 Problem List - Problems (1) Adenocarcinoma of stomach Code(s): C16.9 - MALIGNANT NEOPLASM OF STOMACH, UNSPECIFIED (2) Acute blood loss anemia Code(s): D62 - ACUTE POSTHEMORRHAGIC ANEMIA (3) UGIB (upper gastrointestinal bleed) Code(s): K92.2 - GASTROINTESTINAL HEMORRHAGE, UNSPECIFIED (4) CAD (coronary artery disease) Code(s): I25.10 - ATHSCL HEART DISEASE OF [place] CORONARY ARTERY W/O ANG PCTRS (5) Dementia Code(s): F03.90 - UNSPECIFIED DEMENTIA WITHOUT BEHAVIORAL DISTURBANCE (6) Parkinson disease Code(s): G20 - PARKINSON'S DISEASE (7) Leukocytosis Code(s): D72.829 - ELEVATED WHITE BLOOD CELL COUNT, UNSPECIFIED Assessment/Plan (1) Adenocarcinoma of the stomach - For CT Scan of Chest/abdomen & pelvis -cause of ABLA -high risk for rebleeding -oncology consulted -? palliative care consult (2) Acute blood loss anemia Assessment/Plan: -secondary to GIB -s/p transfusion with good result -GI and heme/onc following Code(s): D62 - ACUTE POSTHEMORRHAGIC ANEMIA (3) UGIB (upper gastrointestinal bleed) Assessment/Plan: -case d/w GI, biopsy results positive for adenocarcinoma -high risk of re-bleed -continue PPI -advance diet as tolerated per GI -oncology consulted Code(s): K92.2 - GASTROINTESTINAL HEMORRHAGE, UNSPECIFIED (4) CAD (coronary artery disease) Assessment/Plan: -no complaints of chest pain -monitor -no anticoagulation or antiplatelet agents Code(s): I25.10 - ATHSCL HEART DISEASE OF [place] CORONARY ARTERY W/O ANG PCTRS (5) Dementia Assessment/Plan: -at baseline per family Code(s): F03.90 - UNSPECIFIED DEMENTIA WITHOUT BEHAVIORAL DISTURBANCE (6) Parkinson disease Assessment/Plan: -monitor Code(s): G20 - PARKINSON'S DISEASE (7) Leukocytosis Assessment/Plan: -resolved -antibiotics discontinued -cultures negative Code(s): D72.829 - ELEVATED WHITE BLOOD CELL COUNT, UNSPECIFIED
--- NOTE | 2016-10-30 18:43 | PN ---
Progress Note, Physician History of Present Illness: stable no new issues - Current Medication List Current Medications: Active Medications Fat Emulsion Intravenous (Intralipid -) 500 ml IV DAILY@2200 [facility] Last Admin: 10/29/16 22:42 Dose: 500 ml Amino Acids (Clinimix -) 1,000 mls @ 84 mls/hr IV Q12H [facility] Last Admin: 10/30/16 06:49 Dose: 84 mls/hr Multivitamins/Minerals (Infuvite Adult -) 10 ml IV DAILY [facility] Last Admin: 10/30/16 09:49 Dose: 10 ml Nystatin (Nystop Powder -) 1 applic TP BID [facility] Last Admin: 10/30/16 12:00 Dose: 1 applic Ondansetron HCl (Zofran Injection) 4 mg IVPB Q6H PRN PRN Reason: NAUSEA Pantoprazole Sodium (Protonix Packets For Oral Suspension -) 40 mg PO BID [facility] Last Admin: 10/30/16 10:25 Dose: 40 mg Risperidone (Risperdal -) 0.25 mg PO TID PRN PRN Reason: AGITATION Sucralfate (Carafate Oral Suspension -) 1 gm PO QID [facility] Last Admin: 10/30/16 18:36 Dose: 1 gm - Objective Vital Signs: Vital Signs Temperature 98.5 F 10/30/16 18:00 Pulse Rate 77 10/30/16 18:00 Respiratory Rate 18 10/30/16 18:00 Blood Pressure 132/79 10/30/16 18:00 O2 Sat by Pulse Oximetry (%) 97 10/30/16 09:00 Constitutional: Yes: No Distress, Calm Cardiovascular: Yes: Regular Rate and Rhythm Respiratory: Yes: Regular, CTA Bilaterally Gastrointestinal: Yes: Normal Bowel Sounds, Soft Musculoskeletal: Yes: WNL Extremities: Yes: WNL Neurological: Yes: Alert, Babinski negative Psychiatric: Yes: Alert Labs: CBC, BMP 10/30/16 07:04 10/30/16 07:04 INR, PTT INR 1.16 (0.82-1.09) H 10/25/16 05:30 Assessment/Plan Problem List - Problems (1) Acute blood loss anemia Code(s): D62 - ACUTE POSTHEMORRHAGIC ANEMIA (2) UGIB (upper gastrointestinal bleed) Code(s): K92.2 - GASTROINTESTINAL HEMORRHAGE, UNSPECIFIED (3) CAD (coronary artery disease) Code(s): I25.10 - ATHSCL HEART DISEASE OF [place] CORONARY ARTERY W/O ANG PCTRS (4) Dementia Code(s): F03.90 - UNSPECIFIED DEMENTIA WITHOUT BEHAVIORAL DISTURBANCE (5) Parkinson disease Code(s): G20 - PARKINSON'S DISEASE (6) Leukocytosis Code(s): D72.829 - ELEVATED WHITE BLOOD CELL COUNT, UNSPECIFIED plan continue to monitor patient biopsy results noted ct as per gi' oncology working up the patient
[2016-10-30] MEDS: FAT EMULSIONS 20% 500 ML PREMIX INFUS.BAG IV SCH (21:38)
[2016-10-31] MEDS: AMINO ACIDS 4.25%/D5W 1,000 ML IV SCH ×3 (06:05→18:30)
[2016-10-31 09:00] LABS: BASOPHIL 0.9 % (0-2.0); EOSINOPHIL 5.2 % (0-4.5); MCH 31.2 pg (25.7-33.7); MCHC 35.7 g/dl (32.0-35.9); MEAN CELL VOLUME 87.4 fl (80-96); MEAN PLT VOLUME 7.9 fl (7.5-11.1); NEUTROPHILS 54.2 % (42.8-82.8); PLATELET COUNT 252 K/MM3 (134-434); RDW 18.6 % (11.9-15.9); WHITE BLOOD COUNT 5.9 K/mm3 (4.0-10.0)
[2016-10-31 09:25] LABS: ALBUMIN 2.7 g/dl (3.4-5.0); ANION GAP 9 (8-16); CALCIUM 7.8 mg/dL (8.5-10.1); CO2 28 mmol/L (21-32)
[2016-10-31 09:27] LABS: ALK PHOS 95 U/L (45-117); BILIRUBIN,TOTAL 0.4 mg/dL (0.2-1.0); COCKROFT - GAULT 155.81; CREATININE 0.4 mg/dL (0.7-1.3)
[2016-10-31 09:35] LABS: ANISOCYTOSIS 1+; HYPOCHROMIA FEW; MICROCYTOSIS 1+; PLATELET ESTIMATE ADEQUATE (NORMAL); POLYCHROMASIA FEW
[2016-10-31 09:48] LABS: GLUCOSE,RANDOM 246 mg/dL (74-106)
[2016-10-31 10:00] LABS: TOT PROT 6.3 g/dl (6.4-8.2)
[2016-10-31] MEDS: NYSTATIN POWDER 100,000 UNITS/GM - 15 GM TOPICAL POWDER TP SCH ×2 (10:31→21:59)
[2016-10-31] MEDS: PANTOPRAZOLE SOD 40 MG SUSPENSION PACKET PO SCH ×2 (11:13→21:20)
[2016-10-31] MEDS: SUCRALFATE 1 GM/10 ML UNIT DOSE CUPS PO SCH ×4 (11:13→21:20)
[2016-10-31] MEDS: MULTIVIT INJ. ADULT COMBO WITH VIT K 1 COMBO 10 ML VIAL IV SCH (11:14)
--- NOTE | 2016-10-31 12:01 | PN ---
Progress Note (short form) - Note Progress Note: Had CT Chest/A&P yesterdy. Awaiting results. No acute event overnight. Denies nausea, vomiting, abdominal pain. Reported to have black stool this morning. - Current Medication List Current Medications: Active Medications Fat Emulsion Intravenous (Intralipid -) 500 ml IV DAILY@2200 [facility] Last Admin: 10/28/16 22:53 Dose: 500 ml Amino Acids (Clinimix -) 1,000 mls @ 84 mls/hr IV Q12H [facility] Last Admin: 10/29/16 13:37 Dose: 84 mls/hr Potassium Chloride (Potassium Chloride 10 Meq Premix Ivpb -) 100 mls @ 100 mls/ hr IVPB Q60M [facility] Stop: 10/29/16 16:59 Potassium Phosphate 16 mm/ (Sodium Chloride) 255.3333 mls @ 62.5 mls/hr IVPB ONCE ONE Stop: 10/29/16 17:57 Multivitamins/Minerals (Infuvite Adult -) 10 ml IV DAILY [facility] Last Admin: 10/29/16 13:38 Dose: 10 ml Nystatin (Nystop Powder -) 1 applic TP BID [facility] Last Admin: 10/28/16 22:53 Dose: 1 applic Ondansetron HCl (Zofran Injection) 4 mg IVPB Q6H PRN PRN Reason: NAUSEA Pantoprazole Sodium (Protonix Packets For Oral Suspension -) 40 mg PO BID [facility] Last Admin: 10/29/16 10:42 Dose: 40 mg Risperidone (Risperdal -) 0.25 mg PO TID PRN PRN Reason: AGITATION Sucralfate (Carafate Oral Suspension -) 1 gm PO QID [facility] Last Admin: 10/29/16 10:42 Dose: 1 gm - Objective Vital Signs: Vital Signs Period Temp Pulse Resp BP Sys/Albert Pulse Ox Last 24 Hr 97.4 F-98.6 F 77-94 18-20 129-157/79-87 98 Constitutional: Yes: Well Nourished, No Distress, Calm Cardiovascular: Yes: Regular Rate and Rhythm. No: Gallop, Murmur, Rub Respiratory: Yes: Regular, CTA Bilaterally. No: Rales, Rhonchi, Wheezes Gastrointestinal: Yes: Normal Bowel Sounds, Soft. No: Distention, Tenderness Extremities: Yes: WNL Edema: No Labs: CBC, BMP 10/31/16 07:15 10/31/16 07:15 Problem List - Problems (1) Adenocarcinoma of stomach Code(s): C16.9 - MALIGNANT NEOPLASM OF STOMACH, UNSPECIFIED (2) Acute blood loss anemia Code(s): D62 - ACUTE POSTHEMORRHAGIC ANEMIA (3) UGIB (upper gastrointestinal bleed) Code(s): K92.2 - GASTROINTESTINAL HEMORRHAGE, UNSPECIFIED (4) CAD (coronary artery disease) Code(s): I25.10 - ATHSCL HEART DISEASE OF [place] CORONARY ARTERY W/O ANG PCTRS (5) Dementia Code(s): F03.90 - UNSPECIFIED DEMENTIA WITHOUT BEHAVIORAL DISTURBANCE (6) Parkinson disease Code(s): G20 - PARKINSON'S DISEASE (7) Leukocytosis Code(s): D72.829 - ELEVATED WHITE BLOOD CELL COUNT, UNSPECIFIED Assessment/Plan (1) Adenocarcinoma of the stomach - S/P CT Scan of Chest/abdomen & pelvis - Noted to have black stool in the morning. Most likely bleeding in stomach. - H/H stable. - GI following. -cause of ABLA -high risk for rebleeding -oncology consulted -? palliative care consult (2) Acute blood loss anemia Assessment/Plan: -secondary to GIB -s/p transfusion with good result -GI and heme/onc following Code(s): D62 - ACUTE POSTHEMORRHAGIC ANEMIA (3) UGIB (upper gastrointestinal bleed) Assessment/Plan: -case d/w GI, biopsy results positive for adenocarcinoma -high risk of re-bleed -continue PPI -advance diet as tolerated per GI -oncology consulted Code(s): K92.2 - GASTROINTESTINAL HEMORRHAGE, UNSPECIFIED (4) CAD (coronary artery disease) Assessment/Plan: -no complaints of chest pain -monitor -no anticoagulation or antiplatelet agents Code(s): I25.10 - ATHSCL HEART DISEASE OF [place] CORONARY ARTERY W/O ANG PCTRS (5) Dementia Assessment/Plan: -at baseline per family Code(s): F03.90 - UNSPECIFIED DEMENTIA WITHOUT BEHAVIORAL DISTURBANCE (6) Parkinson disease Assessment/Plan: -monitor Code(s): G20 - PARKINSON'S DISEASE (7) Leukocytosis Assessment/Plan: -resolved -antibiotics discontinued -cultures negative Code(s): D72.829 - ELEVATED WHITE BLOOD CELL COUNT, UNSPECIFIED
--- NOTE | 2016-10-31 12:15 | PN ---
Progress Note, Physician History of Present Illness: stable no new issues - Current Medication List Current Medications: Active Medications Fat Emulsion Intravenous (Intralipid -) 500 ml IV DAILY@2200 [facility] Last Admin: 10/30/16 21:38 Dose: 500 ml Amino Acids (Clinimix -) 1,000 mls @ 84 mls/hr IV Q12H [facility] Last Admin: 10/31/16 11:21 Dose: 84 mls/hr Multivitamins/Minerals (Infuvite Adult -) 10 ml IV DAILY [facility] Last Admin: 10/31/16 11:14 Dose: 10 ml Nystatin (Nystop Powder -) 1 applic TP BID [facility] Last Admin: 10/30/16 21:38 Dose: 1 applic Ondansetron HCl (Zofran Injection) 4 mg IVPB Q6H PRN PRN Reason: NAUSEA Pantoprazole Sodium (Protonix Packets For Oral Suspension -) 40 mg PO BID [facility] Last Admin: 10/31/16 11:13 Dose: 40 mg Risperidone (Risperdal -) 0.25 mg PO TID PRN PRN Reason: AGITATION Sucralfate (Carafate Oral Suspension -) 1 gm PO QID [facility] Last Admin: 10/31/16 11:13 Dose: 1 gm - Objective Vital Signs: Vital Signs Temperature 98.2 F 10/31/16 10:34 Pulse Rate 94 H 10/31/16 10:34 Respiratory Rate 18 10/31/16 10:34 Blood Pressure 129/87 10/31/16 10:34 O2 Sat by Pulse Oximetry (%) 98 10/30/16 22:00 Constitutional: Yes: No Distress, Calm Cardiovascular: Yes: S1, S2 Respiratory: Yes: Regular, CTA Bilaterally Gastrointestinal: Yes: Normal Bowel Sounds, Soft Musculoskeletal: Yes: Other Extremities: Yes: Other Neurological: Yes: Alert, Oriented Psychiatric: Yes: Alert Labs: CBC, BMP 10/31/16 07:15 10/31/16 07:15 INR, PTT INR 1.16 (0.82-1.09) H 10/25/16 05:30 - ....Imaging Cat Scan: Image Reviewed Assessment/Plan Problem List - Problems (1) Acute blood loss anemia Code(s): D62 - ACUTE POSTHEMORRHAGIC ANEMIA (2) UGIB (upper gastrointestinal bleed) Code(s): K92.2 - GASTROINTESTINAL HEMORRHAGE, UNSPECIFIED (3) CAD (coronary artery disease) Code(s): I25.10 - ATHSCL HEART DISEASE OF [place] CORONARY ARTERY W/O ANG PCTRS (4) Dementia Code(s): F03.90 - UNSPECIFIED DEMENTIA WITHOUT BEHAVIORAL DISTURBANCE (5) Parkinson disease Code(s): G20 - PARKINSON'S DISEASE (6) Leukocytosis Code(s): D72.829 - ELEVATED WHITE BLOOD CELL COUNT, UNSPECIFIED plan continue to monitor patient biopsy results noted ct as per gi' oncology working up the patient await for final report of ct scan
[2016-10-31] MEDS: FAT EMULSIONS 20% 500 ML PREMIX INFUS.BAG IV SCH (21:21)
[2016-11-01] MEDS: AMINO ACIDS 4.25%/D5W 1,000 ML IV SCH ×4 (01:05→17:53)
[2016-11-01] MEDS ORDERED: PT OWN MED DRAWER 7, Y5N ONE (08:04)
[2016-11-01 08:14] LABS: BASOPHIL 1.2 % (0-2.0); EOSINOPHIL 3.9 % (0-4.5); MCH 32.4 pg (25.7-33.7); MCHC 37.1 g/dl (32.0-35.9); MEAN CELL VOLUME 87.4 fl (80-96); MEAN PLT VOLUME 7.7 fl (7.5-11.1); NEUTROPHILS 55.4 % (42.8-82.8); PLATELET COUNT 254 K/MM3 (134-434); RDW 19.3 % (11.9-15.9); WHITE BLOOD COUNT 6.1 K/mm3 (4.0-10.0)
[2016-11-01 08:41] LABS: ALBUMIN 2.8 g/dl (3.4-5.0); ANION GAP 7 (8-16); CO2 29 mmol/L (21-32); GLUCOSE,RANDOM 284 mg/dL (74-106)
[2016-11-01 08:46] LABS: ALK PHOS 95 U/L (45-117); BILIRUBIN,TOTAL 0.5 mg/dL (0.2-1.0); COCKROFT - GAULT 158.03; CREATININE 0.4 mg/dL (0.7-1.3)
[2016-11-01] MEDS: NYSTATIN POWDER 100,000 UNITS/GM - 15 GM TOPICAL POWDER TP SCH ×2 (09:30→23:56)
[2016-11-01] MEDS: SUCRALFATE 1 GM/10 ML UNIT DOSE CUPS PO SCH ×4 (09:30→23:21)
[2016-11-01] MEDS: PANTOPRAZOLE SOD 40 MG SUSPENSION PACKET PO SCH ×2 (09:30→23:21)
[2016-11-01] MEDS ORDERED: HYDROmorphone HCL CARPU-JECT 1 MG/1 ML DISP.SYRIN IVPB ONE (10:00)
--- NOTE | 2016-11-01 10:26 | EKG ---
Test Reason : Blood Pressure : / mmHG Vent. Rate : 090 BPM Atrial Rate : 090 BPM P-R Int : 194 ms QRS Dur : 080 ms QT Int : 376 ms P-R-T Axes : 039 067 051 degrees QTc Int : 459 ms NORMAL SINUS RHYTHM CANNOT RULE OUT ANTERIOR INFARCT , AGE UNDETERMINED ABNORMAL ECG WHEN COMPARED WITH ECG OF 26-OCT-2016 15:07, PREMATURE ATRIAL COMPLEXES ARE NO LONGER PRESENT Confirmed by MAREK WELSH, ALVARO ([id number]) on 11/01/2016 10:26:15 AM Referred By: CARLOS OLIVERA Confirmed By:ALVARO JARA MD
--- NOTE | 2016-11-01 12:32 | PN ---
Progress Note (short form) - Note Progress Note: Intermittent epigastric discomfort reported. Noted that pathology revealed Adenocarcinoma. Intake & Output 10/29/16 10/30/16 10/31/16 11/01/16 23:59 23:59 23:59 23:59 Intake Total 4274 2380 3794 1208 Output Total 1500 400 300 Balance 2774 1980 3494 1208 Weight 152 lb 9.6 oz 154 lb 6.4 oz 152 lb 3.2 oz 154 lb 6 oz Last Vital Signs Temp Pulse Resp BP Pulse Ox 98.1 F 87 18 150/82 97 11/01/16 08:40 11/01/16 08:40 11/01/16 08:40 11/01/16 08:40 11/01/16 09:00 Active Medications Fat Emulsion Intravenous (Intralipid -) 500 ml IV DAILY@2200 [facility] Last Admin: 10/31/16 21:21 Dose: 500 ml Amino Acids (Clinimix -) 1,000 mls @ 84 mls/hr IV Q12H [facility] Last Admin: 11/01/16 06:03 Dose: Not Given Multivitamins/Minerals (Infuvite Adult -) 10 ml IV DAILY [facility] Last Admin: 10/31/16 11:14 Dose: 10 ml Nystatin (Nystop Powder -) 1 applic TP BID [facility] Last Admin: 11/01/16 09:30 Dose: 1 applic Ondansetron HCl (Zofran Injection) 4 mg IVPB Q6H PRN PRN Reason: NAUSEA Pantoprazole Sodium (Protonix Packets For Oral Suspension -) 40 mg PO BID [facility] Last Admin: 11/01/16 09:30 Dose: 40 mg Risperidone (Risperdal -) 0.25 mg PO TID PRN PRN Reason: AGITATION Sucralfate (Carafate Oral Suspension -) 1 gm PO QID [facility] Last Admin: 11/01/16 09:30 Dose: 1 gm General: awake, alert responsive CV: S1S2, irr Pulm: diminished at the bases Abd: Soft, NT, ND, (+) BS Ext: WWP Neuro: grossly intact Laboratory Results - last 24 hr 11/01/16 11/01/16 06:30 06:30 WBC 6.1 RBC 3.67 L Hgb 11.9 Hct 32.1 L MCV 87.4 MCHC 37.1 H RDW 19.3 H Plt Count 254 MPV 7.7 Neutrophils % 55.4 Lymphocytes % 30.6 Monocytes % 8.9 Eosinophils % 3.9 Basophils % 1.2 Sodium 135 L Potassium 3.5 Chloride 99 Carbon Dioxide 29 Anion Gap 7 L BUN TNP Creatinine 0.4 L Creat Clearance w eGFR > 60 Random Glucose 284 H Calcium TNP Total Bilirubin 0.5 D AST TNP ALT TNP Alkaline Phosphatase 95 Total Protein TNP Albumin 2.8 L ASSESSMENT AND PLAN: Gastric Adenocarcinoma GI Bleed Acute Blood Loss Anemia s/p PRBC transfusions Lactic Acidosis from above HTN CAD s/p CABG Parkinsons Disease Dementia Ongoing CA workup O2 as needed PPI Follow CBC Normal transfusion thresholds Noted he remains on Clinimix Dr Adams
[2016-11-01] MEDS: MULTIVIT INJ. ADULT COMBO WITH VIT K 1 COMBO 10 ML VIAL IV SCH (12:54)
--- NOTE | 2016-11-01 13:28 | PN ---
Progress Note, Physician Chief Complaint: Mr Mireles says he is feeling well. - Current Medication List Current Medications: Active Medications Fat Emulsion Intravenous (Intralipid -) 500 ml IV DAILY@2200 [facility] Last Admin: 10/31/16 21:21 Dose: 500 ml Amino Acids (Clinimix -) 1,000 mls @ 84 mls/hr IV Q12H [facility] Last Admin: 11/01/16 12:55 Dose: 84 mls/hr Multivitamins/Minerals (Infuvite Adult -) 10 ml IV DAILY [facility] Last Admin: 11/01/16 12:54 Dose: 10 ml Nystatin (Nystop Powder -) 1 applic TP BID [facility] Last Admin: 11/01/16 09:30 Dose: 1 applic Ondansetron HCl (Zofran Injection) 4 mg IVPB Q6H PRN PRN Reason: NAUSEA Pantoprazole Sodium (Protonix Packets For Oral Suspension -) 40 mg PO BID [facility] Last Admin: 11/01/16 09:30 Dose: 40 mg Risperidone (Risperdal -) 0.25 mg PO TID PRN PRN Reason: AGITATION Sucralfate (Carafate Oral Suspension -) 1 gm PO QID [facility] Last Admin: 11/01/16 13:02 Dose: 1 gm - Objective Vital Signs: Vital Signs Temperature 97.9 F 11/01/16 13:01 Pulse Rate 83 11/01/16 13:01 Respiratory Rate 20 11/01/16 13:01 Blood Pressure 129/68 11/01/16 13:01 O2 Sat by Pulse Oximetry (%) 97 11/01/16 09:00 Constitutional: Yes: Well Nourished, No Distress, Calm Cardiovascular: Yes: Regular Rate and Rhythm. No: Gallop, Murmur, Rub Respiratory: Yes: Regular, CTA Bilaterally. No: Rales, Rhonchi, Wheezes Gastrointestinal: Yes: Normal Bowel Sounds, Soft. No: Distention, Tenderness Extremities: Yes: WNL Edema: No Labs: CBC, BMP 11/01/16 06:30 11/01/16 06:30 INR, PTT INR 1.16 (0.82-1.09) H 10/25/16 05:30 Problem List - Problems (1) Adenocarcinoma of stomach Code(s): C16.9 - MALIGNANT NEOPLASM OF STOMACH, UNSPECIFIED (2) Acute blood loss anemia Code(s): D62 - ACUTE POSTHEMORRHAGIC ANEMIA (3) UGIB (upper gastrointestinal bleed) Code(s): K92.2 - GASTROINTESTINAL HEMORRHAGE, UNSPECIFIED (4) CAD (coronary artery disease) Code(s): I25.10 - ATHSCL HEART DISEASE OF [place] CORONARY ARTERY W/O ANG PCTRS (5) Dementia Code(s): F03.90 - UNSPECIFIED DEMENTIA WITHOUT BEHAVIORAL DISTURBANCE (6) Parkinson disease Code(s): G20 - PARKINSON'S DISEASE (7) Leukocytosis Code(s): D72.829 - ELEVATED WHITE BLOOD CELL COUNT, UNSPECIFIED Assessment/Plan (1) Adenocarcinoma of the stomach -cause of ABLA -high risk for rebleeding -oncology consulted and note reviewed -CT scans reviewed -await further recommendations per GI and oncology (2) Acute blood loss anemia Assessment/Plan: -secondary to GIB -s/p transfusion with good result -H/H slow decreasing -GI and heme/onc following -advance diet per GI Code(s): D62 - ACUTE POSTHEMORRHAGIC ANEMIA (3) UGIB (upper gastrointestinal bleed) Assessment/Plan: -case d/w GI, biopsy results positive for adenocarcinoma -high risk of re-bleed -continue PPI -advance diet as tolerated per GI -oncology consulted and following Code(s): K92.2 - GASTROINTESTINAL HEMORRHAGE, UNSPECIFIED (4) CAD (coronary artery disease) Assessment/Plan: -no complaints of chest pain -monitor -no anticoagulation or antiplatelet agents Code(s): I25.10 - ATHSCL HEART DISEASE OF [place] CORONARY ARTERY W/O ANG PCTRS (5) Dementia Assessment/Plan: -at baseline per family Code(s): F03.90 - UNSPECIFIED DEMENTIA WITHOUT BEHAVIORAL DISTURBANCE (6) Parkinson disease Assessment/Plan: -monitor Code(s): G20 - PARKINSON'S DISEASE (7) Leukocytosis Assessment/Plan: -resolved -antibiotics discontinued -cultures negative Code(s): D72.829 - ELEVATED WHITE BLOOD CELL COUNT, UNSPECIFIED
--- NOTE | 2016-11-01 17:25 | PN ---
Progress Note, Physician History of Present Illness: stable no new issues patient doing well - Current Medication List Current Medications: Active Medications Fat Emulsion Intravenous (Intralipid -) 500 ml IV DAILY@2200 [facility] Last Admin: 10/31/16 21:21 Dose: 500 ml Amino Acids (Clinimix -) 1,000 mls @ 84 mls/hr IV Q12H [facility] Last Admin: 11/01/16 12:55 Dose: 84 mls/hr Multivitamins/Minerals (Infuvite Adult -) 10 ml IV DAILY [facility] Last Admin: 11/01/16 12:54 Dose: 10 ml Nystatin (Nystop Powder -) 1 applic TP BID [facility] Last Admin: 11/01/16 09:30 Dose: 1 applic Ondansetron HCl (Zofran Injection) 4 mg IVPB Q6H PRN PRN Reason: NAUSEA Pantoprazole Sodium (Protonix Packets For Oral Suspension -) 40 mg PO BID [facility] Last Admin: 11/01/16 09:30 Dose: 40 mg Risperidone (Risperdal -) 0.25 mg PO TID PRN PRN Reason: AGITATION Sucralfate (Carafate Oral Suspension -) 1 gm PO QID [facility] Last Admin: 11/01/16 17:05 Dose: 1 gm - Objective Vital Signs: Vital Signs Temperature 97.9 F 11/01/16 13:01 Pulse Rate 83 11/01/16 13:01 Respiratory Rate 20 11/01/16 13:01 Blood Pressure 129/68 11/01/16 13:01 O2 Sat by Pulse Oximetry (%) 97 11/01/16 09:00 Constitutional: Yes: No Distress, Calm HENT: Yes: Atraumatic Cardiovascular: Yes: S1, S2 Respiratory: Yes: Regular, CTA Bilaterally Gastrointestinal: Yes: Normal Bowel Sounds, Soft Musculoskeletal: Yes: WNL Extremities: Yes: WNL Neurological: Yes: Alert, Oriented Psychiatric: Yes: Alert, Oriented Labs: CBC, BMP 11/01/16 06:30 11/01/16 06:30 INR, PTT INR 1.16 (0.82-1.09) H 10/25/16 05:30 Assessment/Plan Problem List Problem List - Problems (1) Adenocarcinoma of stomach Code(s): C16.9 - MALIGNANT NEOPLASM OF STOMACH, UNSPECIFIED (2) Acute blood loss anemia Code(s): D62 - ACUTE POSTHEMORRHAGIC ANEMIA (3) UGIB (upper gastrointestinal bleed) Code(s): K92.2 - GASTROINTESTINAL HEMORRHAGE, UNSPECIFIED (4) CAD (coronary artery disease) Code(s): I25.10 - ATHSCL HEART DISEASE OF [place] CORONARY ARTERY W/O ANG PCTRS (5) Dementia Code(s): F03.90 - UNSPECIFIED DEMENTIA WITHOUT BEHAVIORAL DISTURBANCE (6) Parkinson disease Code(s): G20 - PARKINSON'S DISEASE (7) Leukocytosis Code(s): D72.829 - ELEVATED WHITE BLOOD CELL COUNT, UNSPECIFIED UNSPECIFIED plan continue to monitor patient biopsy results noted ct as per gi' oncology working up the patient stable off of abx
--- NOTE | 2016-11-01 22:52 | PN ---
Progress Note (short form) - Note Progress Note: Patient seen and examined mildly confused no specific complaints Last Vital Signs Temp Pulse Resp BP Pulse Ox 97.6 F 78 16 141/76 97 11/01/16 18:00 11/01/16 18:00 11/01/16 18:00 11/01/16 18:00 11/01/16 09:00 Cor: RSR, No murmurs, No gallops Lungs: Clear to P&A Abd: Soft, Normal bowel sounds, No organomegaly Ext:No significant edema Abnormal Lab Results 11/01/16 11/01/16 06:30 06:30 RBC 3.67 L Hct 32.1 L MCHC 37.1 H RDW 19.3 H Sodium 135 L Anion Gap 7 L Creatinine 0.4 L Random Glucose 284 H Albumin 2.8 L Active Medications Generic Name Dose Route Start Last Admin Trade Name Freq PRN Reason Stop Dose Admin Fat Emulsion Intravenous 500 ml 10/26/16 22:00 10/31/16 21:21 Intralipid - IV 500 ml DAILY@2200 [facility] Administration Amino Acids 1,000 mls @ 84 mls/hr 10/26/16 18:30 11/01/16 17:53 Clinimix - IV Not Given Q12H [facility] Multivitamins/Minerals 10 ml 10/26/16 10:00 11/01/16 12:54 Infuvite Adult - IV 10 ml DAILY [facility] Administration Nystatin 1 applic 10/30/16 22:00 11/01/16 09:30 Nystop Powder - TP 1 applic BID [facility] Administration Ondansetron HCl 4 mg 10/26/16 07:56 Zofran Injection IVPB Q6H PRN NAUSEA Pantoprazole Sodium 40 mg 10/26/16 22:00 11/01/16 09:30 Protonix Packets For Oral Suspension - PO 40 mg BID [facility] Administration Risperidone 0.25 mg 10/26/16 07:56 Risperdal - PO TID PRN AGITATION Sucralfate 1 gm 10/26/16 18:00 11/01/16 17:05 Carafate Oral Suspension - PO 1 gm QID [facility] Administration A/P 76 y/o with multiple comorbidities, HTN, CAD, dementia, parkinsons, bed bound , comes in with gi bleed, hematemesis, anemia and gastric cancer Discussed with GI team -- Dr. Munoz who felt the ulcer was invasive through the wall Her2 studies --negative CT c/a/p --ubrevealing except L2-3 compression fx will get rad-onc consult PET_CT as a n outpatient discussed with daughter who understands the challenges involved in treating him given multiple comorbidities
[2016-11-01] MEDS: FAT EMULSIONS 20% 500 ML PREMIX INFUS.BAG IV SCH (23:21)
[2016-11-02] MEDS: AMINO ACIDS 4.25%/D5W 1,000 ML IV SCH ×3 (02:30→15:16)
[2016-11-02] MEDS: NYSTATIN POWDER 100,000 UNITS/GM - 15 GM TOPICAL POWDER TP SCH ×2 (06:33→10:45)
[2016-11-02 07:56] LABS: BASOPHIL 1.1 % (0-2.0); EOSINOPHIL 4.3 % (0-4.5); MCH 30.2 pg (25.7-33.7); MCHC 34.4 g/dl (32.0-35.9); MEAN CELL VOLUME 87.7 fl (80-96); MEAN PLT VOLUME 7.9 fl (7.5-11.1); PLATELET COUNT 217 K/MM3 (134-434); RDW 17.7 % (11.9-15.9); WHITE BLOOD COUNT 5.6 K/mm3 (4.0-10.0)
[2016-11-02 08:21] LABS: CALCIUM 8.2 mg/dL (8.5-10.1); COCKROFT - GAULT 157.14; CREATININE 0.4 mg/dL (0.7-1.3); MAGNESIUM 1.8 mg/dL (1.8-2.4); PHOSPHOROUS 2.4 mg/dL (2.5-4.9)
[2016-11-02] MEDS: SUCRALFATE 1 GM/10 ML UNIT DOSE CUPS PO SCH ×3 (10:48→17:09)
[2016-11-02] MEDS: PANTOPRAZOLE SOD 40 MG SUSPENSION PACKET PO SCH (10:48)
--- NOTE | 2016-11-02 12:59 | PN ---
Progress Note, Physician Chief Complaint: Daughter at bedside. Mr Mireles is without complaint. Daughter says he is not having pain or shortness of breath. Eating but saying he is not hungry. - Current Medication List Current Medications: Active Medications Fat Emulsion Intravenous (Intralipid -) 500 ml IV DAILY@2200 [facility] Last Admin: 11/01/16 23:21 Dose: 500 ml Amino Acids (Clinimix -) 1,000 mls @ 84 mls/hr IV Q12H [facility] Last Admin: 11/02/16 05:50 Dose: Not Given Multivitamins/Minerals (Infuvite Adult -) 10 ml IV DAILY [facility] Last Admin: 11/01/16 12:54 Dose: 10 ml Nystatin (Nystop Powder -) 1 applic TP BID [facility] Last Admin: 11/02/16 10:45 Dose: 1 applic Ondansetron HCl (Zofran Injection) 4 mg IVPB Q6H PRN PRN Reason: NAUSEA Pantoprazole Sodium (Protonix Packets For Oral Suspension -) 40 mg PO BID [facility] Last Admin: 11/02/16 10:48 Dose: 40 mg Risperidone (Risperdal -) 0.25 mg PO TID PRN PRN Reason: AGITATION Sucralfate (Carafate Oral Suspension -) 1 gm PO QID [facility] Last Admin: 11/02/16 10:48 Dose: 1 gm - Objective Vital Signs: Vital Signs Temperature 98.2 F 11/02/16 06:00 Pulse Rate 82 11/02/16 06:00 Respiratory Rate 18 11/02/16 06:00 Blood Pressure 149/70 11/02/16 06:00 O2 Sat by Pulse Oximetry (%) 97 11/01/16 21:00 Constitutional: Yes: Well Nourished, No Distress, Calm Cardiovascular: Yes: Regular Rate and Rhythm. No: Gallop, Murmur, Rub Respiratory: Yes: Regular, CTA Bilaterally. No: Rales, Rhonchi, Wheezes Gastrointestinal: Yes: Normal Bowel Sounds, Soft. No: Distention, Tenderness Extremities: Yes: WNL Edema: No Labs: CBC, BMP 11/02/16 06:55 11/02/16 06:55 INR, PTT INR 1.16 (0.82-1.09) H 10/25/16 05:30 Problem List - Problems (1) Adenocarcinoma of stomach Code(s): C16.9 - MALIGNANT NEOPLASM OF STOMACH, UNSPECIFIED (2) Acute blood loss anemia Code(s): D62 - ACUTE POSTHEMORRHAGIC ANEMIA (3) UGIB (upper gastrointestinal bleed) Code(s): K92.2 - GASTROINTESTINAL HEMORRHAGE, UNSPECIFIED (4) CAD (coronary artery disease) Code(s): I25.10 - ATHSCL HEART DISEASE OF [place] CORONARY ARTERY W/O ANG PCTRS (5) Dementia Code(s): F03.90 - UNSPECIFIED DEMENTIA WITHOUT BEHAVIORAL DISTURBANCE (6) Parkinson disease Code(s): G20 - PARKINSON'S DISEASE (7) Leukocytosis Code(s): D72.829 - ELEVATED WHITE BLOOD CELL COUNT, UNSPECIFIED Assessment/Plan (1) Adenocarcinoma of the stomach -cause of ABLA -high risk for rebleeding -oncology consulted and note reviewed -case d/w daughter -saying patient and family are considering comfort measures -will consult palliative care to discuss options (2) Acute blood loss anemia Assessment/Plan: -secondary to GIB -s/p transfusion with good result -H/H stable -GI and heme/onc following -advance diet per GI Code(s): D62 - ACUTE POSTHEMORRHAGIC ANEMIA (3) UGIB (upper gastrointestinal bleed) Assessment/Plan: -case d/w GI, biopsy results positive for adenocarcinoma -high risk of re-bleed -continue PPI -advance diet as tolerated per GI Code(s): K92.2 - GASTROINTESTINAL HEMORRHAGE, UNSPECIFIED (4) CAD (coronary artery disease) Assessment/Plan: -no complaints of chest pain -monitor -no anticoagulation or antiplatelet agents Code(s): I25.10 - ATHSCL HEART DISEASE OF [place] CORONARY ARTERY W/O ANG PCTRS (5) Dementia Assessment/Plan: -at baseline per family Code(s): F03.90 - UNSPECIFIED DEMENTIA WITHOUT BEHAVIORAL DISTURBANCE (6) Parkinson disease Assessment/Plan: -monitor Code(s): G20 - PARKINSON'S DISEASE (7) Leukocytosis Assessment/Plan: -resolved -antibiotics discontinued -cultures negative Code(s): D72.829 - ELEVATED WHITE BLOOD CELL COUNT, UNSPECIFIED Dispo -family considering comfort measures -follow up palliative care conference
[2016-11-02 15:09] VITALS: BP 142/86; PULSE 95; TEMP 98.1
[2016-11-02] MEDS ORDERED: PT OWN MED DRAWER 7, Y5N ONE (15:11)
[2016-11-02] MEDS: MULTIVIT INJ. ADULT COMBO WITH VIT K 1 COMBO 10 ML VIAL IV SCH (15:16)
--- NOTE | 2016-11-02 16:36 | DS ---
Physical Examination Vital Signs: Vital Signs Temperature 98.1 F 11/02/16 14:07 Pulse Rate 95 H 11/02/16 14:07 Respiratory Rate 24 11/02/16 14:07 Blood Pressure 142/86 11/02/16 14:07 O2 Sat by Pulse Oximetry (%) 97 11/02/16 09:00 Labs: CBC, BMP 11/02/16 06:55 11/02/16 06:55 Discharge Summary Reason For Visit: UPPER GI BLEED Current Active Problems Acute blood loss anemia (Acute) Adenocarcinoma of stomach (Acute) Anemia (Acute) CAD (coronary artery disease) (Acute) Dementia (Acute) Leukocytosis (Acute) Parkinson disease (Acute) S/P CABG x 3 (Acute) UGIB (upper gastrointestinal bleed) (Acute) Hospital Course: (1) Adenocarcinoma of stomach Code(s): C16.9 - MALIGNANT NEOPLASM OF STOMACH, UNSPECIFIED (2) Acute blood loss anemia Code(s): D62 - ACUTE POSTHEMORRHAGIC ANEMIA (3) UGIB (upper gastrointestinal bleed) Code(s): K92.2 - GASTROINTESTINAL HEMORRHAGE, UNSPECIFIED (4) CAD (coronary artery disease) Code(s): I25.10 - ATHSCL HEART DISEASE OF [place] CORONARY ARTERY W/O ANG PCTRS (5) Dementia Code(s): F03.90 - UNSPECIFIED DEMENTIA WITHOUT BEHAVIORAL DISTURBANCE (6) Parkinson disease Code(s): G20 - PARKINSON'S DISEASE (7) Leukocytosis Code(s): D72.829 - ELEVATED WHITE BLOOD CELL COUNT, UNSPECIFIED Mr Mireles is a pleasant 76 year old male who came in with ABLA secondary to poorly differentiated adenocarcinoma of the stomach. He was admitted originally to the ICU and underwent to EGDs by GI. Ulcer was cauterized and biopsies were taken, he was found to have adenocarcinoma. He is high risk for re-bleeding. He was started on sucralfate and protonix. Case was discussed with family and it and he had made his wishes known in this situation. According to his wishes he will be placed on comfort measures only. He is currently stable for transfer back to [facility] on comfort measures only. 32 minutes spent in discussion with family and preparation of this discharge Condition: Poor - Instructions Diet, Activity, Other Instructions: diet and activity for comfort Referrals: Otoniel Thompson MD [Primary Care Provider] - Disposition: NURSING HOME FACILITY - Home Medications Comprehensive Discharge Medication List: Ambulatory Orders Nystatin Powder [Nystop Powder -] 1 applic TP BID applic 11/02/16 Pantoprazole Suspension [Protonix Packets For Oral Suspension -] 40 mg PO BID packet 11/02/16 Risperidone [Risperdal -] 0.25 mg PO TID PRN #0 tablet 11/02/16 Sucralfate Oral Suspension [Carafate Oral Suspension -] 1 gm PO QID ml
--- NOTE | 2016-11-02 16:58 | PN ---
Progress Note (short form) - Note Progress Note: Intermittent epigastric discomfort has somewhat improved. For D/C to SNF with comfort measures only Intake & Output 10/30/16 10/31/16 11/01/16 11/02/16 23:59 23:59 23:59 23:59 Intake Total 2380 3794 2923 1794 Output Total 400 300 Balance 1980 3494 2923 1794 Weight 154 lb 6.4 oz 152 lb 3.2 oz 154 lb 6 oz 153 lb 8 oz Last Vital Signs Temp Pulse Resp BP Pulse Ox 98.1 F 95 H 24 142/86 97 11/02/16 14:07 11/02/16 14:07 11/02/16 14:07 11/02/16 14:07 11/02/16 09:00 Active Medications Fat Emulsion Intravenous (Intralipid -) 500 ml IV DAILY@2200 [facility] Last Admin: 11/01/16 23:21 Dose: 500 ml Amino Acids (Clinimix -) 1,000 mls @ 84 mls/hr IV Q12H [facility] Last Admin: 11/02/16 15:16 Dose: 84 mls/hr Multivitamins/Minerals (Infuvite Adult -) 10 ml IV DAILY [facility] Last Admin: 11/02/16 15:16 Dose: 10 ml Nystatin (Nystop Powder -) 1 applic TP BID [facility] Last Admin: 11/02/16 10:45 Dose: 1 applic Ondansetron HCl (Zofran Injection) 4 mg IVPB Q6H PRN PRN Reason: NAUSEA Pantoprazole Sodium (Protonix Packets For Oral Suspension -) 40 mg PO BID [facility] Last Admin: 11/02/16 10:48 Dose: 40 mg Risperidone (Risperdal -) 0.25 mg PO TID PRN PRN Reason: AGITATION Sucralfate (Carafate Oral Suspension -) 1 gm PO QID [facility] Last Admin: 11/02/16 15:16 Dose: 1 gm General: awake, alert responsive CV: S1S2, irr Pulm: diminished at the bases Abd: Soft, NT, ND, (+) BS Ext: WWP Neuro: grossly intact Laboratory Results - last 24 hr 11/02/16 11/02/16 06:55 06:55 WBC 5.6 RBC 3.74 L Hgb 11.3 L Hct 32.8 L MCV 87.7 MCHC 34.4 RDW 17.7 H Plt Count 217 MPV 7.9 Neutrophils % 56.0 Lymphocytes % 30.8 Monocytes % 7.8 Eosinophils % 4.3 Basophils % 1.1 Sodium 137 Potassium 3.6 Chloride 99 Carbon Dioxide 27 Anion Gap 11 BUN 14 D Creatinine 0.4 L Random Glucose 270 H Calcium 8.2 L Phosphorus 2.4 L Magnesium 1.8 ASSESSMENT AND PLAN: Gastric Adenocarcinoma GI Bleed Acute Blood Loss Anemia s/p PRBC transfusions Lactic Acidosis from above HTN CAD s/p CABG Parkinsons Disease Dementia For D/C to SNF with comfort measures Supportive care Dr Adams
--- NOTE | 2016-11-02 18:36 | CONS ---
DATE OF CONSULTATION: 11/02/2016 REFERRING PHYSICIAN: Evelia Elizabeth M.D. REASON FOR CONSULTATION: Upper GI bleed secondary to gastric cancer. HISTORY OF PRESENT ILLNESS: The patient is a 76-year-old [place] Citizen speaking gentleman who according to the chart had an episode of hematemesis and was brought in for further evaluation. A CT of the abdomen and pelvis showed mild gallbladder distention with cholelithiasis and fecal retention. He received blood transfusion for hematocrit of 20.3, hemoglobin of 5.8. He was seen by Dr. Munoz who performed upper endoscopy which revealed a 2-cm ulcer with a bleeding vessel which was cauterized. An attempted hemoclip placement was unsuccessful. Repeat EGD with biopsy of the ulcer demonstrated intestinal type, poorly differentiated adenocarcinoma. There was chronic gastritis without H. pylori in the biopsy of the gastric body. Staging CT chest, abdomen and pelvis with contrast showed no evidence of distant disease. There is a moderate compression fracture of L2 and L3 without canal compromise. He was evaluated by medical oncology and we are now asked to consider radiotherapy. Patient is a poor historian. He acknowledges pain in the epigastric region. He denies nausea, vomiting, diarrhea, or dark stools. PAST MEDICAL HISTORY: Dementia. Parkinson disease. Coronary artery disease. Hypertension. Hyperlipidemia. Anemia. Coronary artery bypass graft. Cataract excision. ALLERGIES: No known drug allergies. CURRENT MEDICATIONS: Nystatin powder, Carafate suspension, Protonix 40 b.i.d., Zofran p.r.n., Risperdal p.r.n., clinamen. SOCIAL HISTORY: Former heavy alcohol. Former smoker. Resides in detention. FAMILY HISTORY: Father cirrhosis. Mother tumor of unknown. Brother stroke. REVIEW OF SYSTEMS: As noted. PHYSICAL EXAMINATION: General: male in no acute distress. Vital Signs: Temperature 98.2, blood pressure 149/70, pulse 82, respiratory rate 18, height 5 feet 9 inches, weight 153 pounds, Sa02 97% on 2 L nasal cannula. HEENT: Moist mucous membranes. Mild pallor. Anicteric. Oral cavity dry mucosa, no ulcerative or mass lesions. Neck: No adenopathy with thyroid mass. Chest: Decreased breath sounds bilaterally. No axillary adenopathy. Cardiovascular: Regular . Abdomen: Mild epigastric tenderness. No distention, rebound or guarding. No inguinal adenopathy. Extremities: Compression sleeves in place. No significant edema. PATHOLOGIC DATA: Gastric ulcer biopsy October 26, 2016, see HPI. RADIOLOGIC DATA: CT chest, abdomen, and pelvis October 30, 2016, see HPI. LABORATORY DATA: Electrolytes within normal limits. BUN 14, creatinine 0.4. WBC 6.8, hemoglobin 9.1, platelet count 257,000. 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 Staging CTs reveal lumbar vertebral compression fractures but no suspicious distant disease. There is concern for re-bleeding and subsequent transfusions which may nessitate repeat gastrointestinal intervention with or without cauterization. Given his poor PS , he is unlikely to tolerate curative therapy even if disease is localized. I understand that comfort measures are being considered but if the patient/family wish to consider therapeutic options, a course of palliative radiation therapy can be given to decrease the chance of recurrent bleed and transfusions. However, the option of palliative/supportive care is not unreasonable given his extensive comorbidities. Thank you for asking me to see this patient. SHANNON CEBALLOS M.D. BRAD/[id number] MTDD
--- NOTE | 2016-11-02 21:21 | PN ---
Progress Note, Physician History of Present Illness: stable no new events patient being followed by gi - Objective Vital Signs: Vital Signs Temperature 98.1 F 11/02/16 14:07 Pulse Rate 95 H 11/02/16 14:07 Respiratory Rate 24 11/02/16 14:07 Blood Pressure 142/86 11/02/16 14:07 O2 Sat by Pulse Oximetry (%) 97 11/02/16 09:00 Constitutional: Yes: No Distress, Calm Cardiovascular: Yes: Regular Rate and Rhythm Respiratory: Yes: Regular, CTA Bilaterally Gastrointestinal: Yes: Normal Bowel Sounds, Soft Musculoskeletal: Yes: WNL Extremities: Yes: WNL Neurological: Yes: Alert, Oriented Psychiatric: Yes: Alert, Oriented Labs: CBC, BMP 11/02/16 06:55 11/02/16 06:55 INR, PTT INR 1.16 (0.82-1.09) H 10/25/16 05:30 Assessment/Plan Problem List Problem List - Problems (1) Adenocarcinoma of stomach Code(s): C16.9 - MALIGNANT NEOPLASM OF STOMACH, UNSPECIFIED (2) Acute blood loss anemia Code(s): D62 - ACUTE POSTHEMORRHAGIC ANEMIA (3) UGIB (upper gastrointestinal bleed) Code(s): K92.2 - GASTROINTESTINAL HEMORRHAGE, UNSPECIFIED (4) CAD (coronary artery disease) Code(s): I25.10 - ATHSCL HEART DISEASE OF [place] CORONARY ARTERY W/O ANG PCTRS (5) Dementia Code(s): F03.90 - UNSPECIFIED DEMENTIA WITHOUT BEHAVIORAL DISTURBANCE (6) Parkinson disease Code(s): G20 - PARKINSON'S DISEASE (7) Leukocytosis Code(s): D72.829 - ELEVATED WHITE BLOOD CELL COUNT, UNSPECIFIED UNSPECIFIED plan continue to monitor patient biopsy results noted ct as per gi' stable
== END 2016-11-02 17:22 | DRG 374 ==
LOC: JER 23:23 → JERBED 10-21 01:56 → UNDOADMIN 10-21 02:02 → JERBED 10-21 02:02 → JICU 10-21 03:41 → J5S 10-25 22:34
PROVIDERS: ADMIT Internal Medicine Geriatric Medicine; ATTEND Internal Medicine Geriatric Medicine
PROC: 30233N1 Transfusion of Nonautologous Red Blood Cells into Peripheral Vein, Percutaneous Approach (ICD-10-PCS; 2016-10-21)
PROC: 3E0G8GC Introduction of Other Therapeutic Substance into Upper GI, Via Natural or Artificial Opening Endoscopic (ICD-10-PCS; 2016-10-22)
PROC: 0W3P8ZZ Control Bleeding in Gastrointestinal Tract, Via Natural or Artificial Opening Endoscopic (ICD-10-PCS; 2016-10-22)
PROC: 0DJ08ZZ Inspection of Upper Intestinal Tract, Via Natural or Artificial Opening Endoscopic (ICD-10-PCS; principal; 2016-10-22 14:30)
PROC: 0DB68ZX Excision of Stomach, Via Natural or Artificial Opening Endoscopic, Diagnostic (ICD-10-PCS; 2016-10-26)
DX: C16.9 Malignant neoplasm of stomach, unspecified (principal); K25.4 Chronic or unspecified gastric ulcer with hemorrhage; D62 Acute posthemorrhagic anemia; E87.2 Acidosis; G20 Parkinson's disease; F02.80 Dementia in other diseases classified elsewhere, unspecified severity, without behavioral disturbance, psychotic disturbance, mood disturbance, and anxiety; I25.10 Atherosclerotic heart disease of native coronary artery without angina pectoris; D64.9 Anemia, unspecified; E11.9 Type 2 diabetes mellitus without complications; Z95.1 Presence of aortocoronary bypass graft; E78.5 Hyperlipidemia, unspecified; Z79.84 Long term (current) use of oral hypoglycemic drugs; E83.42 Hypomagnesemia; Z66 Do not resuscitate; Z87.891 Personal history of nicotine dependence; K44.9 Diaphragmatic hernia without obstruction or gangrene; Z74.01 Bed confinement status; D72.829 Elevated white blood cell count, unspecified
CPT/HCPCS: 36415; 36430; 71010-TC; 71260-TC; 74176-TC; 74177-TC; 80048; 80053; 81003; 81015; 82550; 83605; 83735; 83880; 84100; 84484; 85025; 85027; 85610; 85730; 86850; 86900; 86901; 86922; 87040; 87086; 88305-TC; 93005; 93010; 97116-GP; 97161-GP; 99281-25; P9038; P9058